=== PATIENT | female | born 1975 | race Caucasian/White ===

== ENCOUNTER → 2017-08-10 | Outpatient (CLI) | payer BC ==
--- NOTE | 2017-08-12 07:34 | MM ---
Reason for exam: screening (asymptomatic). Last mammogram was performed 1 year and 2 months ago. History: Patient is nulliparous. Family history of breast cancer in paternal aunt. Taking hormonal contraceptives for 17 years beginning at age 22. Physical Findings: A clinical breast exam by your physician is recommended on an annual basis and results should be correlated with mammographic findings. MG Screening Mammo w CAD Bilateral CC and MLO view(s) were taken. Prior study comparison: June 19, 2016, bilateral MG screening mammo w CAD. December 28, 2014, bilateral MG screening mammo w CAD. The breast tissue is heterogeneously dense. This may lower the sensitivity of mammography. No significant changes when compared with prior studies. ASSESSMENT: Negative, BI-RAD 1 RECOMMENDATION: Routine screening mammogram of both breasts in 1 year.
== END ==
LOC: RADMAMWWP 07:05
PROVIDERS: ATTEND Family Medicine
DX: Z12.31 Encounter for screening mammogram for malignant neoplasm of breast (principal)

== ENCOUNTER → 2017-11-23 | Outpatient (CLI) | payer BC | END | disposition home or self-care (01) | LOC: RADNMMAIN 09:14 | PROVIDERS: ATTEND Family Medicine | DX: Z53.9 Procedure and treatment not carried out, unspecified reason (principal) ==

== ENCOUNTER → 2017-11-23 | Outpatient (CLI) | payer BC ==
[2017-11-23 10:47] LABS: Basophils # (A) 0.1 k/uL (0-0.2); Basophils % (A) 0 %; Eosinophils % (A) 0 %; HCT 45.3 % (34.0-46.0); HGB 14.8 gm/dL (11.4-16.0); Lymphocytes # (A) 3.8 k/uL (1.0-4.8); Lymphocytes % (A) 28 %; MCH 30.6 pg (25.0-35.0); MCHC 32.6 g/dL (31.0-37.0); MCV 93.9 fL (80.0-100.0); Mean Platelet Volume 8.1; Monocytes # (A) 0.8 k/uL (0-1.0); Monocytes % (A) 6 %; Neutrophils # (A) 8.8 k/uL (1.3-7.7); Neutrophils % (A) 64 %; Platelet Count 227 k/uL (150-450); RBC 4.83 m/uL (3.80-5.40); RDW 12.4 % (11.5-15.5); WBC 13.7 k/uL (3.8-10.6)
[2017-11-23 11:12] LABS: Anion Gap 12 mmol/L; Blood Urea Nitrogen 14 mg/dL (7-17); Calcium 10.1 mg/dL (8.4-10.2); Carbon Dioxide 24 mmol/L (22-30); Chloride 103 mmol/L (98-107); Glucose 161 mg/dL (74-99); Potassium 4.8 mmol/L (3.5-5.1); Sodium 139 mmol/L (137-145)
== END | disposition home or self-care (01) ==
LOC: LABWHC1 09:43
PROVIDERS: ATTEND Nurse Practitioner
DX: I42.9 Cardiomyopathy, unspecified (principal)
CPT/HCPCS: 36415; 80048; 84443; 85025

== ENCOUNTER 2017-11-25 08:04 | Day surgery (SDC) | payer BC ==
[2017-11-24 09:03] VITALS: BMI 32.3
[~2017-11-25 08:04] MED LIST: ALPRAZolam 0.25 MG TAB PO PRN; ALPRAZolam 0.5 MG TAB PO PRN; ASPIRIN 325 MG TAB PO STA; ATORVASTATIN 80 MG TAB PO STA; NITROGLYCERIN SL TABS 0.4 MG TAB SUBLINGUAL PRN; SODIUM CHLORIDE 0.9% 1,000 ML in EMPTY BAG 1 BAG IV ONE
[2017-11-25 08:38] LABS: Glucose,Whole Blood 185 mg/dL (75-99)
[2017-11-25 08:39] VITALS: PULSE 96; RESP 20; TEMP 98.3
[2017-11-25] MEDS ORDERED: IV FLUID CONTINUATION 950 ML IV ONE (09:02)
[2017-11-25] MEDS ORDERED: fentaNYL (PF) 50 MCG/ML 2 ML AMP ONE (09:09)
[2017-11-25] MEDS ORDERED: MIDAZOLAM 2 MG/2 ML VIAL ONE (09:09)
[2017-11-25] MEDS ORDERED: MIDAZOLAM 2 MG/2 ML VIAL IV ONE (09:27)
[2017-11-25] MEDS ORDERED: LIDOCAINE 2% INJ 20 MG/ML SQ ONE (09:32)
[2017-11-25] MEDS ORDERED: IOHEXOL 350 MG/ML 125ML BOTTLE INJ ONE (09:43)
[2017-11-25] MEDS ORDERED: RX INFO: IV CONTRAST WAS GIVEN 1 EACH MISC MISCELLANE PRN (09:49)
[2017-11-25] MEDS ORDERED: SODIUM CHLORIDE 0.9% 1,000 ML IV SCH (10:00)
[2017-11-25 10:14] LABS: Glucose,Whole Blood 159 mg/dL (75-99)
--- NOTE | 2017-11-25 10:35 | CC ---
CARDIAC CATHETERIZATION REPORT INDICATION: Dilated cardiomyopathy. PROCEDURE NOTE: After obtaining informed consent, left heart catheterization and coronary angiogram were performed via the right femoral artery using standard Andrew catheters. The patient tolerated the procedure well without any obvious immediate complications. Patient received moderate conscious sedation. Total sedation time was 15 minutes. FINDINGS: 1. HEMODYNAMICS: Left ventricular end-diastolic pressure is 29 mm. There is no significant gradient across the aortic valve. 2. LEFT VENTRICULOGRAM: Left ventriculogram is not performed. 3. ANGIOGRAPHIC DATA:. Left Main Coronary Artery: Left main coronary artery is a normal-sized vessel and is free of stenosis. Divides into left anterior descending coronary artery and circumflex coronary artery. LAD and its branches, circumflex coronary artery and its branches are free of significant stenosis. Right coronary artery is a small caliber dominant vessel and is free of significant stenosis. CONCLUSIONS: 1. Normal coronary arteries. 2. Dilated cardiomyopathy. The patient had a femoral angiogram and Angio-Seal was deployed for hemostasis. PLAN: Patient will be treated with optimal medical therapy with beta blockers, MALIA inhibitors, diuretics. Reassess the LV function in [address] to [address] and if the LV dysfunction persists do a prophylactic AICD and consider referral to a tertiary care center for transplant evaluation. MMODL / IJN: [id number] /
[2017-11-25 15:55] VITALS: BP 126/75
== END 2017-11-25 15:00 | disposition home or self-care (01) ==
LOC: CATHCVL 08:04
PROVIDERS: ATTEND Internal Medicine Cardiovascular Disease
DX: I42.0 Dilated cardiomyopathy (principal); I10 Essential (primary) hypertension; Z82.49 Family history of ischemic heart disease and other diseases of the circulatory system; E11.9 Type 2 diabetes mellitus without complications; Z79.84 Long term (current) use of oral hypoglycemic drugs; E78.5 Hyperlipidemia, unspecified; Z79.3 Long term (current) use of hormonal contraceptives; Z79.899 Other long term (current) drug therapy
CPT/HCPCS: 93458; 81025; C1760; C1769 ×2; C1894; J2001; J2250; Q9967

== ENCOUNTER → 2018-04-01 | Outpatient (CLI) | payer BC ==
[2018-04-01 10:54] LABS: HGB 15.1 gm/dL (11.4-16.0); MCH 30.9 pg (25.0-35.0); MCHC 33.6 g/dL (31.0-37.0); Mean Platelet Volume 7.7; Platelet Count 186 k/uL (150-450); RBC 4.89 m/uL (3.80-5.40); RDW 13.1 % (11.5-15.5); WBC 14.4 k/uL (3.8-10.6)
[2018-04-01 11:19] LABS: Anion Gap 14 mmol/L; Blood Urea Nitrogen 13 mg/dL (7-17); Carbon Dioxide 22 mmol/L (22-30); Chloride 102 mmol/L (98-107); Potassium 4.6 mmol/L (3.5-5.1); Sodium 138 mmol/L (137-145)
== END | disposition home or self-care (01) ==
LOC: LABPAT 10:31
PROVIDERS: ATTEND Internal Medicine Cardiovascular Disease
DX: Z01.812 Encounter for preprocedural laboratory examination (principal); I25.5 Ischemic cardiomyopathy
CPT/HCPCS: 80051; 82565; 84520; 85027

== ENCOUNTER 2018-04-07 10:55 | Day surgery (SDC) | payer BC ==
[2018-03-30 09:40] VITALS: BMI 32.1
[~2018-04-07 10:55] MED LIST changes: -ALPRAZolam 0.25 MG TAB PO PRN; -ALPRAZolam 0.5 MG TAB PO PRN; -ASPIRIN 325 MG TAB PO STA; -ATORVASTATIN 80 MG TAB PO STA; -NITROGLYCERIN SL TABS 0.4 MG TAB SUBLINGUAL PRN; +ONDANSETRON 4 MG/2 ML VIAL IVP PRN; -SODIUM CHLORIDE 0.9% 1,000 ML in EMPTY BAG 1 BAG IV ONE; +ceFAZolin 1,000 MG in SODIUM CHLORIDE 0.9% IRRIGATIO 250 ML IRRIGATION ONE; +ceFAZolin IN SWFI 2 GM/20 ML SYRINGE IVP ONE; +fentaNYL (PF) 50 MCG/ML 2 ML AMP IV PRN
[2018-04-07] MEDS: SODIUM CHLORIDE 0.9% 1,000 ML IV SCH ×5 (11:30→15:29)
[2018-04-07 11:46] LABS: Glucose,Whole Blood 160 mg/dL (75-99)
[2018-04-07] MEDS ORDERED: PROPOFOL 10 MG/ML 20 ML VIAL IV ONE (12:04)
[2018-04-07] MEDS ORDERED: MIDAZOLAM 2 MG/2 ML VIAL ONE (12:04)
[2018-04-07] MEDS ORDERED: diphenhydrAMINE 50 MG/ML 1 ML VIAL ONE (12:04)
[2018-04-07] MEDS ORDERED: fentaNYL (PF) 50 MCG/ML 2 ML AMP ONE (12:04)
[2018-04-07] MEDS ORDERED: IOPAMIDOL-250 50ML BTL IV ONE (12:10)
[2018-04-07] MEDS ORDERED: LIDOCAINE 1% INJ 10MG/ML (20 ML MDV) ONE (12:22)
[2018-04-07] MEDS ORDERED: LIDOCAINE 1% INJ 10MG/ML (20 ML MDV) SQ ONE ×3 (12:29→12:44)
[2018-04-07] MEDS ORDERED: ACETAMINOPHEN TAB 325 MG TAB PO PRN (13:10)
--- NOTE | 2018-04-07 13:25 | P.PCN ---
Date of Procedure: 04/07/18 Preoperative Diagnosis: Ischemic cardiomyopathy, class 1-2 CHF. Postoperative Diagnosis: The same Procedure(s) Performed: Implantation of AICD Description of Procedure: HISTORY: This is a 42-year-old female with history of ischemic cardiac myopathy with class 1-2 congestive heart failure who was recommended to have prophylactic AICD implantation by Dr. Ward. CONSENT:I have discussed the risks, benefits and alternative therapies for the above-mentioned procedure and for both sedation/analgesia as well as necessary blood product administration, if indicated, as they pertain to this patient. The patient has indicated understanding and acceptance of the risks and procedures discussed. PROCEDURE: Patient was brought to the lab in a fasting state. Patient was prepped and draped in the usual fashion. Patient was given IV sedation with fentanyl and Versed. The skin below the left clavicle was infiltrated with lidocaine. An incision was made parallel to deltopectoral groove was deepened until the pectoral fascia was exposed. A pocket was created by blunt dissection and cautery. Axillary venography was performed to delineate the course of the axillary vein. 1 venous stick was performed into extrathoracic portion of the axillary vein and a single sheath was advanced over the guidewires and left in subclavian vein. Conscious Sedation: The sedation was administered by department of anesthesia , during entire procedure. Duration 44 minutes LEADS: VENTRICULAR: This is manufactured by [employer]. Model number is [id number] and the serial number is [id number]. THE DEVICE: This is manufactured by [employer] and model number is [id number]. THE SERIAL NUMBER [id number]. The ventricular lead is maneuvered l with help of a straight and curved stylets into the left ventricle apical region. Satisfactory position was obtained and threshold measurements were made. THRESHOLDS: VENTRICLE: The minimum patient threshold was 0.6 V at pulse width of 0.4. The impedance is a 79 ohms. R-wave: 16.8 The leads and pulse generator remained in the pocket after it was washed with antibiotics. Pocket was closed in the usual fashion. The fascia was closed with 2-0 Prolene ,the subcutaneous tissue was closed with 3-0 Prolene and the skin was closed with 4-0 Prolene. DFT TESTING: Patient was given deep anesthesia by department of anesthesia. VF was induced with T shock. 15 J shock failed to convert patient to sinus rhythm. 25 J shock did convert to sinus rhythm. Patient tolerated the procedure well. PROGRAMMING: Bradycardia therapy: MODE: VVI RATE: 40 OUTPUT: Ventricle: 3.5 V TACHYCARDIA THERAPY: VF zone is programmed to a rate of 1 88 bpm. The shocks were programmed to 356. The last 2 shocks were programmed with reversed quality. The VF zone is programmed to a rate of 167. The therapies were programmed to burst pacing followed by ramp pacing followed by cardioversion. Cardioversion is programmed to 25 J followed by 353. The monitor zone is programmed to a ventricular 450 ms FINAL IMPRESSION: #1. Axillary venography #2. Successful implantation of the single-chamber, single coil, AICD . #3. DFT testing COMPLICATIONS: None PLAN: Patient will be monitored on the telemetry unit. Prophylactic antibiotics be continued. Chest x-ray in the morning. He patient remains stable, patient will be discharged home tomorrow morning.
[2018-04-07] MEDS ORDERED: CYCLOBENZAPRINE 10 MG TAB PO PRN (14:37)
[2018-04-07] MEDS ORDERED: traMADol 50 MG TAB PO PRN (14:37)
[2018-04-07] MEDS: LACTATED RINGERS 1,000 ML IV SCH ×2 (15:28)
[2018-04-07 17:14] LABS: Glucose,Whole Blood 108 mg/dL (75-99)
[2018-04-07] MEDS: GABAPENTIN 300 MG CAP PO SCH ×2 (17:16→22:51)
[2018-04-07] MEDS: HYDROcodone/APAP 5-325MG 1 EACH TAB PO PRN ×2 (17:16→22:50)
[2018-04-07] MEDS: ceFAZolin IN SWFI 2 GM/20 ML SYRINGE IVP SCH ×2 (17:17→23:00)
[2018-04-07] MEDS: CARVEDILOL 12.5 MG TAB PO SCH (17:17)
[2018-04-07 20:37] LABS: Glucose,Whole Blood 205 mg/dL (75-99)
[2018-04-08] MEDS: SODIUM CHLORIDE 0.9% 1,000 ML IV SCH ×4 (03:11→05:55)
[2018-04-08] MEDS: HYDROcodone/APAP 5-325MG 1 EACH TAB PO PRN ×2 (03:14→07:26)
[2018-04-08] MEDS: ceFAZolin IN SWFI 2 GM/20 ML SYRINGE IVP SCH ×2 (05:03→11:21)
[2018-04-08 06:50] LABS: Glucose,Whole Blood 126 mg/dL (75-99)
--- NOTE | 2018-04-08 07:03 | XR ---
EXAMINATION TYPE: XR chest 2V DATE OF EXAM: 04/08/2018 COMPARISON: NONE HISTORY: Post pacemaker placement for arrhythmia. TECHNIQUE: Frontal and lateral views of the chest are obtained. FINDINGS: There is no focal air space opacity, pleural effusion, or pneumothorax seen. The cardiac silhouette size is within normal limits. There is single lead pacemaker/AICD terminating in right ve ntricle. The osseous structures are intact. IMPRESSION: No radiographic evidence for complication related to pacemaker/AICD placement.
[2018-04-08] MEDS: GABAPENTIN 300 MG CAP PO SCH (07:26)
[2018-04-08] MEDS: CARVEDILOL 12.5 MG TAB PO SCH (07:27)
[2018-04-08] MEDS ORDERED: DESVENLAFAXINE SUCCINATE 50 MG TAB.ER.24H PO SCH (09:00)
[2018-04-08] MEDS ORDERED: LISINOPRIL 10 MG TAB PO SCH (09:00)
[2018-04-08] MEDS ORDERED: Canagliflozin [Invokana] PO SCH (09:00)
[2018-04-08] MEDS ORDERED: JULEBER PO SCH (09:00)
[2018-04-08] MEDS ORDERED: ATORVASTATIN 20 MG TAB PO SCH (09:00)
[2018-04-08 09:06] VITALS: RESP 16
--- NOTE | 2018-04-08 09:09 | P.DS ---
Providers Date of admission: 04/07/2018 Attending physician: Nathaniel Flores Primary care physician: Wilton Richards - Discharge Diagnosis(es) (1) AICD (automatic cardioverter/defibrillator) present Current Visit: Yes Status: Acute (2) Cardiomyopathy Current Visit: Yes Status: Acute (3) Ischemic heart disease Current Visit: Yes Status: Acute (4) Chronic systolic heart failure Current Visit: Yes Status: Acute Hospital Course: This 42-year-old female with history of chronic ischemic heart disease, cardiomyopathy and congestive heart failure was referred by Dr. Ward for AICD implantation. Patient had a single-chamber single coil AICD implanted yesterday without any complications. Patient remained stable overnight. Complain some mild soreness at the site of the device. The site looks dry without any hematoma. Chest x-ray shows proper lead position. The device is going to be entirely later today. If the findings are stable, patient could be discharged home. She'll continue all home medications. She is given prophylactic Keflex 500 mg to be taken 3 times a day for 3 days. She is instructed to keep the dressing dry until seen in the office. She is also given usual instructions not to raise the arm above the shoulder level and provide any heavy lifting, pushing and pulling using left arm. She is instructed to call our office if she develops any fever, chills and was swelling or pain at the site. Follow-up in the office in one week. Plan - Discharge Summary Discharge Rx Participant: No New Discharge Prescriptions: New Cephalexin [Keflex] 500 mg PO Q8HR #10 cap No Action Desvenlafaxine [Pristiq ER] 100 mg PO DAILY Arturoeber 0.15/30mg 1 tab PO DAILY Atorvastatin [Lipitor] 20 mg PO DAILY traMADol HCl [Ultram] 50 mg PO Q6H PRN PRN Reason: Pain Gabapentin [Neurontin] 300 mg PO TID Cyclobenzaprine [Flexeril] 10 mg PO HS PRN PRN Reason: Pain Canagliflozin [Invokana] 300 mg PO DAILY Metformin 500 mg PO TID Sleeping Pill (Unknown Name) 1 tab PO HS PRN PRN Reason: Insomnia Lisinopril [Zestril] 10 mg PO DAILY Carvedilol [Coreg] 12.5 mg PO BID Discharge Medication List Atorvastatin [Lipitor] 20 mg PO DAILY 09/12/17 [History] Desvenlafaxine [Pristiq ER] 100 mg PO DAILY 09/12/17 [History] Juleber 0.15/30mg 1 tab PO DAILY 09/12/17 [History] Canagliflozin [Invokana] 300 mg PO DAILY 11/24/17 [History] Cyclobenzaprine [Flexeril] 10 mg PO HS PRN 11/24/17 [History] Gabapentin [Neurontin] 300 mg PO TID 11/24/17 [History] traMADol HCl [Ultram] 50 mg PO Q6H PRN 11/24/17 [History] Metformin 500 mg PO TID 03/30/18 [History] Sleeping Pill (Unknown Name) 1 tab PO HS PRN 03/30/18 [History] Carvedilol [Coreg] 12.5 mg PO BID 04/07/18 [History] Lisinopril [Zestril] 10 mg PO DAILY 04/07/18 [History] Cephalexin [Keflex] 500 mg PO Q8HR #10 cap 04/08/18 [Rx] Follow up Appointment(s)/Referral(s): Nathaniel Flores MD [STAFF PHYSICIAN] - 1 Week Discharge Disposition: HOME SELF-CARE
[2018-04-08] MEDS: LACTATED RINGERS 1,000 ML IV SCH ×2 (11:44)
[2018-04-08 12:27] VITALS: BP 119/73; PULSE 94; TEMP 98.1
[2018-04-08 17:47] LABS: Hemoglobin A1C 8.7 % (4.0-6.0)
== END 2018-04-08 12:42 | disposition home or self-care (01) ==
LOC: CATHEP 10:55 → 3OBS 13:15 → CATHEP 04-08 12:42
PROVIDERS: ATTEND Internal Medicine Cardiovascular Disease
DX: I25.5 Ischemic cardiomyopathy (principal); I50.22 Chronic systolic (congestive) heart failure; I11.0 Hypertensive heart disease with heart failure; Z00.6 Encounter for examination for normal comparison and control in clinical research program; G47.33 Obstructive sleep apnea (adult) (pediatric); Z72.0 Tobacco use; E11.9 Type 2 diabetes mellitus without complications; Z79.84 Long term (current) use of oral hypoglycemic drugs; M54.16 Radiculopathy, lumbar region; K58.9 Irritable bowel syndrome, unspecified; Z79.899 Other long term (current) drug therapy
CPT/HCPCS: 93641; 33249; 81025; 83036 ×2; 71046; C1769 ×2; C1892; C1895; C1722; J2250; J1200; J2001; J3010; J2704; J0690 ×2; Q9966

== ENCOUNTER → 2018-06-28 | Outpatient (CLI) | payer BC | END | disposition home or self-care (01) | LOC: RADUSWWP 13:37 | PROVIDERS: ATTEND Family Medicine | DX: I73.9 Peripheral vascular disease, unspecified (principal) | CPT/HCPCS: 93923 ==

== ENCOUNTER 2018-11-17 13:22 | Emergency (ER) | payer BC ==
[2018-11-17 13:30] VITALS: RESP 18
--- NOTE | 2018-11-17 14:21 | ED ---
Extremity Problem HPI - General Chief complaint: Extremity Problem,Nontraumatic Stated complaint: pain in both arms Time Seen by Provider: 11/17/18 14:04 Source: patient Mode of arrival: wheelchair Limitations: no limitations - History of Present Illness Initial comments: 43-year-old female with past history of [id number] diabetes, hypertension, hyperlipidemia, heart arrhythmia on pacemaker/defibrillator, peripheral neuropathy presenting to emergency department this afternoon for multiple complaints. Patient states that she has had bilateral shoulder pain that increases with range of motion since Wednesday, she states she was previously told she had rotator cuff injuries, and has suffered with chronic pain however it has been worsening for the past 4 days. Patient denies any recent shoulder injury. In addition he shouldn't states that her right foot is cool to touch and painful. She states that it feels numb. She states the pain increases with walking, and decreases when she covers at up with blankets and sits down. Patient states that this began at 4:30 this morning. She has experienced these symptoms intermittently over the past few years. Upon chart review I noticed a normal JIM completed June 2018. In addition patient states that she has had night sweats for the past or days, she did notice a tight sensation in her chest denies dyspnea or dyspnea on exertion. Patient states she presented to her primary care provider this morning where an EKG was obtained, she was to follow-up with him on Wednesday. Pt was not instructed to come to the ER, she states she presented when the pain persisted in her right foot and shoulder. Upon ROS pt states she does have back pain consistent with her usual back pain since her low back surgery 08/11/18 at [facility]. Patient denies any recent fever, cough, congestion, abdominal pain, nausea or vomiting, dysuria or hematuria, constipation or diarrhea, headaches or visual changes, or any other complaints. Upon arrival pt HR elevated, BP within normal limits she does not appear to in distress. - Related Data Home Medications Medication Instructions Recorded Confirmed Atorvastatin [Lipitor] 20 mg PO DAILY 09/12/17 11/17/18 Desvenlafaxine [Pristiq ER] 100 mg PO DAILY 09/12/17 11/17/18 Juleber 0.15/30mg 1 tab PO DAILY 09/12/17 11/17/18 Canagliflozin [Invokana] 300 mg PO DAILY 11/24/17 11/17/18 Lisinopril [Zestril] 10 mg PO DAILY 04/07/18 11/17/18 Amitriptyline HCl [Elavil] 10 mg PO HS 11/17/18 11/17/18 Carvedilol [Coreg] 25 mg PO BID 11/17/18 11/17/18 Dulaglutide [Trulicity] 1.5 mg SQ ROSS 11/17/18 11/17/18 Ibuprofen [Motrin] 800 mg PO TID PRN 11/17/18 11/17/18 Spironolactone [Aldactone] 12.5 mg PO DAILY 11/17/18 11/17/18 busPIRone HCl [Buspar] 10 mg PO BID 11/17/18 11/17/18 Allergies Allergy/AdvReac Type Severity Reaction Status Date / Time No Known Allergies Allergy Verified 11/17/18 16:08 Review of Systems ROS Statement: Those systems with pertinent positive or pertinent negative responses have been documented in the HPI. ROS Other: All systems not noted in ROS Statement are negative. Past Medical History Past Medical History: Diabetes Mellitus, Hyperlipidemia, Hypertension, Skin Disorder, Sleep Apnea/CPAP/BIPAP Additional Past Medical History / Comment(s): Gets cysts, boil left outer thigh , - resolved. Back pain-currently waiting to have back surgery - Fusion L4-L5. "Weak and enlarged heart." CPAP use, IBS, nerve pain in right leg, occasionally in left leg. History of Any Multi-Drug Resistant Organisms: None Reported Past Surgical History: AICD, Back Surgery, Heart Catheterization, Pacemaker Additional Past Surgical History / Comment(s): Tubes brandie ears, right ear surgery , removal of cyst from ovaries. Past Anesthesia/Blood Transfusion Reactions: No Reported Reaction Past Psychological History: Anxiety, Depression Smoking Status: Current every day smoker Past Alcohol Use History: Occasional Past Drug Use History: None Reported - Past Family History Mother Family Medical History: Cancer Additional Family Medical History / Comment(s): melanoma General Exam - General Exam Comments Initial Comments: General: The patient is awake and alert, in no distress, and does not appear acutely ill. Eye: Pupils are equal, round and reactive to light, extra-ocular movements are intact. No nystagmus. There is normal conjunctiva bilaterally. No signs of icterus. Ears, nose, mouth and throat: There are moist mucous membranes and no oral lesions. Neck: The neck is supple, there is no tenderness or JVD. Cardiovascular: There is a regular rate and rhythm. No murmur, rub or gallop is appreciated. Respiratory: Lungs are clear to auscultation, respirations are non-labored, breath sounds are equal. No wheezes, stridor, rales, or rhonchi. Gastrointestinal: Soft, non-distended, non-tender abdomen without masses or organomegaly noted. There is no rebound or guarding present. No CVA tenderness. Bowel sounds are unremarkable. Musculoskeletal: Normal ROM, no tenderness. Strength 5/5. Sensation intact. Radial pulses equal bilaterally 2+. Coolness to palpation of the right LE. Non palpable right DP pulse. Neurological: A&O x 3. CN II-XII intact, There are no obvious motor or sensory deficits. Coordination appears grossly intact. Speech is normal. Skin: Skin is warm and dry and no rashes or lesions are noted. Psychiatric: Cooperative, appropriate mood & affect, normal judgment. Limitations: no limitations Course Vital Signs 11/17/18 11/17/18 13:23 16:03 Temperature 97.5 F L Pulse Rate 112 H 95 Respiratory 18 18 Rate Blood Pressure 110/73 124/62 O2 Sat by Pulse 100 98 Oximetry - Reevaluation(s) Reevaluation #1: Critical plt count received by laboratory. Discussed with attending provider, Dr. Pillai. 11/17/18 Medical Decision Making - Medical Decision Making 43-year-old female presenting today for chief complaint of coolness and pain of the right foot. Patient states this began at 4:30 PM. Patient was evaluated by her primary care provider. Patient presents emergency department for persistent symptoms. Absent dorsalis pedis pulse and coolness to palpation of the right foot. CTA obtained revealing no flow distal to the ankle of the right LE. Pt plt 7, repeat 9. Pt evaluated by attending Dr. Pillai at this time we feel pt has probably occlusion of right LE peripheral artery. Vascular surgeon Dr. Martinez consulted, speaking with attending provider whom is familiar with case, recommended transfer to [facility] for further treatment evaluation. I spoke with surgeon Dr. Herrera at 17:10 who accepted admission and transfer. ER to ER category 1. No further instruction. Disc will be sent with patient as well as radiology read. Pt given morphine 6mg IVP and steroids prior to transfer. Pt is agreeable with transfer, denied questions at this time. - Lab Data Result diagrams: 11/17/18 15:20 11/17/18 14:35 Lab Results 11/17/18 11/17/18 11/17/18 Range/Units 14:35 14:35 14:35 WBC 8.6 (3.8-10.6) k/uL RBC 5.15 (3.80-5.40) m/uL Hgb 15.3 (11.4-16.0) gm/dL Hct 46.4 H (34.0-46.0) % MCV 89.9 (80.0-100.0) fL MCH 29.8 (25.0-35.0) pg MCHC 33.1 (31.0-37.0) g/dL RDW 13.9 (11.5-15.5) % Plt Count 7 L* (150-450) k/uL Neutrophils % 86 % Lymphocytes % 8 % Monocytes % 4 % Eosinophils % 1 % Basophils % 0 % Neutrophils # 7.3 (1.3-7.7) k/uL Lymphocytes # 0.6 L (1.0-4.8) k/uL Monocytes # 0.3 (0-1.0) k/uL Eosinophils # 0.0 (0-0.7) k/uL Basophils # 0.0 (0-0.2) k/uL Manual Slide Review Performed Toxic Granulation Present Toxic Vacuolation Present Large Platelets Present PT (9.0-12.0) sec INR (<1.2) APTT (22.0-30.0) sec Sodium 127 L (137-145) mmol/L Potassium 4.0 (3.5-5.1) mmol/L Chloride 97 L (98-107) mmol/L Carbon Dioxide 16 L (22-30) mmol/L Anion Gap 14 mmol/L BUN 27 H (7-17) mg/dL Creatinine 0.67 (0.52-1.04) mg/dL Est GFR (CKD-EPI)AfAm >90 (>60 ml/min/1.73 sqM) Est GFR (CKD-EPI)NonAf >90 (>60 ml/min/1.73 sqM) Glucose 382 H (74-99) mg/dL Calcium 9.0 (8.4-10.2) mg/dL Magnesium 2.2 (1.6-2.3) mg/dL Total Bilirubin 1.5 H (0.2-1.3) mg/dL AST 76 H (14-36) U/L ALT 42 (9-52) U/L Alkaline Phosphatase 156 H (38-126) U/L Total Creatine Kinase 21 L (30-135) U/L CK-MB (CK-2) <0.2 (0.0-2.4) ng/mL CK-MB (CK-2) Rel Index Troponin I <0.012 (0.000-0.034) ng/mL NT-Pro-B Natriuret Pep pg/mL Total Protein 6.1 L (6.3-8.2) g/dL Albumin 3.1 L (3.5-5.0) g/dL Acetone, Qual (Negative) 11/17/18 11/17/18 11/17/18 Range/Units 14:35 14:35 15:00 WBC (3.8-10.6) k/uL RBC (3.80-5.40) m/uL Hgb (11.4-16.0) gm/dL Hct (34.0-46.0) % MCV (80.0-100.0) fL MCH (25.0-35.0) pg MCHC (31.0-37.0) g/dL RDW (11.5-15.5) % Plt Count (150-450) k/uL Neutrophils % % Lymphocytes % % Monocytes % % Eosinophils % % Basophils % % Neutrophils # (1.3-7.7) k/uL Lymphocytes # (1.0-4.8) k/uL Monocytes # (0-1.0) k/uL Eosinophils # (0-0.7) k/uL Basophils # (0-0.2) k/uL Manual Slide Review Toxic Granulation Toxic Vacuolation Large Platelets PT 9.7 (9.0-12.0) sec INR 0.9 (<1.2) APTT 24.7 (22.0-30.0) sec Sodium (137-145) mmol/L Potassium (3.5-5.1) mmol/L Chloride (98-107) mmol/L Carbon Dioxide (22-30) mmol/L Anion Gap mmol/L BUN (7-17) mg/dL Creatinine (0.52-1.04) mg/dL Est GFR (CKD-EPI)AfAm (>60 ml/min/1.73 sqM) Est GFR (CKD-EPI)NonAf (>60 ml/min/1.73 sqM) Glucose (74-99) mg/dL Calcium (8.4-10.2) mg/dL Magnesium (1.6-2.3) mg/dL Total Bilirubin (0.2-1.3) mg/dL AST (14-36) U/L ALT (9-52) U/L Alkaline Phosphatase (38-126) U/L Total Creatine Kinase (30-135) U/L CK-MB (CK-2) (0.0-2.4) ng/mL CK-MB (CK-2) Rel Index Troponin I (0.000-0.034) ng/mL NT-Pro-B Natriuret Pep 730 pg/mL Total Protein (6.3-8.2) g/dL Albumin (3.5-5.0) g/dL Acetone, Qual Negative (Negative) 11/17/18 Range/Units 15:20 WBC (3.8-10.6) k/uL RBC (3.80-5.40) m/uL Hgb (11.4-16.0) gm/dL Hct (34.0-46.0) % MCV (80.0-100.0) fL MCH (25.0-35.0) pg MCHC (31.0-37.0) g/dL RDW (11.5-15.5) % Plt Count 9 L* (150-450) k/uL Neutrophils % % Lymphocytes % % Monocytes % % Eosinophils % % Basophils % % Neutrophils # (1.3-7.7) k/uL Lymphocytes # (1.0-4.8) k/uL Monocytes # (0-1.0) k/uL Eosinophils # (0-0.7) k/uL Basophils # (0-0.2) k/uL Manual Slide Review Toxic Granulation Toxic Vacuolation Large Platelets PT (9.0-12.0) sec INR (<1.2) APTT (22.0-30.0) sec Sodium (137-145) mmol/L Potassium (3.5-5.1) mmol/L Chloride (98-107) mmol/L Carbon Dioxide (22-30) mmol/L Anion Gap mmol/L BUN (7-17) mg/dL Creatinine (0.52-1.04) mg/dL Est GFR (CKD-EPI)AfAm (>60 ml/min/1.73 sqM) Est GFR (CKD-EPI)NonAf (>60 ml/min/1.73 sqM) Glucose (74-99) mg/dL Calcium (8.4-10.2) mg/dL Magnesium (1.6-2.3) mg/dL Total Bilirubin (0.2-1.3) mg/dL AST (14-36) U/L ALT (9-52) U/L Alkaline Phosphatase (38-126) U/L Total Creatine Kinase (30-135) U/L CK-MB (CK-2) (0.0-2.4) ng/mL CK-MB (CK-2) Rel Index Troponin I (0.000-0.034) ng/mL NT-Pro-B Natriuret Pep pg/mL Total Protein (6.3-8.2) g/dL Albumin (3.5-5.0) g/dL Acetone, Qual (Negative) - EKG Data EKG Comments: Ventricular rate 105 bpm, UT interval 156 ms, QRS duration 90 ms, QT/QTC 352/ 465 ms. This is sinus tachycardia with occasional premature ventricular complexes. No evidence of ST elevation or depression concerning for acute coronary syndrome at this time. Disposition Clinical Impression: Peripheral artery occlusion, Cold right foot, Thrombocytopenia, Hyponatremia, Hypochloremia Disposition: OTHER INSTITUTION NOT DEFINED Condition: Stable Instructions: Peripheral Artery Disease (ED) Is patient prescribed a controlled substance at d/c from ED?: No Referrals: Wilton Richards MD [Primary Care Provider] - 1-2 days Time of Disposition: 16:58 - Out of Hospital Transfer - Req. Specs Out of Hospital Transfer - Requested Specifics: Other Emergency Center ([facility])
[2018-11-17] MEDS ORDERED: RX INFO: IV CONTRAST WAS GIVEN 1 EACH MISC MISCELLANE PRN (14:23)
[2018-11-17] MEDS ORDERED: ASPIRIN 81 MG PO STA (14:28)
[2018-11-17] MEDS ORDERED: SODIUM CHLORIDE 0.9% 500 ML 500 ML IV ONE ×2 (14:28→15:13)
--- NOTE | 2018-11-17 14:52 | XR ---
EXAMINATION TYPE: XR chest 2V DATE OF EXAM: 11/17/2018 COMPARISON: Chest x-ray April 08, 2018. HISTORY: Chest pain. TECHNIQUE: Frontal and lateral views of the chest are obtained. FINDINGS: There is no focal air space opacity, pleural effusion, or pneumothorax seen. The cardiac silhouette size is within normal limits. There is single lead pacemaker/AICD redemonstrated. The osse ous structures are intact. IMPRESSION: No acute cardiopulmonary process. No significant change from prior.
[2018-11-17 14:56] LABS: Basophils % (A) 0 %; Eosinophils % (A) 1 %; HCT 46.4 % (34.0-46.0); HGB 15.3 gm/dL (11.4-16.0); Lymphocytes # (A) 0.6 k/uL (1.0-4.8); Lymphocytes % (A) 8 %; MCH 29.8 pg (25.0-35.0); MCHC 33.1 g/dL (31.0-37.0); MCV 89.9 fL (80.0-100.0); Mean Platelet Volume 11.1; Monocytes # (A) 0.3 k/uL (0-1.0); Monocytes % (A) 4 %; Neutrophils # (A) 7.3 k/uL (1.3-7.7); Neutrophils % (A) 86 %; RBC 5.15 m/uL (3.80-5.40); RDW 13.9 % (11.5-15.5); WBC 8.6 k/uL (3.8-10.6)
[2018-11-17 15:02] LABS: ALT 42 U/L (9-52); AST 76 U/L (14-36); Albumin 3.1 g/dL (3.5-5.0); Alkaline Phosphatase 156 U/L (38-126); Anion Gap 14 mmol/L; Blood Urea Nitrogen 27 mg/dL (7-17); Carbon Dioxide 16 mmol/L (22-30); Chloride 97 mmol/L (98-107); Glucose 382 mg/dL (74-99); INR 0.9 (<1.2); Magnesium 2.2 mg/dL (1.6-2.3); Partial Thromboplastin Time 24.7 sec (22.0-30.0); Prothrombin Time 9.7 sec (9.0-12.0); Sodium 127 mmol/L (137-145); Total Bilirubin 1.5 mg/dL (0.2-1.3); Total Protein 6.1 g/dL (6.3-8.2)
[2018-11-17 15:04] LABS: Creatine Kinase 21 U/L (30-135)
[2018-11-17 15:17] LABS: Creatine Kinase MB <0.2 ng/mL (0.0-2.4); Troponin I <0.012 ng/mL (0.000-0.034)
[2018-11-17 15:35] LABS: Mean Platelet Volume 13.4
[2018-11-17 15:36] LABS: Platelet Count 7 k/uL (150-450)
[2018-11-17 15:37] LABS: Platelet Count 9 k/uL (150-450)
[2018-11-17 15:38] LABS: Toxic Granulation Present; Toxic Vacuolation Present
[2018-11-17 15:39] LABS: Large Platelets Present
--- NOTE | 2018-11-17 16:15 | CT ---
EXAMINATION TYPE: CT angio lower extremity RT DATE OF EXAM: 11/17/2018 COMPARISON: None HISTORY: 43-year-old female right foot numbness, Left lower quadrant pain. TECHNIQUE: Contiguous axial scanning of the lower abdomen, pelvis, with bilateral lower extremity run off performed with IV Contrast, patient injected with 125 mL of Isovue 370. Coronal/sagittal MIP emilie nstructions performed. 3-D reconstructions generated on a dedicated independent workstation. CT DLP: 1331 mGycm Automated exposure control for dose reduction was used. FINDINGS: Focal vascular blush within the right hepatic lobe likely vascular shunting. No biliary ductal dilata tion. Gallbladder, visualized portions of the kidneys and pancreas show no gross anomaly. No dilated small bowel, free fluid, or free air identified. Scattered mild stool burden. No pericolonic inflamma tory change. Bladder urine distended. Uterus and both ovaries are visualized. SMA and bilateral hawkins renal arteries are patent. Mild atelectatic calcifications within the inf rarenal abdominal aorta and within the right common iliac artery. Right: Patent right iliac arteries. Common and superficial femoral arteries as well as the popliteal artery are patent. The trifurcation vessels are patent. The trifurcation vessels become very diminutive at the mid leg l evel and are not seen into the foot. Rescan through the legs shows improved opacification of these trifurcation vessels. The peroneal da ry is seen to the distal third leg level. The anterior and posterior tibial arteries are seen to the level of the ankle. Left: 7 minimal eccentric atherosclerotic plaque in the left common iliac artery. Left common and superficial femoral arteries are patent. Left popliteal artery and trifurcation are patent. The trifurcation vessels are patent. Peroneal da ry is seen to the distal lead level. There is two-vessel runoff via the posterior and anterior tibial arteries. Bones: L4-L5 posterior fusion with fixed grade 1 anterolisthesis here. IMPRESSION: ASYMMETRIC RUNOFF WITH THE RIGHT-SIDED TRIFURCATION VESSELS BECOMING DIMINUTIVE AT THE MID LEG LEVEL. RESCAN THROUGH THE LEGS IN CASE THE SCAN OUT RAN THE CONTRAST BOLUS SHOWS IMPROVED OPACIFICATION. T HE RIGHT PERONEAL ARTERY IS NOW SEEN DOWN TO THE DISTAL THIRD LEG. THE RIGHT ANTERIOR AND POSTERIOR T IBIAL ARTERIES ARE SEEN TO THE ANKLE LEVEL. THE REASON FOR VISUALIZING THE VESSELS ONLY TO THE LEVEL OF THE ANKLE IS UNCLEAR NO FOCAL STENOTIC LESION OR SIGNIFICANT ATHEROSCLEROTIC CHANGE IS IDENTIFI ED. FURTHER CLINICAL CORRELATION RECOMMENDED.
[2018-11-17] MEDS ORDERED: DEXAMETHASONE SOD PHOSPHATE 10 MG/ML 1 ML VIAL IV STA (16:45)
[2018-11-17] MEDS ORDERED: MORPHINE SULFATE 4 MG/ML SYRINGE IVP STA (16:45)
[2018-11-17 17:11] VITALS: BP 130/70; PULSE 99; TEMP 96.7
== END 2018-11-17 18:15 | disposition short-term general hospital (02) ==
LOC: EC 13:22
DX: E87.8 Other disorders of electrolyte and fluid balance, not elsewhere classified (principal); E87.1 Hypo-osmolality and hyponatremia; D69.6 Thrombocytopenia, unspecified; E11.51 Type 2 diabetes mellitus with diabetic peripheral angiopathy without gangrene; I49.3 Ventricular premature depolarization; R00.0 Tachycardia, unspecified; G89.29 Other chronic pain; M54.9 Dorsalgia, unspecified; E78.5 Hyperlipidemia, unspecified; I11.9 Hypertensive heart disease without heart failure; E11.42 Type 2 diabetes mellitus with diabetic polyneuropathy; G47.30 Sleep apnea, unspecified; F32.9 Major depressive disorder, single episode, unspecified; F41.9 Anxiety disorder, unspecified; F17.200 Nicotine dependence, unspecified, uncomplicated; Z79.84 Long term (current) use of oral hypoglycemic drugs; Z79.899 Other long term (current) drug therapy; Z99.89 Dependence on other enabling machines and devices; Z79.3 Long term (current) use of hormonal contraceptives; Z95.0 Presence of cardiac pacemaker
CPT/HCPCS: 36415; 93005; 83880; 80053; 82550; 82553; 82009; 83735; 84484; 85025; 85049; 85610; 85730; 71046; 73706; 99285; 96374; 96375; 96361 ×3; J2270; J1100; Q9967

== ENCOUNTER 2019-01-13 18:28 | Inpatient (IN) | payer BC ==
--- NOTE | 2019-01-13 18:53 | ED ---
General Adult HPI - General Chief complaint: Arrhythmia/Palpitations Stated complaint: High Heart Rate Time Seen by Provider: 01/13/19 18:43 Source: patient, RN notes reviewed, old records reviewed Mode of arrival: ambulatory Limitations: no limitations - History of Present Illness Initial comments: 43-year-old female presenting with palpitations and elevated heart rate. Patient has history of cardiomyopathy status post pacemaker defibrillator. She states her heart rate has been elevated greater than 110 for the past one month. She did attempt to undergo physical therapy today but they would not initiate physical therapy for chronic back pain secondary to elevated heart rate. Her ms access database developer was contacted and the patient reports that she was instructed to present to the emergency department for evaluation. Patient denies any new or worsening pain complaints. No chest pain or dyspnea. She has been compliant with her medications which include anticoagulation and 25 mg Coreg. - Related Data Home Medications Medication Instructions Recorded Confirmed Desvenlafaxine [Pristiq ER] 100 mg PO DAILY 09/12/17 01/13/19 Lisinopril [Zestril] 10 mg PO DAILY 04/07/18 01/13/19 Carvedilol [Coreg] 25 mg PO BID 11/17/18 01/13/19 Spironolactone [Aldactone] 25 mg PO DAILY 11/17/18 01/13/19 busPIRone HCl [Buspar] 10 mg PO BID 11/17/18 01/13/19 Apixaban [Eliquis] 5 mg PO BID 01/13/19 01/13/19 Buprenorphine HCl [Belbuca] 150 mcg BUCCAL Q12H 01/13/19 01/13/19 Cholecalciferol [Vitamin D3] 400 unit PO DAILY 01/13/19 01/13/19 INSULIN LISPRO (HumaLOG) [HumaLOG] 10 unit SQ TID 01/13/19 01/13/19 Insulin Glargine [Lantus] 40 unit SQ DAILY 01/13/19 01/13/19 Semaglutide [Ozempic] 0.5 mg SQ MO 01/13/19 01/13/19 traMADol HCL [Ultram] 50 mg PO BID PRN 01/13/19 01/13/19 Allergies Allergy/AdvReac Type Severity Reaction Status Date / Time No Known Allergies Allergy Verified 01/13/19 19:27 Review of Systems ROS Statement: Those systems with pertinent positive or pertinent negative responses have been documented in the HPI. ROS Other: All systems not noted in ROS Statement are negative. Past Medical History Past Medical History: Diabetes Mellitus, Hyperlipidemia, Hypertension, Skin Disorder, Sleep Apnea/CPAP/BIPAP Additional Past Medical History / Comment(s): Gets cysts, boil left outer thigh, - resolved. Back pain-currently waiting to have back surgery - Fusion L4-L5. "Weak and enlarged heart." CPAP use, IBS, nerve pain in right leg, occasionally in left leg. History of Any Multi-Drug Resistant Organisms: None Reported Past Surgical History: AICD, Back Surgery, Heart Catheterization, Pacemaker Additional Past Surgical History / Comment(s): Tubes brandie ears, right ear surgery, removal of cyst from ovaries. Past Anesthesia/Blood Transfusion Reactions: No Reported Reaction Past Psychological History: Anxiety, Depression Smoking Status: Current every day smoker Past Alcohol Use History: Occasional Past Drug Use History: None Reported - Past Family History Mother Family Medical History: Cancer Additional Family Medical History / Comment(s): melanoma General Exam Limitations: no limitations General appearance: alert, in no apparent distress Head exam: Present: atraumatic, normocephalic Eye exam: Present: normal appearance, PERRL, EOMI ENT exam: Present: normal exam Neck exam: Present: normal inspection. Absent: tenderness, meningismus Respiratory exam: Present: normal lung sounds bilaterally. Absent: respiratory distress, wheezes Cardiovascular Exam: Present: normal rhythm, tachycardia GI/Abdominal exam: Present: soft. Absent: distended, tenderness, guarding Extremities exam: Present: normal inspection, normal capillary refill. Absent: calf tenderness Neurological exam: Present: alert, oriented X3, CN II-XII intact. Absent: motor sensory deficit Psychiatric exam: Present: normal affect, normal mood. Absent: anxious, flat affect Course Vital Signs 01/13/19 01/13/19 18:38 20:01 Temperature 98.6 F Pulse Rate 109 H 111 H Respiratory 18 16 Rate Blood Pressure 104/63 116/68 O2 Sat by Pulse 100 100 Oximetry EKG Findings - EKG Comments: EKG Findings:: EKG, sinus tachycardia, ventricular rate of 105, AL interval 182, QRS duration 96, QTC 496, no ST segment elevation. Medical Decision Making - Medical Decision Making 43-year-old female presents Dictated past medical history presenting with palpitations. Patient was instructed to present to the emergency department. She has history of cardiomyopathy status post pacemaker defibrillator. Heart rate has been elevated for the past one month. She also has recent diagnosis of pulmonary embolism, pneumonia, ITP, TTP, DIC. She was admitted at [facility] for approximately 20 days, November 17 through the end of November. I did submit for records, these are unavailable at the time of this dictation. Workup in the emergency department reveals EKG which is sinus tach no ST segment elevation, chest x-ray shows concern for cavitary right lower lung pneumonia. Patient does report a history of pneumonia, she does endorse mild dyspnea and given the leukocytosis 12.1, she was initiated on antibiotics although I suspect this is chronic and awaiting previous workup at [facility]. Hemoglobin 10.2, platelets have returned to normal at 285. Magnesium 1.6 which is replaced. Troponin negative. Patient will be admitted with cardiology on consult. Repeat laboratory studies will be obtained in the morning to ensure stability. Given 1 dose of antibiotics for suspected healthcare associated pneumonia. Case discussed with Dr. Meza will admit. - Lab Data Result diagrams: 01/13/19 19:24 01/13/19 19:24 Lab Results 01/13/19 01/13/19 01/13/19 Range/Units 19:24 19:24 19:24 WBC 12.1 H (3.8-10.6) k/uL RBC 3.79 L (3.80-5.40) m/uL Hgb 10.2 L D (11.4-16.0) gm/dL Hct 32.1 L (34.0-46.0) % MCV 84.6 D (80.0-100.0) fL MCH 27.0 (25.0-35.0) pg MCHC 31.9 (31.0-37.0) g/dL RDW 16.1 H (11.5-15.5) % Plt Count 285 D (150-450) k/uL Neutrophils % 58 % Lymphocytes % 31 % Monocytes % 8 % Eosinophils % 0 % Basophils % 1 % Neutrophils # 7.0 (1.3-7.7) k/uL Lymphocytes # 3.7 (1.0-4.8) k/uL Monocytes # 1.0 (0-1.0) k/uL Eosinophils # 0.0 (0-0.7) k/uL Basophils # 0.1 (0-0.2) k/uL Hypochromasia Moderate Poikilocytosis Slight Anisocytosis Slight PT (9.0-12.0) sec INR (<1.2) APTT (22.0-30.0) sec Sodium 135 L (137-145) mmol/L Potassium 4.3 (3.5-5.1) mmol/L Chloride 96 L (98-107) mmol/L Carbon Dioxide 31 H (22-30) mmol/L Anion Gap 8 mmol/L BUN 8 (7-17) mg/dL Creatinine 0.57 (0.52-1.04) mg/dL Est GFR (CKD-EPI)AfAm >90 (>60 ml/min/1.73 sqM) Est GFR (CKD-EPI)NonAf >90 (>60 ml/min/1.73 sqM) Glucose 207 H (74-99) mg/dL Calcium 9.4 (8.4-10.2) mg/dL Magnesium 1.6 (1.6-2.3) mg/dL Total Bilirubin 0.4 (0.2-1.3) mg/dL AST 15 (14-36) U/L ALT 27 (9-52) U/L Alkaline Phosphatase 102 (38-126) U/L Troponin I (0.000-0.034) ng/mL NT-Pro-B Natriuret Pep 76 pg/mL Total Protein 7.0 (6.3-8.2) g/dL Albumin 3.4 L (3.5-5.0) g/dL Urine Color Urine Appearance (Clear) Urine pH (5.0-8.0) Ur Specific [place] (1.001-1.035) Urine Protein (Negative) Urine Glucose (UA) (Negative) Urine Ketones (Negative) Urine Blood (Negative) Urine Nitrite (Negative) Urine Bilirubin (Negative) Urine Urobilinogen (<2.0) mg/dL Ur Leukocyte Esterase (Negative) Urine RBC (0-5) /hpf Urine WBC (0-5) /hpf Ur Squamous Epith Cells (0-4) /hpf Urine Bacteria (None) /hpf Urine Mucus (None) /hpf 01/13/19 01/13/19 01/13/19 Range/Units 19:24 19:24 19:50 WBC (3.8-10.6) k/uL RBC (3.80-5.40) m/uL Hgb (11.4-16.0) gm/dL Hct (34.0-46.0) % MCV (80.0-100.0) fL MCH (25.0-35.0) pg MCHC (31.0-37.0) g/dL RDW (11.5-15.5) % Plt Count (150-450) k/uL Neutrophils % % Lymphocytes % % Monocytes % % Eosinophils % % Basophils % % Neutrophils # (1.3-7.7) k/uL Lymphocytes # (1.0-4.8) k/uL Monocytes # (0-1.0) k/uL Eosinophils # (0-0.7) k/uL Basophils # (0-0.2) k/uL Hypochromasia Poikilocytosis Anisocytosis PT 10.5 (9.0-12.0) sec INR 1.0 (<1.2) APTT 26.7 (22.0-30.0) sec Sodium (137-145) mmol/L Potassium (3.5-5.1) mmol/L Chloride (98-107) mmol/L Carbon Dioxide (22-30) mmol/L Anion Gap mmol/L BUN (7-17) mg/dL Creatinine (0.52-1.04) mg/dL Est GFR (CKD-EPI)AfAm (>60 ml/min/1.73 sqM) Est GFR (CKD-EPI)NonAf (>60 ml/min/1.73 sqM) Glucose (74-99) mg/dL Calcium (8.4-10.2) mg/dL Magnesium (1.6-2.3) mg/dL Total Bilirubin (0.2-1.3) mg/dL AST (14-36) U/L ALT (9-52) U/L Alkaline Phosphatase (38-126) U/L Troponin I <0.012 (0.000-0.034) ng/mL NT-Pro-B Natriuret Pep pg/mL Total Protein (6.3-8.2) g/dL Albumin (3.5-5.0) g/dL Urine Color Light Yellow Urine Appearance Clear (Clear) Urine pH 6.0 (5.0-8.0) Ur Specific [place] 1.007 (1.001-1.035) Urine Protein Negative (Negative) Urine Glucose (UA) Trace H (Negative) Urine Ketones Negative (Negative) Urine Blood Moderate H (Negative) Urine Nitrite Negative (Negative) Urine Bilirubin Negative (Negative) Urine Urobilinogen <2.0 (<2.0) mg/dL Ur Leukocyte Esterase Negative (Negative) Urine RBC 1 (0-5) /hpf Urine WBC 1 (0-5) /hpf Ur Squamous Epith Cells 2 (0-4) /hpf Urine Bacteria Rare H (None) /hpf Urine Mucus Rare H (None) /hpf Disposition Clinical Impression: AICD (automatic cardioverter/defibrillator) present, Cardiomyopathy, Pneumonia, Pulmonary embolism Disposition: ADMITTED IP TO THIS [facility] Condition: Stable Is patient prescribed a controlled substance at d/c from ED?: No Referrals: Wilton Richards MD [Primary Care Provider] - 1-2 days Decision to Admit Reason: Admit from EC Decision Date: 01/13/19 Decision Time: 21:32
[2019-01-13 19:44] LABS: Anisocytosis Slight; Basophils # (A) 0.1 k/uL (0-0.2); Basophils % (A) 1 %; Eosinophils % (A) 0 %; HCT 32.1 % (34.0-46.0); Hypochromasia Moderate; Lymphocytes # (A) 3.7 k/uL (1.0-4.8); Lymphocytes % (A) 31 %; MCHC 31.9 g/dL (31.0-37.0); Mean Platelet Volume 6.8; Monocytes % (A) 8 %; Neutrophils % (A) 58 %; Poikilocytosis Slight; RBC 3.79 m/uL (3.80-5.40); RDW 16.1 % (11.5-15.5); WBC 12.1 k/uL (3.8-10.6)
[2019-01-13 19:48] LABS: Partial Thromboplastin Time 26.7 sec (22.0-30.0); Prothrombin Time 10.5 sec (9.0-12.0)
[2019-01-13 19:49] LABS: ALT 27 U/L (9-52); AST 15 U/L (14-36); Albumin 3.4 g/dL (3.5-5.0); Alkaline Phosphatase 102 U/L (38-126); Anion Gap 8 mmol/L; Blood Urea Nitrogen 8 mg/dL (7-17); Calcium 9.4 mg/dL (8.4-10.2); Carbon Dioxide 31 mmol/L (22-30); Chloride 96 mmol/L (98-107); Glucose 207 mg/dL (74-99); Magnesium 1.6 mg/dL (1.6-2.3); Potassium 4.3 mmol/L (3.5-5.1); Sodium 135 mmol/L (137-145); Total Bilirubin 0.4 mg/dL (0.2-1.3)
[2019-01-13 20:00] LABS: HGB 10.2 gm/dL (11.4-16.0); MCV 84.6 fL (80.0-100.0); Platelet Count 285 k/uL (150-450)
--- NOTE | 2019-01-13 20:06 | XR ---
EXAMINATION: XR chest 2V DATE AND TIME: 01/13/2019 7:49 PM CLINICAL INDICATION: dysrhythmia TECHNIQUE: Departmental protocol COMPARISON: 11/17/2018 FINDINGS: Cardiac pacemaker redemonstrated. EKG leads. There is a 6 cm diameter rounded opacity over the right lower lung zone, with a centrally placed 1.5 cm diameter central lucency. This has the appearance of cavitating lung lesion. The vast bulk of the lung parenchyma is clear and well expanded bilaterally. There is no pulmonary ed lovely. The pleural spaces are negative. The cardiac silhouette is borderline enlarged. The remainder of the mediastinal silhouette is unremar kable. The skeletal structures and soft tissues are negative for acute findings. IMPRESSION: RADIOGRAPHIC FINDINGS SUGGEST CAVITATING RIGHT LOWER LUNG ZONE PNEUMONIA.
[2019-01-13 20:14] LABS: Appearance,Urine Clear (Clear); Bacteria,Urine Rare /hpf; Bilirubin,Urine Negative (Negative); Blood,Urine Moderate (Negative); Color,Urine Light Yellow; Glucose,Urine (UA) Trace (Negative); Ketones,Urine Negative (Negative); Leukocyte Esterase,Urine Negative (Negative); Mucus,Urine Rare /hpf; Nitrite,Urine Negative (Negative); Protein,Urine Negative (Negative); RBC,Urine 1 /hpf (0-5); Specific Gravity,Urine 1.007 (1.001-1.035); Squamous Epithelial Cell,Urine 2 /hpf (0-4); Urobilinogen,Urine <2.0 mg/dL (<2.0); WBC,Urine 1 /hpf (0-5)
[2019-01-13] MEDS ORDERED: MAGNESIUM SULFATE-D5W PMX 1 GM in DEXTROSE/WATER 1 100ML.BAG IVPB ONE (20:18)
[2019-01-13] MEDS ORDERED: VANCOMYCIN 1,750 MG in SODIUM CHLORIDE 0.9% 500 ML 500 ML IVPB ONE (20:33)
[2019-01-13] MEDS ORDERED: CEFEPIME 2 GM in SODIUM CHLORIDE 0.9% 100 ML IVPB STA (20:33)
[2019-01-13] MEDS ORDERED: ACETAMINOPHEN TAB 325 MG TAB PO PRN (21:24)
[2019-01-13] MEDS ORDERED: NALOXONE 0.4 MG/ML 1 ML VIAL IV PRN (21:24)
[2019-01-13] MEDS ORDERED: SODIUM CHLORIDE 0.9% 500 ML 500 ML IV ONE (21:26)
[2019-01-13 22:30] LABS: Glucose,Whole Blood 197 mg/dL (75-99)
[2019-01-13] MEDS: traMADol 50 MG TAB PO PRN (22:52)
[2019-01-13] MEDS: INSULIN ASPART (NovoLOG) 100 UNIT/ML VIAL SQ SCH (22:53)
[2019-01-14 06:09] LABS: Glucose,Whole Blood 174 mg/dL (75-99)
[2019-01-14] MEDS: CARVEDILOL 12.5 MG TAB PO SCH ×2 (06:32→17:57)
[2019-01-14 08:15] LABS: Basophils % (A) 0 %; Eosinophils % (A) 0 %; HCT 32.7 % (34.0-46.0); HGB 10.1 gm/dL (11.4-16.0); Hypochromasia Marked; Lymphocytes # (A) 2.4 k/uL (1.0-4.8); Lymphocytes % (A) 30 %; MCH 26.5 pg (25.0-35.0); MCHC 30.9 g/dL (31.0-37.0); MCV 85.8 fL (80.0-100.0); Mean Platelet Volume 6.8; Monocytes # (A) 0.8 k/uL (0-1.0); Monocytes % (A) 10 %; Neutrophils # (A) 4.6 k/uL (1.3-7.7); Neutrophils % (A) 58 %; Platelet Count 259 k/uL (150-450); Poikilocytosis Slight; RBC 3.81 m/uL (3.80-5.40); WBC 7.9 k/uL (3.8-10.6)
[2019-01-14 08:32] LABS: ALT 25 U/L (9-52); AST 15 U/L (14-36); Albumin 3.1 g/dL (3.5-5.0); Alkaline Phosphatase 97 U/L (38-126); Anion Gap 6 mmol/L; Blood Urea Nitrogen 8 mg/dL (7-17); Carbon Dioxide 27 mmol/L (22-30); Chloride 104 mmol/L (98-107); Glucose 170 mg/dL (74-99); Magnesium 1.8 mg/dL (1.6-2.3); Potassium 4.1 mmol/L (3.5-5.1); Sodium 137 mmol/L (137-145); Total Bilirubin 0.4 mg/dL (0.2-1.3); Total Protein 6.5 g/dL (6.3-8.2)
[2019-01-14] MEDS: INSULIN DETEMIR (LEVEMIR) 100 UNIT/ML SYR SQ SCH (09:27)
[2019-01-14] MEDS: traMADol 50 MG TAB PO PRN ×2 (09:27→20:40)
[2019-01-14] MEDS: SPIRONOLACTONE 25 MG TAB PO SCH (09:28)
[2019-01-14] MEDS: APIXABAN 5 MG TAB PO SCH ×2 (09:28→20:41)
[2019-01-14] MEDS: LISINOPRIL 10 MG TAB PO SCH (09:28)
[2019-01-14] MEDS: INSULIN ASPART (NovoLOG) 100 UNIT/ML VIAL SQ SCH ×3 (09:37→22:54)
[2019-01-14 12:29] LABS: Glucose,Whole Blood 219 mg/dL (75-99)
--- NOTE | 2019-01-14 14:20 | P.CRDCN ---
History of Present Illness History of present illness: This is a pleasant 43-year-old female past medical history significant for non-ischemic dilated cardiomyopathy s/p AICD placement, DIC, PE, DVT, hypertension, dyslipidemia and chronic nicotine dependence. She follows in the office with Dr. Ward. We have been asked to see her in consultation for tachycardia that has been ongoing since November. She saw Dr. Ward in the office 01/05/2019 and he placed her on a 24-hr holter monitor that revealed sinus mechanism with some episodes of sinus tachycardia. She presented to the ER with symptoms of increased fatigue, shortness of breath and ongoing tachycardia. Heart rates have been running from the mid 90's to 110 at times. Chest xray on admission reveals a cavitating pneumonia in the right mid-lung. She has been started on antibiotics. She is seen and examined laying flat in bed in no acute distress. She denies chest pain, shortness of breath or dizziness. She continues to feel her heart racing. Currently maintained on carvedilol 25 mg twice a day, lisinopril 10 mg daily, Aldactone 25 mg daily, Eliquis 5 mg twice a day. EKG reveals sinus tachycardia heart rate of 105 with non-specific ST abnormalities. Laboratory data reviewed, WBC on admission 12.1 repeat today 7.9, hemoglobin 10.1, platelets 259, sodium 137, potassium 4.1, creatinine 0.47,cardiac enzymes negative 1, and T proBNP 76. She underwent cardiac catheterization November 2017 revealing normal coronary arteries. Most recent echocardiogramobtained in the o ice February 2018 reveals normal LV size with severely decreased function, ejection fraction 25%, abnormal trileaflet aortic valve, mild mitral regurgitation, mild tricuspid regurgitation and myxomatous mitral valve. At the time of my exam: CONSTITUTIONAL: Denies fever. Denies chills. EYES: Denies blurred vision. Denies vision changes. Denies eye pain. EARS, NOSE, MOUTH & THROAT: Denies headache. Denies sore throat. Denies ear pain. CARDIOVASCULAR: Denies chest pain. Denies shortness of breath. Denies orthopnea. Denies PND. Complains of palpitations. RESPIRATORY: Denies cough. GASTROINTESTINAL: Denies abdominal pain. Denies diarrhea. Denies constipation. Denies nausea. Denies vomiting. MUSCULOSKELETAL: Denies myalgias. INTEGUMENTARY: Denies pruitis. Denies rash. NEUROLOGIC: Denies numbness. Denies tingling. Denies weakness. PSYCHIATRIC: Denies anxiety. Denies depression. ENDOCRINE: Denies fatigue. Denies weight change. Denies polydipsia. Denies polyurina. GENITOURINARY: Denies burning, hematuria or urgency with micturation. HEMATOLOGIC: Denies history of anemia. Denies bleeding. Blood pressure 95/61 heart rate 101 afebrile maintaining oxygen saturation on room air GENERAL: This is a 43-year-old female in no apparent distress at the time of my examination. HEENT: Head is atraumatic, normocephalic. Pupils are equal, round. Sclerae anicteric. Conjunctivae are clear. Mucous membranes of the mouth are moist. Neck is supple. There is no jugular venous distention. No carotid bruit is heard. LUNGS: Faint rhonchi noted to the right mid-lobe, clear on the left. No wheezes or rales throughout. No chest wall tenderness is noted on palpation or with deep breathing. HEART: Regular rate and rhythm without murmurs, rubs or gallops. S1 and S2 heard. ABDOMEN: Soft, nontender. Bowel sounds are heard. No organomegaly noted. EXTREMITIES: No evidence of peripheral edema and no calf tenderness noted. VASCULAR: Radial and dorsalis pedis pulses palpated. NEUROLOGIC: Patient is awake, alert and oriented x3. ASSESSMENT Sinus tachycardia Dilated cardiomyopathy s/p AICD placement Hypertension Dyslipidemia History of DIC recently treated at [facility] Recent history of DVT and PE 11/2018 maintained on assisted anticoagulation Chronic nicotine dependence. PLAN Obtain CT of the chest to further assess the possibility of cavitating pneumonia as well as recent history of PE. Tachycardia is sinus and therefore the underlying cause must be determined. Possibly related to underlying infectious process given the leukocytosis and chest xray. Continue current cardiac medications as previously ordered. Smoking cessation recommended. Thank you kindly for this consultation. Nurse Practitioner note has been reviewed, I agree with a documented findings and plan of care. Patient was seen and examined. Past Medical History Past Medical History: Diabetes Mellitus, Hyperlipidemia, Hypertension, Skin Disorder, Sleep Apnea/CPAP/BIPAP Additional Past Medical History / Comment(s): Gets cysts, boil left outer thigh, - resolved. Back pain-currently waiting to have back surgery - Fusion L4-L5. "Weak and enlarged heart." CPAP use, IBS, nerve pain in right leg, occasionally in left leg. History of Any Multi-Drug Resistant Organisms: None Reported Past Surgical History: AICD, Back Surgery, Heart Catheterization, Pacemaker Additional Past Surgical History / Comment(s): Tubes brandie ears, right ear surgery, removal of cyst from ovaries. Past Anesthesia/Blood Transfusion Reactions: No Reported Reaction Type of Cardiac Device: AICD Device Placement Date:: 2017 Past Psychological History: Anxiety, Depression Smoking Status: Former smoker Past Alcohol Use History: Occasional Additional Past Alcohol Use History / Comment(s): Started smoking at age 22, 1PPD. Past Drug Use History: None Reported - Past Family History Mother Family Medical History: Cancer Additional Family Medical History / Comment(s): melanoma Medications and Allergies Home Medications Medication Instructions Recorded Confirmed Type Desvenlafaxine [Pristiq ER] 100 mg PO DAILY 09/12/17 01/13/19 History Lisinopril [Zestril] 10 mg PO DAILY 04/07/18 01/13/19 History Carvedilol [Coreg] 25 mg PO BID 11/17/18 01/13/19 History Spironolactone [Aldactone] 25 mg PO DAILY 11/17/18 01/13/19 History busPIRone HCl [Buspar] 10 mg PO BID 11/17/18 01/13/19 History Apixaban [Eliquis] 5 mg PO BID 01/13/19 01/13/19 History Buprenorphine HCl [Belbuca] 150 mcg BUCCAL Q12H 01/13/19 01/13/19 History Cholecalciferol [Vitamin D3] 400 unit PO DAILY 01/13/19 01/13/19 History INSULIN LISPRO (HumaLOG) [HumaLOG] 10 unit SQ TID 01/13/19 01/13/19 History Insulin Glargine [Lantus] 40 unit SQ DAILY 01/13/19 01/13/19 History Semaglutide [Ozempic] 0.5 mg SQ MO 01/13/19 01/13/19 History traMADol HCL [Ultram] 50 mg PO BID PRN 01/13/19 01/13/19 History Allergies Allergy/AdvReac Type Severity Reaction Status Date / Time No Known Allergies Allergy Verified 01/13/19 19:27 Physical Exam Vitals: Vital Signs Temp Pulse Pulse Resp BP BP Pulse Ox 01/14/19 08:00 98 18 95/54 97 01/14/19 03:07 97.6 F 109 H 18 105/57 93 L 01/14/19 00:00 97.0 F L 108 H 17 106/58 97 01/13/19 21:59 97.4 F L 109 H 18 120/58 96 01/13/19 21:53 111 H 16 98/52 100 01/13/19 20:01 111 H 16 116/68 100 01/13/19 18:38 98.6 F 109 H 18 104/63 100 Intake and Output 01/13/19 01/14/19 01/14/19 22:59 06:59 14:59 Intake Total 600 280 Balance 600 280 Intake: Intake, IV Titration 600 Amount Cefepime 2 gm In Sodium 100 Chloride 0.9% 100 ml @ 200 mls/hr IVPB ONCE STA Rx#:[id number] Vancomycin 1,750 mg In 500 Sodium Chloride 0.9% 500 ml 500 ml @ 166.667 mls/ hr IVPB ONCE ONE Rx#: [id number] Oral 280 Other: Voiding Method Toilet # Voids 1 1 Weight 86.183 kg 86.3 kg Results 01/14/19 07:56 01/14/19 07:56 Cardiac Enzymes 01/13/19 01/13/19 01/14/19 Range/Units 19:24 19:24 07:56 AST 15 15 (14-36) U/L Troponin I <0.012 (0.000-0.034) ng/mL Coagulation 01/13/19 Range/Units 19:24 PT 10.5 (9.0-12.0) sec APTT 26.7 (22.0-30.0) sec CBC 01/13/19 01/14/19 Range/Units 19:24 07:56 WBC 12.1 H 7.9 (3.8-10.6) k/uL RBC 3.79 L 3.81 (3.80-5.40) m/uL Hgb 10.2 L D 10.1 L (11.4-16.0) gm/dL Hct 32.1 L 32.7 L (34.0-46.0) % Plt Count 285 D 259 (150-450) k/uL Comprehensive Metabolic Panel 01/13/19 01/14/19 Range/Units 19:24 07:56 Sodium 135 L 137 (137-145) mmol/L Potassium 4.3 4.1 (3.5-5.1) mmol/L Chloride 96 L 104 (98-107) mmol/L Carbon Dioxide 31 H 27 (22-30) mmol/L BUN 8 8 (7-17) mg/dL Creatinine 0.57 0.47 L (0.52-1.04) mg/dL Glucose 207 H 170 H (74-99) mg/dL Calcium 9.4 9.0 (8.4-10.2) mg/dL AST 15 15 (14-36) U/L ALT 27 25 (9-52) U/L Alkaline Phosphatase 102 97 (38-126) U/L Total Protein 7.0 6.5 (6.3-8.2) g/dL Albumin 3.4 L 3.1 L (3.5-5.0) g/dL Current Medications Generic Name Dose Route Start Last Admin Trade Name Freq PRN Reason Stop Dose Admin Acetaminophen 650 mg 01/13/19 21:24 Tylenol Tab PO Q6HR PRN Mild Pain or Fever > 100.5 Apixaban 5 mg 01/14/19 09:00 01/14/19 09:28 Eliquis PO 5 mg BID [facility] Administration Carvedilol 25 mg 01/14/19 07:30 01/14/19 06:32 Coreg PO 25 mg BID-W/MEALS AURELIA Administration Insulin Aspart 10 unit 01/13/19 22:00 01/14/19 09:37 Novolog SQ Not Given TID [facility] Insulin Detemir 40 unit 01/14/19 09:00 01/14/19 09:27 Levemir SQ 40 unit DAILY AURELIA Administration Lisinopril 10 mg 01/14/19 09:00 01/14/19 09:28 Zestril PO 10 mg DAILY AURELIA Administration Naloxone HCl 0.2 mg 01/13/19 21:24 Narcan IV Q2M PRN Opioid Reversal Spironolactone 25 mg 01/14/19 09:00 01/14/19 09:28 Aldactone PO 25 mg DAILY AURELIA Administration Tramadol HCl 50 mg 01/13/19 21:25 01/14/19 09:27 Ultram PO 50 mg BID PRN Administration Pain Intake and Output 01/13/19 01/14/19 01/14/19 22:59 06:59 14:59 Intake Total 600 280 Balance 600 280 Intake: Intake, IV Titration 600 Amount Cefepime 2 gm In Sodium 100 Chloride 0.9% 100 ml @ 200 mls/hr IVPB ONCE STA Rx#:[id number] Vancomycin 1,750 mg In 500 Sodium Chloride 0.9% 500 ml 500 ml @ 166.667 mls/ hr IVPB ONCE ONE Rx#: [id number] Oral 280 Other: Voiding Method Toilet # Voids 1 1 Weight 86.183 kg 86.3 kg 01/14/19 07:56 01/14/19 07:56
--- NOTE | 2019-01-14 15:16 | CT ---
EXAMINATION TYPE: CT chest wo con DATE OF EXAM: 01/14/2019 COMPARISON: NONE HISTORY: Recent PE. Cavitating pneumonia rt lobe. Order was clarified by RN w/ordering physician for a w/out study CT DLP: 365.1 mGycm. Automated Exposure Control for Dose Reduction was Utilized. TECHNIQUE: CT scan of the thorax is performed without IV contrast. FINDINGS: LUNGS: There are multiple cavitary lesions within the right lung. Groundglass opacities are seen at t he right lung apices and dependent atelectasis is seen at the lung bases. In the right upper lobe the re is a solid opacity measuring 1.9 x 2.5 cm on image 32. In the right lower lobe there are 3 cavitat ing nodules measuring 2.0 cm, 1.6 cm in 2.0 cm in longest dimension from lateral to medial. These are marked on image 38. These elongates into a right basilar consolidation inferiorly. No cavitating lef t masses are seen. MEDIASTINUM: Lack of IV contrast is noted to limit evaluation for mediastinal and especially hilar ad enopathy. Cardiac device is seen within the left anterior chest wall subcutaneous tissues. Azygoesoph ageal recess adenopathy measures up to 1.2 cm. Subcarinal adenopathy measures up to 1.3 cm. Right par atracheal adenopathy measures up to 1.0 cm. No cardiomegaly or pericardial effusion is seen. OTHER: Splenule is noted adjacent to the tribe spleen. Right sided hydronephrosis is partially visua lized. IMPRESSION: 1. Multiple cavitary right pulmonary nodules in the upper lobe and lower lobe could be sequela of cav itary pneumonia although septic emboli should also be considered. Adjacent right basilar airspace dis ease may represent atelectasis and/or pneumonia, suboptimally evaluated without contrast. 2. Mild mediastinal adenopathy is likely reactive.
[2019-01-14 17:26] LABS: Glucose,Whole Blood 133 mg/dL (75-99)
--- NOTE | 2019-01-14 19:58 | HP ---
HISTORY AND PHYSICAL DATE OF ADMISSION: January 13, 2019. DATE OF SERVICE: January 14, 2019. PRESENTING COMPLAINT: Heart racing. HISTORY OF PRESENTING COMPLAINT: This is a 43-year-old patient of Dr. Richards whose chronic stable medical conditions include diabetes, hypertension, hyperlipidemia, obstructive sleep apnea, irritable bowel syndrome, anxiety, depression. The patient recently underwent lower back surgery at [facility], starting to get physical therapy but the heart rate went up. He could not get the therapy. The patient does follow with Dr. Silvestre Ward, mathematical sciences professor in [facility]. Recently had a 24 hour monitor. Do not know the results, but she was told to come in. With increased heart rate, she gets dizzy. The patient does have an AICD that was placed by Dr. Flores. The last time it was checked was in October. Otherwise, patient's appetite is fair. No fever. No chills. REVIEW OF SYSTEMS: CONSTITUTIONAL: A bit tired. HEENT none. RESPIRATORY: Minimal cough. CARDIOVASCULAR: As above. : GASTROINTESTINAL: None. GENITOURINARY none MUSCULOSKELETAL: Some back pain. DERMATOLOGICAL: None. HEMATOLOGICAL: None. LYMPHATICS: None. PSYCHIATRY: Anxiety, depression, controlled. NEUROLOGICAL: None. PAST MEDICAL HISTORY: Diabetes mellitus type 2, hypertension, hyperlipidemia, obstructive sleep apnea, back pain with surgery, irritable bowel syndrome, anxiety, depression. PAST SURGICAL HISTORY: AICD, back surgery, tubes bilateral, right ear surgery, AICD in 2018. PSYCH HISTORY: Anxiety and depression. SOCIAL HISTORY: Smoked a pack a day for 21 years. Stopped in November of this year. Alcohol occasionally. . FAMILY HISTORY: Of cancer. HOME MEDICATIONS: 1. Ultram 50 mg p.o. b.i.d. p.r.n. 2. 0.5 subcu on Wednesday. 3. Humalog 10 units subcu t.i.d. 4. 150 mcg q.12h. 5. Insulin Lantus 40 units subcu daily. 6. Eliquis 5 mg p.o. b.i.d. 7. Buspar 10 mg p.o. b.i.d. 8. Aldactone 25 mg p.o. daily. 9. Zestril 10 mg p.o. daily. 10.Pristiq ER 100 mg p.o. daily. 11.Coreg 25 mg p.o. b.i.d. 12.Vitamin D3 400 units p.o. daily. ALLERGIES: None. PHYSICAL EXAMINATION: VITAL SIGNS: Vital signs on presentation: Temperature 98.6, pulse 109, respiratory 18, blood pressure 104/63, pulse ox 100 percent on room air. GENERAL APPEARANCE: Average built, sitting up, awake. EYES: Pupils equal. Conjunctivae normal. HEENT: External appearance of nose and ears normal. Oral cavity normal. NECK: JVD not raised. Mass not palpable. RESPIRATORY: Effort normal. LUNGS: Fair air entry. CARDIOVASCULAR: 1st and 2nd sounds normal. No edema. ABDOMEN: Soft, nontender. Liver and spleen not palpable. LYMPHATICS: No lymph nodes palpable in the neck and axilla. PSYCHIATRY: Alert and oriented x3. Mood and affect normal. NEUROLOGICAL: Pupils equal. Cranial nerves grossly intact. Power and sensation grossly intact. INVESTIGATIONS: White count 7.9, hemoglobin 10.1. Potassium 4.1. BUN 8, creatinine 0.47. Accu-Cheks 170, 219. White count on presentation was 12.1. Studies in the context of the clinical course. EKG tracing personally reviewed by me shows sinus tachycardia, some nonspecific changes in the inferior leads, including some ST-segment depression. Chest x-ray film personally reviewed by me shows questionable borderline cardiomegaly, some shadowing on the right base. CT scan of the chest multiple cavitary lesion in the right lung. Multiple other findings. ASSESSMENT: 1. Sinus tachycardia, symptomatic. Patient becoming dizzy, recently had a [address] Silvestre Ward. Has an AICD in place that was checked in October. Admitted for the same. 2. Multiple cavitary cavity on the chest. The patient is really asymptomatic whenever Pulmonary reviews the case and also get an ID opinion. 3. Diabetes mellitus type 2, chronically on insulin. 4. Hyperlipidemia. 5. Essential hypertension. 6. Obstructive sleep apnea uses CPAP. 7. Anxiety and depression, not otherwise specified. 8. Irritable bowel syndrome. 9. Recent lumbar surgery done at [place]. PLAN: Home medications will be continued. Consultation made to Cardiology, ID and pulmonary. Care was discussed with the patient and family. Follow from there. MMODL / IJN: [id number] /
[2019-01-14] MEDS: busPIRone HCl 10 MG TAB PO SCH (20:40)
[2019-01-14] MEDS: DESVENLAFAXINE SUCCINATE 50 MG TAB.ER.24H PO SCH (20:41)
[2019-01-14 22:54] LABS: Glucose,Whole Blood 217 mg/dL (75-99)
[2019-01-15] MEDS: BUPRENORPHINE HCL 150 MCG BUCCAL SCH ×3 (01:42→22:49)
[2019-01-15 06:15] LABS: Glucose,Whole Blood 184 mg/dL (75-99)
[2019-01-15] MEDS: CARVEDILOL 12.5 MG TAB PO SCH ×2 (06:52→18:00)
[2019-01-15] MEDS: busPIRone HCl 10 MG TAB PO SCH ×2 (08:46→22:47)
[2019-01-15] MEDS: INSULIN ASPART (NovoLOG) 100 UNIT/ML VIAL SQ SCH ×3 (08:46→22:49)
[2019-01-15] MEDS: SPIRONOLACTONE 25 MG TAB PO SCH (08:46)
[2019-01-15] MEDS: DESVENLAFAXINE SUCCINATE 50 MG TAB.ER.24H PO SCH (08:46)
[2019-01-15] MEDS: LISINOPRIL 10 MG TAB PO SCH (08:46)
[2019-01-15] MEDS: APIXABAN 5 MG TAB PO SCH ×2 (08:46→22:47)
[2019-01-15] MEDS: INSULIN DETEMIR (LEVEMIR) 100 UNIT/ML SYR SQ SCH (10:22)
[2019-01-15 11:21] LABS: Glucose,Whole Blood 185 mg/dL (75-99)
[2019-01-15 16:26] LABS: Glucose,Whole Blood 148 mg/dL (75-99)
--- NOTE | 2019-01-15 17:53 | PN ---
PROGRESS NOTE DATE OF SERVICE: January 1511 16. PRESENTING COMPLAINT: Tired. INTERVAL HISTORY: This is a patient presented with dizziness, tachycardia, felt to be sinus tachycardia. The patient has dilated cardiomyopathy with AICD. Had a recent lumbar surgery done at [facility], also on anticoagulation for DVT and PE. We will be awaiting further input from Infectious Disease and Pulmonary. Otherwise, patient is lying in bed, a bit tired. No fever. No chills. REVIEW OF SYSTEMS: Done for constitutional, cardiovascular, GI, pulmonary; relevant findings as above. CURRENT MEDICATIONS: Reviewed and include Eliquis. PHYSICAL EXAMINATION: VITAL SIGNS: Temperature 99, pulse 95, respiratory 18, blood pressure 97/59, pulse 91 percent on room. GENERAL APPEARANCE: Lying in bed a bit tired-appearing. EYES: Pupils are equal. Conjunctivae normal. NECK: JVD not raised. Mass not palpable. Respiratory effort normal. LUNGS: Diminished breath sounds. CARDIOVASCULAR: 1st and 2nd heart sounds normal. No edema. ABDOMEN: Soft, nontender. Liver and spleen not palpable. PSYCHIATRY: Alert and oriented x3. Mood and affect normal. INVESTIGATIONS: White count 7.9, hemoglobin 10.1, potassium 4.1, BUN 8, creatinine 0.47. ASSESSMENTS: 1. Sinus tachycardia underlying cause currently unknown. 2. Dilated cardiomyopathy with AICD in place. 3. Multiple cavities on the chest. Awaiting input from ID and Pulmonary. 4. Diabetes mellitus type 2, chronically on insulin. 5. Hyperlipidemia. 6. Essential hypertension. 7. Obstructive sleep apnea uses CPAP. 8. Anxiety and depression, not otherwise specified. 9. Irritable bowel syndrome. 10.Recent lumbar surgery done at [facility]. 11.Possibly deep vein thrombosis and pulmonary embolism for which patient is on Eliquis. PLAN: Continue medication and treatment plan. Await input from Pulmonary and ID. Care was discussed with the patient. Follow from there. MMODL / IJN: [id number] /
[2019-01-15 20:33] LABS: Glucose,Whole Blood 162 mg/dL (75-99)
[2019-01-15] MEDS: traMADol 50 MG TAB PO PRN (22:46)
[2019-01-15] MEDS ORDERED: VANCOMYCIN IV PER PHARMACY 1 EACH MISC MISCELLANE PRN (23:32)
[2019-01-16 03:31] VITALS: RESP 18
[2019-01-16] MEDS: VANCOMYCIN 1,500 MG in SODIUM CHLORIDE 0.9% 250 ML IVPB SCH ×3 (04:05→18:06)
[2019-01-16] MEDS: CEFEPIME 2 GM in SODIUM CHLORIDE 0.9% 100 ML IVPB SCH ×3 (05:41→23:47)
[2019-01-16 06:02] LABS: Glucose,Whole Blood 135 mg/dL (75-99)
--- NOTE | 2019-01-16 06:18 | CONS ---
CONSULTATION DATE OF SERVICE: 01/15/2019 REASON FOR CONSULTATION: Cavitary pneumonia. HISTORY OF PRESENT ILLNESS: The patient is a 43-year-old female presenting to the ER at [facility] with chief complaints of palpitation. The patient's symptoms has been going on for a few days to a week. The patient denies significant chest pain. She has some shortness of breath, but no cough. No nausea, no vomiting. No URI symptoms. No abdominal pain. No diarrhea. Denies any high-grade fever or rigors or chills. The patient did have history of underlying cardiomyopathy with AICD placement. With these symptoms, the patient has been evaluated by the ER physician. On arrival to the ER, the patient did have a heart rate of 109 to 111. However, no fever was not recorded. Patient did have mildly elevated white count 12.1, repeat is 7.9 today. Patient UA was negative. The patient did have a chest x-ray completed which shows cavitating right lower lobe pneumonia. A CT of the chest was completed, which shows multiple cavitary right pulmonary nodules in the upper and lower lobes sequela to cavitary pneumonia or septic emboli. Infectious Disease was consulted for further recommendation regarding antibiotic therapy. The patient currently denies any abdominal pain. No nausea, no vomiting. No and no diarrhea. REVIEW OF SYSTEMS: Positive points have been mentioned in HPI. Rest of of the 14 systems has been negative. PAST MEDICAL HISTORY: Hypertension, hyperlipidemia, diabetes mellitus, sleep apnea, cardiomyopathy. PAST SURGICAL HISTORY: Boil left thigh, fusion L4-L5, AICD placement, heart catheterization. SOCIAL HISTORY: smoker. Occasional drinks. No drug use. FAMILY HISTORY: Mother with history of melanoma 1. ALLERGIES: No known drug allergies. MEDICATIONS: Medications include the patient is currently on Tylenol, Eliquis, BuSpar, Coreg, NovoLog, Levemir, Zestril, Narcan, Aldactone, Ultram. PHYSICAL EXAMINATION: On examination, her blood pressure is 103/63 with a pulse of 98, temperature 98.6. She is 95% on room air. General description is a middle aged female lying in bed in no distress. No tachypnea or accessory muscle of respiration use. HEENT examination shows slight pallor, no scleral icterus. Oral mucous membrane is dry. No pharyngeal erythema or thrush. NECK: Trachea central. No thyromegaly. LUNGS: Unlabored breathing, clear to auscultation. No wheeze or crackle. HEART: S1, S2. Regular rate and rhythm. ABDOMEN: Soft, no tenderness. No guarding or rigidity. EXTREMITIES: No edema of feet. SKIN EXAMINATION: No rashes or mass palpable. NEUROLOGICAL: Patient is awake, alert, oriented x3. Mood and affect normal. LABS: Hemoglobin is stable. White count 7.9 on admission was 12.1. BUN of 8, creatinine 0.47. Liver enzymes are normal. Chest x-ray and CT of chest as mentioned above. DIAGNOSTIC IMPRESSION AND PLAN: Patient presented to hospital predominantly with palpitation in this patient who had some shortness of breath, but no significant chest pain or cough in this patient who did have significant abnormality seen on the chest x-ray as well as CT with question of possible primary pneumonia versus septic emboli. However, the patient clinically not behaving as septic emboli with no fever or significantly elevated white count and does not look toxic. PLAN: 1. Blood cultures x2 stat. 2. Will try to obtain sputum for Gram stain and culture. 3. Will obtain echocardiogram to make sure no evidence of any vegetation. 4. Will start the patient empirically on vancomycin pharmacy to dose and cefepime 2 grams q.12 hours. 5. We will follow up on clinical condition as well to further adjust medication if needed. Thank you for this consultation. Will follow this patient along with you. MMKVNGL / IJN: [id number] /
[2019-01-16] MEDS: CARVEDILOL 12.5 MG TAB PO SCH ×2 (06:40→18:06)
[2019-01-16] MEDS: BUPRENORPHINE HCL 150 MCG BUCCAL SCH ×2 (08:59→20:36)
[2019-01-16] MEDS: busPIRone HCl 10 MG TAB PO SCH ×2 (09:11→20:41)
[2019-01-16] MEDS: DESVENLAFAXINE SUCCINATE 50 MG TAB.ER.24H PO SCH (09:11)
[2019-01-16] MEDS: APIXABAN 5 MG TAB PO SCH (09:11)
[2019-01-16] MEDS: LISINOPRIL 10 MG TAB PO SCH (09:12)
[2019-01-16] MEDS: SPIRONOLACTONE 25 MG TAB PO SCH (09:12)
[2019-01-16] MEDS: INSULIN DETEMIR (LEVEMIR) 100 UNIT/ML SYR SQ SCH (09:13)
[2019-01-16] MEDS: INSULIN ASPART (NovoLOG) 100 UNIT/ML VIAL SQ SCH ×3 (09:23→20:41)
[2019-01-16 10:20] LABS: Anion Gap 10 mmol/L; Blood Urea Nitrogen 10 mg/dL (7-17); Calcium 9.5 mg/dL (8.4-10.2); Carbon Dioxide 26 mmol/L (22-30); Chloride 101 mmol/L (98-107); Glucose 145 mg/dL (74-99); Potassium 4.2 mmol/L (3.5-5.1); Sodium 137 mmol/L (137-145)
--- NOTE | 2019-01-16 10:47 | P.CNPUL ---
History of Present Illness Consult date: 01/15/19 Reason for consult: dyspnea, pneumonia Chief complaint: Palpitation and shortness of breath History of present illness: 43-year-old female with a history of non-ischemic cardiomyopathy status post AICD performed a year ago, patient has not been sick for almost a month to month and a half with intermittent palpitation and tachycardia she follows Dr. siu for primary care activity also follows Dr. 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 and was treated with IgG infusion and plasmapheresis the hospital course was complicated with thrombosis as well as pulmonary embolism has been on long-term anticoagulation with oral anticoagulants, patient has been admitted to hospital with ongoing palpitation and feeling of heart beat a computed tomography scan of the chest performed revealed dense rounded scattered infiltrate in the basal one appeared to have some development of necrosis and cavitation I was asked to evaluate this patient further, patient denies any hemoptysis does have night sweats but denies any chills or fever denies any significant weight loss in the last several months, patient is a smoker and has been smoking over a pack a day quit several months ago, currently her labs are fairly unremarkable except for borderline hyperglycemia elevated sed rate and C-reactive protein, urinalysis has not been performed with the renal functions are normal Review of Systems All systems: negative Past Medical History Past Medical History: Diabetes Mellitus, Hyperlipidemia, Hypertension, Skin Disorder, Sleep Apnea/CPAP/BIPAP Additional Past Medical History / Comment(s): Gets cysts, boil left outer thigh, - resolved. Back pain-currently waiting to have back surgery - Fusion L4-L5. "Weak and enlarged heart." CPAP use, IBS, nerve pain in right leg, occasionally in left leg. History of Any Multi-Drug Resistant Organisms: None Reported Past Surgical History: AICD, Back Surgery, Heart Catheterization, Pacemaker Additional Past Surgical History / Comment(s): Tubes brandie ears, right ear surgery, removal of cyst from ovaries. Past Anesthesia/Blood Transfusion Reactions: No Reported Reaction Type of Cardiac Device: AICD Device Placement Date:: 2017 Past Psychological History: Anxiety, Depression Smoking Status: Former smoker Past Alcohol Use History: Occasional Additional Past Alcohol Use History / Comment(s): Started smoking at age 22, 1PPD. Past Drug Use History: None Reported - Past Family History Mother Family Medical History: Cancer Additional Family Medical History / Comment(s): melanoma Medications and Allergies Home Medications Medication Instructions Recorded Confirmed Type Desvenlafaxine [Pristiq ER] 100 mg PO DAILY 09/12/17 01/13/19 History Lisinopril [Zestril] 10 mg PO DAILY 04/07/18 01/13/19 History Carvedilol [Coreg] 25 mg PO BID 11/17/18 01/13/19 History Spironolactone [Aldactone] 25 mg PO DAILY 11/17/18 01/13/19 History busPIRone HCl [Buspar] 10 mg PO BID 11/17/18 01/13/19 History Apixaban [Eliquis] 5 mg PO BID 01/13/19 01/13/19 History Buprenorphine HCl [Belbuca] 150 mcg BUCCAL Q12H 01/13/19 01/13/19 History Cholecalciferol [Vitamin D3] 400 unit PO DAILY 01/13/19 01/13/19 History INSULIN LISPRO (HumaLOG) [HumaLOG] 10 unit SQ TID 01/13/19 01/13/19 History Insulin Glargine [Lantus] 40 unit SQ DAILY 01/13/19 01/13/19 History Semaglutide [Ozempic] 0.5 mg SQ MO 01/13/19 01/13/19 History traMADol HCL [Ultram] 50 mg PO BID PRN 01/13/19 01/13/19 History Allergies Allergy/AdvReac Type Severity Reaction Status Date / Time No Known Allergies Allergy Verified 01/13/19 19:27 Physical Exam Vitals: Vital Signs Temp Pulse Resp BP Pulse Ox 01/16/19 04:00 98.2 F 92 18 90/48 94 L 01/16/19 00:00 98.7 F 100 18 90/51 95 01/15/19 20:00 98.6 F 95 16 89/47 96 01/15/19 16:00 98.6 F 98 16 103/63 95 01/15/19 12:00 90 12 95/52 93 L Intake and Output 01/15/19 01/16/19 01/16/19 22:59 06:59 14:59 Intake Total 240 240 Balance 240 240 Intake: Oral 240 240 Other: Voiding Method Toilet Toilet # Voids 1 1 Weight 84.6 kg - Constitutional General appearance: average body habitus, cooperative, disheveled, mild distress, obese - EENT Eyes: anicteric sclerae, EOMI, PERRLA, poor dentition, normal appearance Ears: bilateral: normal - Neck Neck: normal ROM Carotids: bilateral: upstroke normal - Respiratory Respiratory: bilateral: CTA - Cardiovascular Rhythm: regular Heart sounds: normal: S1, S2 - Gastrointestinal General gastrointestinal: normal bowel sounds - Integumentary Integumentary: decreased turgor, normal - Neurologic Neurologic: CNII-XII intact - Musculoskeletal Musculoskeletal: gait normal, generalized weakness, strength equal bilaterally - Psychiatric Psychiatric: A&O x's 3, appropriate affect, intact judgment & insight Results - Laboratory Findings CBC and BMP: 01/14/19 07:56 01/16/19 09:43 PT/INR, D-dimer PT 10.5 sec (9.0-12.0) 01/13/19 19:24 INR 1.0 (<1.2) 01/13/19 19:24 Abnormal lab findings: Abnormal Labs 01/13/19 01/13/19 01/13/19 19:24 19:24 19:50 WBC 12.1 H RBC 3.79 L Hgb 10.2 L D Hct 32.1 L MCHC RDW 16.1 H ESR Sodium 135 L Chloride 96 L Carbon Dioxide 31 H Creatinine Glucose 207 H POC Glucose (mg/dL) C-Reactive Protein Albumin 3.4 L Urine Glucose (UA) Trace H Urine Blood Moderate H Urine Bacteria Rare H Urine Mucus Rare H 01/13/19 01/14/19 01/14/19 22:29 06:08 07:56 WBC RBC Hgb 10.1 L Hct 32.7 L MCHC 30.9 L RDW 16.0 H ESR Sodium Chloride Carbon Dioxide Creatinine Glucose POC Glucose (mg/dL) 197 H 174 H C-Reactive Protein Albumin Urine Glucose (UA) Urine Blood Urine Bacteria Urine Mucus 01/14/19 01/14/19 01/14/19 07:56 11:46 17:22 WBC RBC Hgb Hct MCHC RDW ESR Sodium Chloride Carbon Dioxide Creatinine 0.47 L Glucose 170 H POC Glucose (mg/dL) 219 H 133 H C-Reactive Protein Albumin 3.1 L Urine Glucose (UA) Urine Blood Urine Bacteria Urine Mucus 01/14/19 01/15/1919 22:52 00:00 00:00 WBC RBC Hgb Hct MCHC RDW ESR 83 H Sodium Chloride Carbon Dioxide Creatinine Glucose POC Glucose (mg/dL) 217 H C-Reactive Protein 52.2 H Albumin Urine Glucose (UA) Urine Blood Urine Bacteria Urine Mucus 01/15/19 01/15/19 01/15/19 06:10 11:18 16:20 WBC RBC Hgb Hct MCHC RDW ESR Sodium Chloride Carbon Dioxide Creatinine Glucose POC Glucose (mg/dL) 184 H 185 H 148 H C-Reactive Protein Albumin Urine Glucose (UA) Urine Blood Urine Bacteria Urine Mucus 01/15/19 01/16/19 01/16/19 20:31 06:01 09:43 WBC RBC Hgb Hct MCHC RDW ESR Sodium Chloride Carbon Dioxide Creatinine 0.47 L Glucose 145 H POC Glucose (mg/dL) 162 H 135 H C-Reactive Protein Albumin Urine Glucose (UA) Urine Blood Urine Bacteria Urine Mucus - Diagnostic Findings Chest x-ray: report reviewed, image reviewed CT scan - chest: report reviewed, image reviewed (Finding as noted above) Assessment and Plan Assessment: Dense alveolar infiltrate rounded nodular appearance likely pneumonia infectious versus noninfectious versus neoplastic Palpitation and tachycardia Nonischemic cardiomyopathy status post AICD History of recent DVT PE/DIC TTP requiring plasmapheresis and immunoglobulin infusion with normalization of renal functions as well as Plan: Continue broad-spectrum antibiotics will review the computed tomography scan We'll review the old record records Patient will need a bronchoscopy with BAL as initial step given that patient is on anticoagulation not a candidate for biopsy Time with Patient: Greater than 30
--- NOTE | 2019-01-16 10:52 | P.PN ---
Subjective Progress Note Date: 01/16/19 Principal diagnosis: Bilateral pneumonia necrotizing, non-infectious pneumonia, palpitation, nonischemic cardiomyopathy, history of recent DVT PE TTP status post plasmapheresis and immunoglobulin infusion 01/16/2019, patient seen and evaluated examined during the rounds overall no significant change compared to yesterday is still of ongoing cough denies any sputum production does get some shortness of breath on activity and exertion, patient has been evaluated by cardiovascular services, continue to be tachycardic labs reviewed medications reviewed radiographic studies reviewed as well procedure bronchoscopy has been reviewed with the patient will reschedule patient for bronchoscopy tomorrow will hold Nathan 43-year-old female with a history of non-ischemic cardiomyopathy status post AICD performed a year ago, patient has not been sick for almost a month to month and a half with intermittent palpitation and tachycardia she follows Dr. siu for primary care activity also follows Dr. Richards for primary care activity, patient has been recently hospitalized a month ago at [facility] was found to have the TTP and was treated with IgG infusion and kal smapheresis the hospital course was complicated with thrombosis as well as pulmonary embolism has been on long-term anticoagulation with oral anticoagulants, patient has been admitted to hospital with ongoing palpitation and feeling of heart beat a computed tomography scan of the chest performed rev ealed dense rounded scattered infiltrate in the basal one appeared to have some development of necrosis and cavitation I was asked to evaluate this patient further, patient denies any hemoptysis does have night sweats but denies any chills or fever denies any significant weight loss in the last several months, patient is a smoker and has been smoking over a pack a day quit several months ago, currently her labs are fairly unremarkable except for borderline hyperglycemia elevated sed rate and C-reactive protein, urinalysis has not been performed with the renal functions are normal Objective - Vital Signs Vital signs: Vital Signs Temp 98.2 F 01/16/19 04:00 Pulse 92 01/16/19 04:00 Resp 18 01/16/19 04:00 BP 90/48 01/16/19 04:00 Pulse Ox 94 L 01/16/19 04:00 Intake & Output 01/15/19 01/16/19 01/16/19 18:59 06:59 18:59 Intake Total 240 240 Balance 240 240 Weight 84.6 kg Intake: Oral 240 240 Other: Voiding Method Toilet # Voids 1 - Exam - Constitutional General appearance: average body habitus, cooperative, disheveled, mild distress, obese - EENT Eyes: anicteric sclerae, EOMI, PERRLA, poor dentition, normal appearance Ears: bilateral: normal - Neck Neck: normal ROM Carotids: bilateral: upstroke normal - Respiratory Respiratory: bilateral: CTA - Cardiovascular Rhythm: regular Heart sounds: normal: S1, S2 - Gastrointestinal General gastrointestinal: normal bowel sounds - Integumentary Integumentary: decreased turgor, normal - Neurologic Neurologic: CNII-XII intact - Musculoskeletal Musculoskeletal: gait normal, generalized weakness, strength equal bilaterally - Psychiatric Psychiatric: A&O x's 3, appropriate affect, intact judgment & insight - Labs CBC & Chem 7: 01/14/19 07:56 01/16/19 09:43 Labs: Abnormal Lab Results - Last 24 Hours (Table) 01/15/19 01/15/19 01/15/19 Range/Units 00:00 00:00 11:18 ESR 83 H (0-20) mm/hr Creatinine (0.52-1.04) mg/dL Glucose (74-99) mg/dL POC Glucose (mg/dL) 185 H (75-99) mg/dL C-Reactive Protein 52.2 H (<10.0) mg/L 01/15/19 01/15/19 01/16/19 Range/Units 16:20 20:31 06:01 ESR (0-20) mm/hr Creatinine (0.52-1.04) mg/dL Glucose (74-99) mg/dL POC Glucose (mg/dL) 148 H 162 H 135 H (75-99) mg/dL C-Reactive Protein (<10.0) mg/L 01/16/19 Range/Units 09:43 ESR (0-20) mm/hr Creatinine 0.47 L (0.52-1.04) mg/dL Glucose 145 H (74-99) mg/dL POC Glucose (mg/dL) (75-99) mg/dL C-Reactive Protein (<10.0) mg/L Assessment and Plan Assessment: Dense alveolar infiltrate rounded nodular appearance likely pneumonia infectious versus noninfectious versus neoplastic Palpitation and tachycardia Nonischemic cardiomyopathy status post AICD History of recent DVT PE/DIC TTP requiring plasmapheresis and immunoglobulin infusion with normalization of renal functions as well as Elevated sed rate as well as C-reactive protein Plan: Continue broad-spectrum antibiotics reviewed the computed tomography scan We'll review the old record records Bronchoscopy with BAL being arranged, procedure explained to the patient at length Time with Patient: Greater than 30
[2019-01-16 11:37] LABS: Glucose,Whole Blood 138 mg/dL (75-99)
--- NOTE | 2019-01-16 11:54 | ECHOF ---
Referral Reason:vegetations MEASUREMENTS -------- HEIGHT: 170.2 cm WEIGHT: 85.3 kg BP: 90/48 RVIDd: 2.6 cm (< 3.3) IVSd: 0.9 cm (0.6 - 1.1) LVIDd: 5.5 cm (3.9 - 5.3) LVPWd: 1.2 cm (0.6 - 1.1) IVSs: 1.1 cm LVIDs: 4.3 cm LVPWs: 1.5 cm LA Diam: 3.5 cm (2.7 - 3.8) LAESV Index (A-L): 23.97 ml/m Ao Diam: 3.2 cm (2.0 - 3.7) AV Cusp: 2.2 cm (1.5 - 2.6) MV EXCURSION: 11.063 mm (> 18.000) MV EF SLOPE: 66 mm/s (70 - 150) EPSS: 1.6 cm MV E Abilio: 0.80 m/s MV DecT: 190 ms MV A Abilio: 0.35 m/s MV E/A Ratio: 2.26 RAP: 5.00 mmHg RVSP: 27.98 mmHg FINDINGS -------- Sinus rhythm. Pacerwire seen in RV and RA. This was a technically good study. The left ventricle is mildly dilated. There is borderline concentric left ventricular hypertrophy. There is severe global hypokinesis of LV . Overall left ventricular systolic function is moderate -severely impaired with, an EF between 30 - 35 %. The right ventricle is normal in size. Normal LA size by volume 22+/-6 ml/m2. The right atrium is normal in size. The aortic valve is trileaflet, and appears structurally normal. No aortic stenosis or regurgitation. The mitral valve is normal. Mild mitral regurgitation is present. Mild tricuspid regurgitation present. Right ventricular systolic pressure is normal at < 35 mmHg. Trace/mild (physiologic) pulmonic regurgitation. The aortic root size is normal. Normal inferior vena cava with normal inspiratory collapse consistent with estimated right atrial pre ssure of 5 mmHg. There is no pericardial effusion. CONCLUSIONS -------- 1. Sinus rhythm. 2. Pacerwire seen in RV and RA. 3. This was a technically good study. 4. The left ventricle is mildly dilated. 5. There is borderline concentric left ventricular hypertrophy. 6. There is severe global hypokinesis of LV . 7. Overall left ventricular systolic function is moderate-severely impaired with, an EF between 30 - 35 %. 8. Normal LA size by volume 22+/-6 ml/m2. 9. The aortic valve is trileaflet, and appears structurally normal. No aortic stenosis or regurgitati on. 10. Mild mitral regurgitation is present. 11. Mild tricuspid regurgitation present. 12. Right ventricular systolic pressure is normal at < 35 mmHg. 13. Trace/mild (physiologic) pulmonic regurgitation. 14. The aortic root size is normal. 15. Normal inferior vena cava with normal inspiratory collapse consistent with estimated right atrial pressure of 5 mmHg. 16. There is no pericardial effusion. PRODUCTION BORING MACHINE OPERATOR: Lesly Quezada RDCS
[2019-01-16 12:30] LABS: Appearance,Urine Cloudy (Clear); Bacteria,Urine Many /hpf; Bilirubin,Urine Negative (Negative); Blood,Urine Large (Negative); Color,Urine Light Red; Glucose,Urine (UA) Negative (Negative); Ketones,Urine Negative (Negative); Leukocyte Esterase,Urine Negative (Negative); Mucus,Urine Occasional /hpf; Nitrite,Urine Negative (Negative); PH, Urine 5.5 (5.0-8.0); Protein,Urine Trace (Negative); RBC,Urine >182 /hpf (0-5); Specific Gravity,Urine 1.013 (1.001-1.035); Squamous Epithelial Cell,Urine 5 /hpf (0-4); Urobilinogen,Urine <2.0 mg/dL (<2.0); WBC,Urine 23 /hpf (0-5)
[2019-01-16 17:00] LABS: Glucose,Whole Blood 180 mg/dL (75-99)
[2019-01-16 20:52] LABS: Glucose,Whole Blood 195 mg/dL (75-99)
[2019-01-17] MEDS: VANCOMYCIN 1,500 MG in SODIUM CHLORIDE 0.9% 250 ML IVPB SCH ×3 (00:09→17:50)
--- NOTE | 2019-01-17 00:24 | PN ---
PROGRESS NOTE DATE OF SERVICE: 01/16/2019. REASON FOR FOLLOWUP: Cavitating pneumonia. INTERVAL HISTORY: The patient is currently afebrile. The patient has been breathing comfortably. The patient denies having any chest pain. No shortness of breath. Very minimal cough. No nausea, no vomiting. No abdominal pain or diarrhea. PHYSICAL EXAMINATION: Blood pressure is 107/57 with a pulse of 90, temperature 98, she is 94% on room air. GENERAL DESCRIPTION: A middle-aged female lying in bed in no distress. RESPIRATORY SYSTEM: Unlabored breathing. Decreased breath sounds at the bases. No wheeze or crackle. HEART: S1, S2. Regular rate and rhythm. ABDOMEN: Soft, no tenderness. LABS: Urine has been slightly positive. The white count has been normal at 7.9. elevated at 83. CRP 52. Echocardiogram with no evidence of any vegetation. DIAGNOSTIC IMPRESSION AND PLAN: Patient with CT of the chest raising possibility of a cavitating pneumonia, question of septic emboli, however, the patient current not behaving as such with no fever. Blood culture negative so far. CT will be reviewed with radiologist. Continue empiric vancomycin at this point. Continue supportive care. MMODL / IJN: [id number] /
[2019-01-17] MEDS: CARVEDILOL 12.5 MG TAB PO SCH ×2 (06:08→17:50)
[2019-01-17 06:19] LABS: Glucose,Whole Blood 181 mg/dL (75-99)
[2019-01-17 07:36] LABS: Anion Gap 7 mmol/L; Blood Urea Nitrogen 9 mg/dL (7-17); Calcium 9.4 mg/dL (8.4-10.2); Carbon Dioxide 27 mmol/L (22-30); Chloride 103 mmol/L (98-107); Glucose 179 mg/dL (74-99); Potassium 4.5 mmol/L (3.5-5.1); Sodium 137 mmol/L (137-145)
[2019-01-17] MEDS: BUPRENORPHINE HCL 150 MCG BUCCAL SCH ×2 (11:40→15:25)
[2019-01-17] MEDS: INSULIN ASPART (NovoLOG) 100 UNIT/ML VIAL SQ SCH ×4 (11:40→20:06)
[2019-01-17] MEDS: CEFEPIME 2 GM in SODIUM CHLORIDE 0.9% 100 ML IVPB SCH (11:44)
[2019-01-17 11:45] LABS: Glucose,Whole Blood 190 mg/dL (75-99)
[2019-01-17] MEDS ORDERED: LIDOCAINE 1% INJ 10MG/ML (20 ML MDV) ONE (13:07)
[2019-01-17] MEDS ORDERED: PROPOFOL 10 MG/ML 20 ML VIAL IV ONE (13:07)
--- NOTE | 2019-01-17 13:10 | P.PN ---
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 01/17/2019, patient seen eval examined during the rounds clinically patient still have ongoing cough was severity has been stable some shortness of breath is present, is still have intermittent palpitation, patient is scheduled for bronchoscopy later on today, all cultures have been negative, urine cultures are pending, c-ANCA level is pending, urine analysis positive for large blood with WBC and many bacteria has been seen 01/16/2019, patient seen and evaluated examined during the rounds overall no significant change compared to yesterday is still of ongoing cough denies any sputum production does get some shortness of breath on activity and exertion, patient has been evaluated by cardiovascular services, continue to be tachycardic labs reviewed medications reviewed radiographic studies reviewed as well procedure bronchoscopy has been reviewed with the patient will reschedule patient for bronchoscopy tomorrow will hold Nathan 43-year-old female with a history of non-ischemic cardiomyopathy status post AICD performed a year ago, patient has not been sick for almost a month to month and a half with intermittent palpitation and tachycardia she follows Dr. siu for primary care activity also follows Dr. Richards for primary care activity, patient has been recently hospitalized a month ago at [facility] was found to have the TTP and was treated with IgG infusion and plasmapheresis the hospital course was complicated with thrombosis as well as pulmonary embolism has been on long-term anticoagulation with oral anticoagulants, patient has been admitted to hospital with ongoing palpitation and feeling of heart beat a computed tomography scan of the chest performed revealed dense rounded scattered infiltrate in the basal one appeared to have some development of necrosis and cavitation I was asked to evaluate this patient further, patient denies any hemoptysis does have night sweats but denies any chills or fever denies any significant weight loss in the last several months, patient is a smoker and has been smoking over a pack a day quit several months ago, currently her labs are fairly unremarkable except for borderline hyperglyce linda elevated sed rate and C-reactive protein, urinalysis has not been performed with the renal functions are normal Objective - Vital Signs Vital signs: Vital Signs Temp 97.1 F L 01/17/19 12:55 Pulse 94 01/17/19 12:55 Resp 18 01/17/19 12:55 BP 108/63 01/17/19 12:55 Pulse Ox 97 01/17/19 12:55 Intake & Output 01/16/19 01/17/19 01/17/19 18:59 06:59 18:59 Intake Total 720 350 Balance 720 350 Weight 89.5 kg Intake: IV 350 Cefepime 2 gm In Sodium 100 Chloride 0.9% 100 ml @ 200 mls/hr IVPB Q12H [facility] Rx#:[id number] Vancomycin 1,500 mg In 250 Sodium Chloride 0.9% 250 ml @ 125 mls/hr IVPB Q8H [facility] Rx#:[id number] Oral 720 Other: Voiding Method Toilet Toilet # Voids 2 1 - Exam - Constitutional General appearance: average body habitus, cooperative, disheveled, mild distress, obese - EENT Eyes: anicteric sclerae, EOMI, PERRLA, poor dentition, normal appearance Ears: bilateral: normal - Neck Neck: normal ROM Carotids: bilateral: upstroke normal - Respiratory Respiratory: bilateral: CTA - Cardiovascular Rhythm: regular Heart sounds: normal: S1, S2 - Gastrointestinal General gastrointestinal: normal bowel sounds - Integumentary Integumentary: decreased turgor, normal - Neurologic Neurologic: CNII-XII intact - Musculoskeletal Musculoskeletal: gait normal, generalized weakness, strength equal bilaterally - Psychiatric Psychiatric: A&O x's 3, appropriate affect, intact judgment & insight - Labs CBC & Chem 7: 01/14/19 07:56 01/17/19 07:12 Labs: Abnormal Lab Results - Last 24 Hours (Table) 01/16/19 01/16/19 01/17/19 Range/Units 16:58 20:35 06:16 Creatinine (0.52-1.04) mg/dL Glucose (74-99) mg/dL POC Glucose (mg/dL) 180 H 195 H 181 H (75-99) mg/dL 01/17/19 01/17/19 Range/Units 07:12 11:43 Creatinine 0.45 L (0.52-1.04) mg/dL Glucose 179 H (74-99) mg/dL POC Glucose (mg/dL) 190 H (75-99) mg/dL Microbiology - Last 24 Hours (Table) 03/10/19 03:25 Blood Culture - Preliminary Blood No Growth after 24 hours 01/15/19 00:00 Blood Culture - Preliminary Blood No Growth after 24 hours 01/16/19 11:45 Urine Culture - Preliminary Urine,Voided Assessment and Plan Assessment: UTI Hematuria Dense alveolar infiltrate rounded nodular appearance likely pneumonia infectious versus noninfectious versus neoplastic Palpitation and tachycardia Nonischemic cardiomyopathy status post AICD History of recent DVT PE/DIC TTP requiring plasmapheresis and immunoglobulin infusion with normalization of renal functions as well as Elevated sed rate as well as C-reactive protein, C-ANCA level is pending Plan: Continue broad-spectrum antibiotics reviewed the computed tomography scan We'll review the old record records Bronchoscopy with BAL being arranged, procedure explained to the patient at length Time with Patient: Greater than 30
[2019-01-17] MEDS ORDERED: LIDOCAINE 2% INJ 20 MG/ML INTRATRACH ONE (13:23)
[2019-01-17] MEDS ORDERED: IV FLUID CONTINUATION 1,000 ML IV ONE (13:25)
--- NOTE | 2019-01-17 13:26 | P.PCN ---
Date of Procedure: 01/17/19 Preoperative Diagnosis: Pneumonia Postoperative Diagnosis: As above Procedure(s) Performed: Bronchoscopy, bronchial lavage from the right upper lobe and right lower lobe and left lower lobe Anesthesia: MAC Surgeon: Andrew Forrester Condition: stable Indications for Procedure: As below Operative Findings: As below Description of Procedure: Repair and draped in a usual fashion fiberoptic bronchoscope was passed with the right nares, slight tightening of brown of the nasal mucosa was noted but no significant pathology has been identified tip of the scope was passed into the laryngeal area the vocal cords were noted to be normal structure and function tip of the scope was passed beyond the vocal cords and trachea mild diffuse right heme edema of both tracheobronchial tree bilaterally was noted but no endobronchial mass or lesion was seen no significant other pathology like endobronchial mass was noted above the scope was rash in the right lower lobe basal segment BAL was performed followed by BAL of the right upper lobe as well as left lower lobe right upper lobe, right middle lobe and right lower lobe along with subsegment was inspected followed by inspection of left upper lobe lingular lobe and left lower lobe, patient tolerated procedure well no complication noted
[2019-01-17] MEDS: LISINOPRIL 10 MG TAB PO SCH (13:47)
[2019-01-17] MEDS: busPIRone HCl 10 MG TAB PO SCH ×2 (13:47→20:06)
[2019-01-17] MEDS: SPIRONOLACTONE 25 MG TAB PO SCH (13:47)
[2019-01-17] MEDS: INSULIN DETEMIR (LEVEMIR) 100 UNIT/ML SYR SQ SCH (13:48)
[2019-01-17] MEDS: DESVENLAFAXINE SUCCINATE 50 MG TAB.ER.24H PO SCH (13:48)
[2019-01-17 14:07] LABS: C-ANCA <1:20 Titer (<1:20); P-ANCA <1:20 Titer (<1:20)
[2019-01-17 15:48] VITALS: PULSE 96
[2019-01-17 17:05] LABS: Glucose,Whole Blood 220 mg/dL (75-99)
[2019-01-17 20:17] LABS: Glucose,Whole Blood 154 mg/dL (75-99)
[2019-01-17 20:55] VITALS: BP 126/67; TEMP 97.3
--- NOTE | 2019-01-17 23:09 | PN ---
PROGRESS NOTE DATE OF SERVICE: 01/17/2019. REASON FOR FOLLOWUP VISIT: Cavitating lesion on the lung with question of pneumonia. INTERVAL HISTORY: The patient is afebrile. The patient denies having any chest pain or shortness of breath or cough. No nausea or vomiting. No abdominal pain or any diarrhea. PHYSICAL EXAMINATION: Blood pressure is 126/57 with a pulse of 93. Temperature is 97.3. She is 96% on room air. General description is a middle-aged female up in the bed in no distress. RESPIRATORY SYSTEM: Unlabored breathing. Clear to auscultation anteriorly. No wheeze or crackles. Heart S1-S2 regular rate and rhythm. Abdomen soft, no tenderness. Extremities: No edema of the feet. LABS: BUN of 9, creatinine 0.45. Blood culture has been negative. DIAGNOSTIC IMPRESSION AND PLAN: Patient with evidence of lower lobe with concern for possible pneumonia however the patient is not behaving as such with no fever, no respiratory symptoms, questionably rheumatological disorder versus related to recent DIC . Case was discussed in detail with the carrot buncher as well as the admitting physician. Antibiotic will be discontinued. The patient will be monitored closely off antibiotic therapy. Questions and concerns were answered. MMODL / IJN: [id number] /
--- NOTE | 2019-01-19 14:30 | PN ---
PROGRESS NOTE DATE OF SERVICE: 01/16/2019 PRESENT COMPLAINT: Sinus tachycardia. INTERVAL HISTORY: This patient is seen by me on 01/16/2019. The patient has underlying dilated cardiomyopathy with AICD. The patient was seen by Cardiology. Nothing further to be added. Did speak to Dr. Forrester from Pulmonary. He is planning to do a bronchoscopy tomorrow. Patient has no pulmonary symptoms. No cough. No sputum. No fever. No chills. Tolerating a diet, otherwise rather comfortable. REVIEW OF SYSTEMS: Done for constitutional, cardiovascular, GI, pulmonary; relevant findings as above. Current medications are reviewed. PHYSICAL EXAMINATION: Temperature 97.1, pulse 85, respiration 16, blood pressure 99/63, pulse ox 97% on room. GENERAL APPEARANCE: Sitting up, comfortable. EYES: Pupils equal, conjunctivae normal. NECK: JVD not raised. Mass not palpable. RESPIRATORY: Effort normal. LUNGS: Slightly decreased breath sounds. CARDIOVASCULAR: First and second sounds normal, no edema. ABDOMEN: Soft, nontender. Liver and spleen palpable. PSYCHIATRY: Alert and oriented x3. Mood and affect was normal. INVESTIGATIONS: UA has got squamous epithelial cells. ASSESSMENT: 1. Sinus tachycardia probably from underlying dilated cardiomyopathy. 2. Dilated cardiomyopathy with AICD in place. 3. Multiple cavities on the chest could have been from the recent pulmonary embolism. The patient has no respiratory symptoms, being followed by Pulmonary. 4. Diabetes mellitus type 2, chronically on insulin. 5. Asymptomatic bacteriuria with no urinary symptoms. 6. Hyperlipidemia. 7. Essential hypertension. 8. Obstructive sleep apnea. Using CPAP. 9. Anxiety and depression, not otherwise specified. 10.Irritable bowel syndrome. 11.Recent lumbar surgery done at [facility]. 12.Recent deep venous thrombosis and pulmonary embolism for which patient is on Eliquis. PLAN: Patient has no urinary symptoms. No need for antibiotics. Awaiting bronchoscopy by Dr. Forrester. Other medication treatment plans to continue. MMODL / IJN: [id number] /
== END 2019-01-17 22:04 | disposition home or self-care (01) | DRG 194 ==
LOC: EC 18:28 → 3SCARD 21:32 → OBSVTOIN 01-15 16:00
PROVIDERS: ADMIT Hospitalist; ATTEND Hospitalist
PROC: 0B9G7ZX Drainage of Left Upper Lung Lobe, Via Natural or Artificial Opening, Diagnostic (ICD-10-PCS; 2019-01-17)
PROC: 0B9F7ZX Drainage of Right Lower Lung Lobe, Via Natural or Artificial Opening, Diagnostic (ICD-10-PCS; 2019-01-17)
PROC: 0B9J7ZX Drainage of Left Lower Lung Lobe, Via Natural or Artificial Opening, Diagnostic (ICD-10-PCS; principal; 2019-01-17 08:50)
DX: J18.8 Other pneumonia, unspecified organism (principal); I42.0 Dilated cardiomyopathy; N39.0 Urinary tract infection, site not specified; E11.65 Type 2 diabetes mellitus with hyperglycemia; E78.5 Hyperlipidemia, unspecified; F32.9 Major depressive disorder, single episode, unspecified; F41.9 Anxiety disorder, unspecified; G47.33 Obstructive sleep apnea (adult) (pediatric); I10 Essential (primary) hypertension; K58.9 Irritable bowel syndrome, unspecified; M54.9 Dorsalgia, unspecified; R31.9 Hematuria, unspecified; R70.0 Elevated erythrocyte sedimentation rate; G89.29 Other chronic pain; R91.1 Solitary pulmonary nodule; R00.0 Tachycardia, unspecified; Z79.01 Long term (current) use of anticoagulants; Z79.4 Long term (current) use of insulin; Z79.899 Other long term (current) drug therapy; Z95.810 Presence of automatic (implantable) cardiac defibrillator; Z86.718 Personal history of other venous thrombosis and embolism; Z86.711 Personal history of pulmonary embolism; Z86.2 Personal history of diseases of the blood and blood-forming organs and certain disorders involving the immune mechanism; Z87.891 Personal history of nicotine dependence; Z87.01 Personal history of pneumonia (recurrent); Z80.8 Family history of malignant neoplasm of other organs or systems
CPT/HCPCS: 31624; 36415; 71046; 71250; 80048; 80053; 80202; 81001; 81025; 83735; 83880; 84484; 85025; 85610; 85652; 85730; 86140; 86255; 87040; 87070; 87086; 87102; 87116; 87205; 87206; 87252; 87496; 87498; 87502; 87529; 87634; 87798; 88108; 88305; 93005; 93306; 94760; 96365; 96366; 99285

== ENCOUNTER 2019-05-15 06:22 | Emergency (ER) | payer BC ==
[2019-05-15 06:29] VITALS: RESP 18
[2019-05-15] MEDS ORDERED: methylPREDNISolone SOD SUCCI 125 MG/2 ML VIAL IM ONE (07:09)
[2019-05-15] MEDS ORDERED: ORPHENADRINE 30 MG/ML 2 ML VIAL IM STA (07:10)
[2019-05-15] MEDS ORDERED: KETOROLAC 30 MG/ML 1 ML VIAL IM STA (07:10)
--- NOTE | 2019-05-15 07:14 | ED ---
General Adult HPI - General Chief complaint: Neck Pain/Injury Stated complaint: Rt arm and neck pain Time Seen by Provider: 05/15/19 07:01 Source: patient, RN notes reviewed, old records reviewed Mode of arrival: ambulatory Limitations: no limitations - History of Present Illness Initial comments: Patient is a 43-year-old female presents emergency department today for evaluation for complaints of right-sided neck pain, shoulder pain and arm pain and rib pain starting Wednesday. Patient states it's worse with movement. She denies associated chest pain or shortness of breath. Patient states that she had no fall or trauma to cause them to have worsening pain. She states she's had extensive past medical history of possible cluster she is on blood thinners and takes them religiously. Patient states that she has had no associated fevers or chills. Denies any coughing or abdominal pain. - Related Data Home Medications Medication Instructions Recorded Confirmed Lisinopril [Zestril] 10 mg PO DAILY 04/07/18 05/15/19 Carvedilol [Coreg] 25 mg PO BID 11/17/18 05/15/19 Spironolactone [Aldactone] 25 mg PO DAILY 11/17/18 05/15/19 busPIRone HCl [Buspar] 10 mg PO BID 11/17/18 05/15/19 Apixaban [Eliquis] 5 mg PO BID 01/13/19 05/15/19 Cholecalciferol [Vitamin D3] 400 unit PO DAILY 01/13/19 05/15/19 Insulin Glargine [Lantus] 40 unit SQ DAILY 01/13/19 05/15/19 Aspirin EC [Ecotrin Low Dose] 81 mg PO DAILY 05/15/19 05/15/19 FLUoxetine HCL [PROzac] 20 mg PO DAILY 05/15/19 05/15/19 buPROPion HCL [Wellbutrin XL] 300 mg PO DAILY 05/15/19 05/15/19 sitaGLIPtin [Januvia] 100 mg PO DAILY 05/15/19 05/15/19 Previous Rx's Medication Instructions Recorded Cyclobenzaprine [Flexeril] 10 mg PO TID #15 tab 05/15/19 methylPREDNISolone [Medrol Dose 4 mg PO DIRECTED #1 pack 05/15/19 Pack] Allergies Allergy/AdvReac Type Severity Reaction Status Date / Time No Known Allergies Allergy Verified 05/15/19 07:25 Review of Systems ROS Statement: Those systems with pertinent positive or pertinent negative responses have been documented in the HPI. ROS Other: All systems not noted in ROS Statement are negative. Past Medical History Past Medical History: Diabetes Mellitus, Hyperlipidemia, Hypertension, Skin Disorder, Sleep Apnea/CPAP/BIPAP Additional Past Medical History / Comment(s): Gets cysts, boil left outer thigh, - resolved. Back pain-currently waiting to have back surgery - Fusion L4-L5. "Weak and enlarged heart." CPAP use, IBS, nerve pain in right leg, occasionally in left leg. History of Any Multi-Drug Resistant Organisms: None Reported Past Surgical History: AICD, Back Surgery, Heart Catheterization, Pacemaker Additional Past Surgical History / Comment(s): Tubes brandie ears, right ear surgery, removal of cyst from ovaries. Past Anesthesia/Blood Transfusion Reactions: No Reported Reaction Type of Cardiac Device: AICD Device Placement Date:: 2017 Past Psychological History: Anxiety, Depression Smoking Status: Current every day smoker Past Alcohol Use History: Occasional Past Drug Use History: None Reported - Past Family History Mother Family Medical History: Cancer Additional Family Medical History / Comment(s): melanoma General Exam - General Exam Comments Initial Comments: This is a 43-year-old female. Alert and oriented 3. No significant distress. Limitations: no limitations General appearance: alert Head exam: Present: atraumatic, normocephalic, normal inspection Eye exam: Present: normal appearance, PERRL, EOMI. Absent: scleral icterus, conjunctival injection, periorbital swelling ENT exam: Present: normal exam, mucous membranes moist Neck exam: Present: normal inspection, tenderness (Lower cervical spinal tenderness. Tenderness over the right paraspinal muscles.). Absent: meningismus, lymphadenopathy Respiratory exam: Present: normal lung sounds bilaterally, other (Tenderness over right ribs.). Absent: respiratory distress, wheezes, rales, rhonchi, stridor Cardiovascular Exam: Present: regular rate, normal rhythm, normal heart sounds. Absent: systolic murmur, diastolic murmur, rubs, gallop, clicks GI/Abdominal exam: Present: soft, normal bowel sounds. Absent: distended, tenderness, guarding, rebound, rigid Extremities exam: Present: normal inspection, full ROM, normal capillary refill. Absent: tenderness, pedal edema, joint swelling, calf tenderness Back exam: Present: normal inspection Course Vital Signs 05/15/19 06:27 Temperature 98.1 F Pulse Rate 99 Respiratory 18 Rate Blood Pressure 110/69 O2 Sat by Pulse 96 Oximetry Medical Decision Making - Medical Decision Making Patient is a 43-year-old female who presents emergency department for evaluation for right-sided arm and neck and back pain for 4 days. Patient appears to have muscle spasms, tenderness to palpation over ribs and arm. She has normal pulse and sensation distally. No significant swelling. Patient chest x-ray is completed shows evidence of healing right lung lesion. Small left trace pleural effusion noted. Cervical spine x-ray shows lack of normal curvature likely related to muscle spasm or some disc disease noted at C5-C6. Patient was informed these results Patient is given I am slight Medrol Norflex and Toradol. And her pain seems to be muscular skeletal nature worse with movement. Discussed discharge and Patient with a short course of steroids and muscle relaxers and advised her of close follow-up with PCP. All questions were answered return parameters were discussed. - Radiology Data Radiology results: report reviewed Some residual opacity right basilar density at the patient's previous cavitary nodule. Possible scarring. Continued follow-up trace left effusion appears new. Mild to moderate spinal changes C5-C6. Reversal of cervical cervical lordosis is positional or due to muscle spasm. No malalignment. Disposition Clinical Impression: Strain of neck muscle, Back muscle spasm Disposition: HOME SELF-CARE Condition: Good Instructions (If sedation given, give patient instructions): Cervical Sprain (ED), Muscle Spasm (ED) Additional Instructions: Patient advised to have close follow-up with primary care physician. Denies a take the medications as prescribed. Patient should apply heat and ice to the area of soreness. Return to the emergency department if any alarming signs or symptoms occur. Prescriptions: Cyclobenzaprine [Flexeril] 10 mg PO TID #15 tab methylPREDNISolone [Medrol Dose Pack] 4 mg PO DIRECTED #1 pack Is patient prescribed a controlled substance at d/c from ED?: No Referrals: Wilton Richards MD [Primary Care Provider] - 1-2 days Time of Disposition: 08:42
--- NOTE | 2019-05-15 08:13 | XR ---
EXAMINATION TYPE: XR chest 2V DATE OF EXAM: 05/15/2019 COMPARISON: 01/13/2019 HISTORY: 43 year-old female right rib pain TECHNIQUE: PA and lateral views FINDINGS: Heart limits of normal in size. Strandy atelectasis at the lung bases. Some residual mild patchy dens ity remains at the right base. Trace effusion on the left. IMPRESSION: Some residual patchy right basilar density at the site of patient's previous cavitary nodule. Probabl e scarring. Continued follow-up recommended. Trace left effusion appears new.
--- NOTE | 2019-05-15 08:14 | XR ---
EXAMINATION TYPE: XR cervical spine limited DATE OF EXAM: 05/15/2019 COMPARISON: NONE HISTORY: 43-year-old female right-sided neck pain TECHNIQUE: 4 views FINDINGS: No predental space widening or prevertebral soft tissue swelling. Reversal of the normal cervical bijan dosis but with preserved alignment. Mild to moderate disc/endplate degenerative change at C5-C6. Asso ciated uncovertebral joint arthropathy. Normal odontoid view. IMPRESSION: Mild to moderate spondylotic change at C5-C6. Reversal of the normal cervical lordosis could be posit ional or due to muscle spasm. No malalignment.
[2019-05-15 09:05] VITALS: BP 134/80; PULSE 91; TEMP 98.3
== END 2019-05-15 09:04 | disposition home or self-care (01) ==
LOC: EC 06:22
DX: S16.1XXA Strain of muscle, fascia and tendon at neck level, initial encounter (principal); M62.830 Muscle spasm of back; E11.9 Type 2 diabetes mellitus without complications; E78.5 Hyperlipidemia, unspecified; I10 Essential (primary) hypertension; G47.30 Sleep apnea, unspecified; F41.9 Anxiety disorder, unspecified; F32.9 Major depressive disorder, single episode, unspecified; F17.200 Nicotine dependence, unspecified, uncomplicated; Z79.02 Long term (current) use of antithrombotics/antiplatelets; Z79.01 Long term (current) use of anticoagulants; Z79.82 Long term (current) use of aspirin; Z79.4 Long term (current) use of insulin; Z79.899 Other long term (current) drug therapy; Z95.0 Presence of cardiac pacemaker
CPT/HCPCS: 72040; 71046; 99284; 96372 ×3; J2360; J2930; J1885

== ENCOUNTER → 2019-06-02 | Outpatient (CLI) | payer BC ==
--- NOTE | 2019-06-06 13:26 | MM ---
Reason for exam: screening (asymptomatic). Last mammogram was performed 1 year and 10 months ago. History: Patient is nulliparous. Family history of breast cancer in paternal aunt. Took hormonal contraceptives for 17 years beginning at age 22. MG Screening Mammo w CAD Bilateral CC and MLO view(s) were taken. Prior study comparison: August 10, 2017, bilateral MG screening mammo w CAD. June 19, 2016, bilateral MG screening mammo w CAD. The breast tissue is heterogeneously dense. This may lower the sensitivity of mammography. No significant new finding when compared with prior studies. ASSESSMENT: Benign, BI-RAD 2 RECOMMENDATION: Routine screening mammogram of both breasts in 1 year.
== END | disposition home or self-care (01) ==
LOC: RADMAMWWP 13:45
PROVIDERS: ATTEND Family Medicine
DX: Z12.31 Encounter for screening mammogram for malignant neoplasm of breast (principal)
CPT/HCPCS: 77067

== ENCOUNTER 2019-06-23 18:42 | Emergency (ER) | payer BC ==
[2019-06-23 18:48] VITALS: RESP 18; TEMP 97.3
[2019-06-23] MEDS ORDERED: HYDROmorphone 0.5 MG/0.5 ML SYRINGE IVP STA (19:17)
[2019-06-23] MEDS ORDERED: DIAZEPAM 5 MG/ML 2 ML INJ IVP STA (19:17)
[2019-06-23] MEDS ORDERED: DEXAMETHASONE SOD PHOSPHATE 10 MG/ML 1 ML VIAL IV STA (19:17)
--- NOTE | 2019-06-23 19:26 | ED ---
Back Pain HPI - General Chief Complaint: Back Pain/Injury Stated Complaint: back pain Time Seen by Provider: 06/23/19 18:53 Source: EMS Limitations: no limitations - History of Present Illness Initial Comments: 43-year-old female patient with past medical history significant for sciatica, chronic low back pain, and back surgery presents to the emergency department today for evaluation of left low back pain radiating into the left buttock. Patient states his been going on for the last 4-5 days and worsening. Patient states that she has difficulty with changing position especially going from lying to sitting. She denies any numbness or tingling to the lower extremities. Denies any saddle anesthesia or loss of bowel or bladder control. Denies fever or chills. Denies hematuria, dysuria, urinary frequency, urinary urgency. Denies nausea or vomiting. Denies any known injury to the back. Patient denies any recent rash, shortness breath, chest pain, abdominal pain, diarrhea, constipation, dizziness, weakness, headache, visual changes, or any other complaints. - Related Data Home Medications Medication Instructions Recorded Confirmed Lisinopril [Zestril] 10 mg PO DAILY 04/07/18 05/15/19 Carvedilol [Coreg] 25 mg PO BID 11/17/18 05/15/19 Spironolactone [Aldactone] 25 mg PO DAILY 11/17/18 05/15/19 busPIRone HCl [Buspar] 10 mg PO BID 11/17/18 05/15/19 Apixaban [Eliquis] 5 mg PO BID 01/13/19 05/15/19 Cholecalciferol [Vitamin D3] 400 unit PO DAILY 01/13/19 05/15/19 Insulin Glargine [Lantus] 40 unit SQ DAILY 01/13/19 05/15/19 Aspirin EC [Ecotrin Low Dose] 81 mg PO DAILY 05/15/19 05/15/19 FLUoxetine HCL [PROzac] 20 mg PO DAILY 05/15/19 05/15/19 buPROPion HCL [Wellbutrin XL] 300 mg PO DAILY 05/15/19 05/15/19 sitaGLIPtin [Januvia] 100 mg PO DAILY 05/15/19 05/15/19 Previous Rx's Medication Instructions Recorded Cyclobenzaprine [Flexeril] 10 mg PO TID #15 tab 05/15/19 methylPREDNISolone [Medrol Dose 4 mg PO DIRECTED #1 pack 05/15/19 Pack] Acetaminophen-Codeine 300-30mg 1 tab PO Q6H PRN #12 tablet 06/23/19 [Tylenol #3] Diazepam [Valium] 5 mg PO TID PRN 3 Days #9 tab 06/23/19 methylPREDNISolone [Medrol Dose 4 mg PO DIRECTED #1 pack 06/23/19 Pack] Allergies Allergy/AdvReac Type Severity Reaction Status Date / Time No Known Allergies Allergy Verified 05/15/19 07:25 Review of Systems ROS Statement: Those systems with pertinent positive or pertinent negative responses have been documented in the HPI. ROS Other: All systems not noted in ROS Statement are negative. Past Medical History Past Medical History: Diabetes Mellitus, Hyperlipidemia, Hypertension, Skin Disorder, Sleep Apnea/CPAP/BIPAP Additional Past Medical History / Comment(s): Gets cysts, boil left outer thigh, - resolved. Back pain-currently waiting to have back surgery - Fusion L4-L5. "Weak and enlarged heart." CPAP use, IBS, nerve pain in right leg, occasionally in left leg. History of Any Multi-Drug Resistant Organisms: None Reported Past Surgical History: AICD, Back Surgery, Heart Catheterization, Pacemaker Additional Past Surgical History / Comment(s): Tubes brandie ears, right ear surgery, removal of cyst from ovaries. Past Anesthesia/Blood Transfusion Reactions: No Reported Reaction Type of Cardiac Device: AICD Device Placement Date:: 2017 Past Psychological History: Anxiety, Depression Smoking Status: Current every day smoker Past Alcohol Use History: Occasional Past Drug Use History: None Reported - Past Family History Mother Family Medical History: Cancer Additional Family Medical History / Comment(s): melanoma General Exam Limitations: no limitations General appearance: alert, in no apparent distress, other (This is a well- developed, well-nourished adult female patient in no acute distress. Vital signs upon presentation are temperature 97.3F, pulse 1:15, respirations 18, blood pressure 108/58, pulse ox 97% on room air.) Eye exam: Present: normal appearance, PERRL, EOMI. Absent: scleral icterus, conjunctival injection, periorbital swelling ENT exam: Present: normal exam, normal oropharynx, mucous membranes moist Respiratory exam: Present: normal lung sounds bilaterally. Absent: respiratory distress, wheezes, rales, rhonchi, stridor Cardiovascular Exam: Present: regular rate, normal rhythm, normal heart sounds. Absent: systolic murmur, diastolic murmur, rubs, gallop, clicks GI/Abdominal exam: Present: soft, normal bowel sounds. Absent: distended, tenderness, guarding, rebound, rigid Extremities exam: Present: normal inspection, full ROM, normal capillary refill, other (Skin to the lower extremities is pink, warm, dry. Cap refills less than 3 seconds. Pedal and posttibial pulses are 2+ and equal bilaterally.). Absent: tenderness, pedal edema, joint swelling, calf tenderness Back exam: Present: normal inspection. Absent: vertebral tenderness Neurological exam: Present: alert, oriented X3, CN II-XII intact, other (Strength in all extremities is 5/5.) Psychiatric exam: Present: normal affect, normal mood Skin exam: Present: warm, dry, intact, normal color. Absent: rash Course Vital Signs 06/23/19 06/23/19 18:46 21:03 Temperature 97.3 F L Pulse Rate 115 H 89 Respiratory 18 18 Rate Blood Pressure 108/58 106/50 O2 Sat by Pulse 97 98 Oximetry Medical Decision Making - Medical Decision Making 43-year-old female patient presented to the emergency department today for evaluation of left low back pain with radiation down the left buttock. Patient states pain started 4-5 days ago. She does have history of chronic low back pain with sciatica. Physical examination is unremarkable. She is neurovascularly and neurologically intact. Good strength in the lower extremities. She is afebrile. Vital signs are stable. She was given pain medication here in the emergency department. Upon reevaluation she does report improvement of symptoms per she is able to ambulate. She will be discharged home with prescriptions for pain medication and muscle relaxer. She is instructed to follow-up with her primary care physician to discuss referral to pain management should her symptoms continue. Return parameters were discussed in detail. She verbalizes understanding and agrees with this plan. Disposition Clinical Impression: Acute exacerbation of chronic low back pain Disposition: HOME SELF-CARE Condition: Good Instructions (If sedation given, give patient instructions): Acute Low Back Pain (ED), Lumbar Radiculopathy (ED) Additional Instructions: Perform gentle range of motion exercises. Avoid prolonged inactivity as this will make your pain worse. Take medications as directed. Follow-up with primary care physician to discuss referral to senior painter. Return to the emergency department immediately for any new, worsening, or concerning symptoms. Prescriptions: methylPREDNISolone [Medrol Dose Pack] 4 mg PO DIRECTED #1 pack Acetaminophen-Codeine 300-30mg [Tylenol #3] 1 tab PO Q6H PRN #12 tablet PRN Reason: Pain Diazepam [Valium] 5 mg PO TID PRN 3 Days #9 tab PRN Reason: Muscle Spasm Is patient prescribed a controlled substance at d/c from ED?: Yes When asked, does pt state using other controlled substances?: No If prescribed controlled substance>3 days was MAPS reviewed?: Prescribed <3 Days If opioid is for acute pain is fill amount 7 days or less?: Yes If Rx opioid, was Start Talking consent form obtained?: Yes Referrals: Wilton Richards MD [Primary Care Provider] - 1-2 days Time of Disposition: 20:42
[2019-06-23] MEDS ORDERED: KETOROLAC 30 MG/ML 1 ML VIAL IVP STA (19:27)
[2019-06-23 21:04] VITALS: BP 106/50; PULSE 89
== END 2019-06-23 21:09 | disposition home or self-care (01) ==
LOC: EC 18:42
DX: G89.29 Other chronic pain (principal); M54.5 Low back pain; E11.9 Type 2 diabetes mellitus without complications; I10 Essential (primary) hypertension; G47.39 Other sleep apnea; F32.9 Major depressive disorder, single episode, unspecified; F41.9 Anxiety disorder, unspecified; F17.200 Nicotine dependence, unspecified, uncomplicated; Z79.01 Long term (current) use of anticoagulants; Z79.4 Long term (current) use of insulin; Z79.82 Long term (current) use of aspirin; Z79.899 Other long term (current) drug therapy; Z98.1 Arthrodesis status; Z95.0 Presence of cardiac pacemaker; Z99.89 Dependence on other enabling machines and devices
CPT/HCPCS: 99284; 96374; 96375 ×3; J1100; J3360; J1885; J1170

== ENCOUNTER 2019-06-30 12:49 | Inpatient (IN) | payer BC ==
[2019-06-30 13:23] LABS: Glucose,Whole Blood 488 mg/dL (75-99)
[2019-06-30] MEDS ORDERED: SODIUM CHLORIDE 0.9% 1,000 ML IV STA (13:43)
--- NOTE | 2019-06-30 14:06 | ED ---
General Adult HPI - General Chief complaint: Recheck/Abnormal Lab/Rx Stated complaint: sleeping too much Time Seen by Provider: 06/30/19 13:00 Source: patient, family Mode of arrival: wheelchair Limitations: physical limitation - History of Present Illness Initial comments: The patient is a 43-year-old female who presents to the emergency Department with reported hypotension and suspected dehydration from family members. The patient does have a significant medical history. Sisters at bedside and provides the history. She states that her sister has had acute on chronic issues with left sided "sciatic pain" for the past 5 weeks. She has been eval uated by multiple physicians. Sister states that she's been placed on several courses of steroids. She is also taking [place] for pain control. She denies any saddle anesthesia or bowel/bladder incontinence. Sister states that the pain has been so out of control that the patient has stopped taking care of herself. She has stopped eating and drinking. She is not gotten out of bed in several days. She Does Have a History of Diabetes. States She Has Not Taken Her Medications in Several Days. Dr. Chavez did request that she have a lower extremity duplex performed as well as a CT PE protocol because she was recently diagnosed with a PE. She is on anticoagulation however has not taken this medication in several days. The patient did come to the hospital to have the studies performed. Vitals were obtained while the patient was here and she was noted to be hypotensive. She was then sent into the emergency room for further evaluation. Sister reports that it was very difficult to get the patient to agree to come to the ED. Sister also reports to recent issues with low platelets. She's been seen by a specialist at [facility] but they were unable to determine the etiology of the low platelets per family. She has a hx of ischemic cardiomyopathy with hx AICD. Patient denies any fevers or chills. No cough or hemoptysis. Denies any chest pain or shortness of breath. No abdominal pain. Denies any dark or black stools. The patient herself does not provide much history to me and therefore all information is provided by sister. There are no other alleviating, precipitating or modifying factors - Related Data Home Medications Medication Instructions Recorded Confirmed Lisinopril [Zestril] 10 mg PO DAILY 04/07/18 06/30/19 Insulin Glargine [Lantus] 40 unit SQ DAILY 01/13/19 06/30/19 sitaGLIPtin [Januvia] 100 mg PO DAILY 05/15/19 06/30/19 Amitriptyline HCl [Elavil] 10 mg PO HS 06/30/19 06/30/19 Apixaban [Eliquis] 5 mg PO BID 06/30/19 06/30/19 Buprenorphine HCl [Belbuca] 450 mcg PO BID 06/30/19 06/30/19 Carvedilol 25 mg PO BID 06/30/19 06/30/19 Cyclobenzaprine HCl 10 mg PO HS PRN 06/30/19 06/30/19 Desvenlafaxine Succinate [Pristiq] 100 mg PO DAILY 06/30/19 06/30/19 FLUoxetine HCL [PROzac] 20 mg PO DAILY 06/30/19 06/30/19 Insulin Lispro [humaLOG Kwikpen] 10 unit SQ AC-TID 06/30/19 06/30/19 Spironolactone 25 mg PO DAILY 06/30/19 06/30/19 busPIRone HCl [Buspar] 10 mg PO BID 06/30/19 06/30/19 methylPREDNISolone [Medrol Dose See Taper PO DIRECTED 06/30/19 06/30/19 Pack] valACYclovir HCL [Valacyclovir] 1,000 mg PO BID PRN 06/30/19 06/30/19 Allergies Allergy/AdvReac Type Severity Reaction Status Date / Time No Known Allergies Allergy Verified 06/30/19 13:12 Review of Systems ROS Statement: Those systems with pertinent positive or pertinent negative responses have been documented in the HPI. ROS Other: All systems not noted in ROS Statement are negative. Past Medical History Past Medical History: Diabetes Mellitus, Hyperlipidemia, Hypertension, Skin Disorder, Sleep Apnea/CPAP/BIPAP Additional Past Medical History / Comment(s): Gets cysts, boil left outer thigh, - resolved. Back pain-currently waiting to have back surgery - Fusion L4-L5. "Weak and enlarged heart." CPAP use, IBS, nerve pain in right leg, occasionally in left leg. History of Any Multi-Drug Resistant Organisms: None Reported Past Surgical History: AICD, Back Surgery, Heart Catheterization, Pacemaker Additional Past Surgical History / Comment(s): Tubes brandie ears, right ear surgery, removal of cyst from ovaries. Past Anesthesia/Blood Transfusion Reactions: No Reported Reaction Type of Cardiac Device: AICD Device Placement Date:: 2017 Past Psychological History: Anxiety, Depression Smoking Status: Current every day smoker Past Alcohol Use History: Occasional Past Drug Use History: None Reported - Past Family History Mother Family Medical History: Cancer Additional Family Medical History / Comment(s): melanoma General Exam Limitations: physical limitation General appearance: lethargic Head exam: Present: atraumatic, normocephalic Eye exam: Present: PERRL, EOMI Pupils: Present: normal accommodation ENT exam: Present: mucous membranes dry, TM's normal bilaterally Neck exam: Present: normal inspection. Absent: tenderness, meningismus Respiratory exam: Present: normal lung sounds bilaterally. Absent: respiratory distress, wheezes, rales, rhonchi, chest wall tenderness, accessory muscle use Cardiovascular Exam: Present: regular rate, normal rhythm, normal heart sounds GI/Abdominal exam: Present: soft. Absent: distended, tenderness, guarding, rebound, rigid Rectal exam: Present: deferred, other (patient denies ) Extremities exam: Present: normal inspection, full ROM, tenderness (reports sharp, shooting pain down posterior left leg with movement. 5/5 muscle strength in the b/l lower extremities. 2+ DP and PT pulses. Compartments are soft. Intact distal sensation.), normal capillary refill. Absent: pedal edema, joint swelling, calf tenderness Back exam: Present: normal inspection, other (no step offs or deformities. She has paraspinal tenderness to palpation of the lumbar spine bilaterally, L>R. ). Absent: rash noted Neurological exam: Present: other (weak, quiet, decreased activity) Psychiatric exam: Present: flat affect Skin exam: Present: warm, dry Course Vital Signs 06/30/19 06/30/19 06/30/19 12:59 13:10 13:28 Temperature 97.5 F L Pulse Rate 90 81 80 Respiratory 16 18 18 Rate Blood Pressure 64/41 77/49 76/46 O2 Sat by Pulse 99 96 100 Oximetry 06/30/19 06/30/19 06/30/19 14:29 16:14 17:30 Temperature Pulse Rate 81 87 86 Respiratory 18 18 18 Rate Blood Pressure 91/58 86/58 89/54 O2 Sat by Pulse 99 99 99 Oximetry 06/30/19 06/30/19 06/30/19 18:21 19:06 19:34 Temperature 98.2 F 97.5 F L Pulse Rate 82 90 Respiratory 18 18 Rate Blood Pressure 90/61 97/61 O2 Sat by Pulse 99 100 Oximetry 06/30/19 20:04 Temperature Pulse Rate 94 Respiratory 19 Rate Blood Pressure 95/54 O2 Sat by Pulse 99 Oximetry EKG Findings - EKG Comments: EKG Findings:: EKG demonstrates a normal sinus rhythm with a ventricular rate of 82. NC interval 174. QRS 104. QTC of 479. There is a mild conduction delay. No acute ST segment elevations. Q wave in lead 3. Medical Decision Making - Medical Decision Making Upon arrival the patient is placed into trauma bay 1. She is hooked up to continuous pulse ox and cardiac monitoring. Vitals were obtained and the patient is noted to have a blood pressure of 60 systolic. 2 large-bore peripheral IVs were established. The patient does have a history of dilated cardiomyopathy with an EF of 30% therefore I only provided the patient with 500 mL bolus of 0.9% normal saline. A bedside cardiac and IVC ultrasound was performed by myself. Does not demonstrate any signs of pericardial tamponade or effusion. I did recommend laboratory studies. I did review the results of the patient's CT PE and the lower extremity duplex. Laboratory studies were remarkable for a white blood cell count of 23,000. The patient denies fevers and chills. The patient is afebrile at this time. The leukocytosis may be secondary to recent steroid use vs infection. Her sodium is low at 125. BUN is elevated at 35. Glucose is elevated at 415. The patient does have improvement in her blood pressure to the mid 90s systolic. I did provide her with an additional 500 mL of normal saline and started her on 75 mL per hour. I did recommend admission to the hospital for which the patient did agree. I did call and discuss case with Dr. Keane. She recommends continuing the patient on fluid hydration and providing subcutanous insulin. She agrees to holding off on central line placement and pressors as the patients blood pressure has improved with fluid hydration. She is requesting I draw an acetone level on the patient. She is requesting hospital admission to the cardiac telemetry floor as we are not starting an insulin drip at this time. She reports the need to stabilize the patient first and she will evaluate further regarding the patients continued reported back pain. The patient did receive contrasted studies just prior to arrival to the emergency department. I did check a cortisol level with the patients use of steroids. The patient did agree to hospital admission. I discussed all of her results with her sister and the patient. She was re- evaluated and reports improved symptoms. The patient remained in stable condition and was transported to the floor. - Differential Diagnosis acute/chronic back pain, leukocytosis, hypotension, hyperglycemia - Lab Data Result diagrams: 07/01/19 06:19 07/01/19 06:19 Lab Results 06/30/19 06/30/19 06/30/19 Range/Units 13:15 13:26 13:26 WBC 23.5 H (3.8-10.6) k/uL RBC 5.23 (3.80-5.40) m/uL Hgb 13.1 (11.4-16.0) gm/dL Hct 41.5 (34.0-46.0) % MCV 79.3 L (80.0-100.0) fL MCH 25.0 (25.0-35.0) pg MCHC 31.5 (31.0-37.0) g/dL RDW 18.5 H (11.5-15.5) % Plt Count 194 (150-450) k/uL Neutrophils % (Manual) 64 % Band Neutrophils % 15 % Lymphocytes % (Manual) 4 % Monocytes % (Manual) 12 % Metamyelocytes % 3 % Myelocytes % 4 % Neutrophils # (Manual) 18.50 H (1.3-7.7) k/uL Lymphocytes # (Manual) 0.94 L (1.0-4.8) k/uL Monocytes # (Manual) 2.82 H (0-1.0) k/uL Metamyelocytes # (Man) 0.71 H (0) k/uL Myelocytes # (Manual) 0.94 H (0) k/uL Nucleated RBCs 0 (0-0) /100 WBC Manual Slide Review Performed Toxic Granulation Present Toxic Vacuolation Present Hypochromasia Slight Anisocytosis Slight Microcytosis Slight PT 11.2 (9.0-12.0) sec INR 1.1 (<1.2) APTT 29.1 (22.0-30.0) sec D-Dimer 1.42 H (<0.60) mg/L FEU Sodium (137-145) mmol/L Potassium (3.5-5.1) mmol/L Chloride (98-107) mmol/L Carbon Dioxide (22-30) mmol/L Anion Gap mmol/L BUN (7-17) mg/dL Creatinine (0.52-1.04) mg/dL Est GFR (CKD-EPI)AfAm (>60 ml/min/1.73 sqM) Est GFR (CKD-EPI)NonAf (>60 ml/min/1.73 sqM) Glucose (74-99) mg/dL POC Glucose (mg/dL) 488 H (75-99) mg/dL POC Glu Supervisor Diagnostic ID February Plasma Lactic Acid Alberto (0.7-2.0) mmol/L Calcium (8.4-10.2) mg/dL Magnesium (1.6-2.3) mg/dL Total Bilirubin (0.2-1.3) mg/dL AST (14-36) U/L ALT (9-52) U/L Alkaline Phosphatase (38-126) U/L Creatine Kinase (30-135) U/L Troponin I (0.000-0.034) ng/mL NT-Pro-B Natriuret Pep pg/mL Total Protein (6.3-8.2) g/dL Albumin (3.5-5.0) g/dL TSH (0.465-4.680) mIU/L Cortisol ug/dL Urine Color Urine Appearance (Clear) Urine pH (5.0-8.0) Ur Specific [place] (1.001-1.035) Urine Protein (Negative) Urine Glucose (UA) (Negative) Urine Ketones (Negative) Urine Blood (Negative) Urine Nitrite (Negative) Urine Bilirubin (Negative) Urine Urobilinogen (<2.0) mg/dL Ur Leukocyte Esterase (Negative) Urine RBC (0-5) /hpf Urine WBC (0-5) /hpf Ur Squamous Epith Cells (0-4) /hpf Urine Mucus (None) /hpf Urine HCG, Qual (Not Detectd) Acetone, Qual (Negative) Blood Type Blood Type Confirm Blood Type Recheck Antibody Screen Spec Expiration Date 06/30/19 06/30/19 06/30/19 Range/Units 13:26 13:26 14:25 WBC (3.8-10.6) k/uL RBC (3.80-5.40) m/uL Hgb (11.4-16.0) gm/dL Hct (34.0-46.0) % MCV (80.0-100.0) fL MCH (25.0-35.0) pg MCHC (31.0-37.0) g/dL RDW (11.5-15.5) % Plt Count (150-450) k/uL Neutrophils % (Manual) % Band Neutrophils % % Lymphocytes % (Manual) % Monocytes % (Manual) % Metamyelocytes % % Myelocytes % % Neutrophils # (Manual) (1.3-7.7) k/uL Lymphocytes # (Manual) (1.0-4.8) k/uL Monocytes # (Manual) (0-1.0) k/uL Metamyelocytes # (Man) (0) k/uL Myelocytes # (Manual) (0) k/uL Nucleated RBCs (0-0) /100 WBC Manual Slide Review Toxic Granulation Toxic Vacuolation Hypochromasia Anisocytosis Microcytosis PT (9.0-12.0) sec INR (<1.2) APTT (22.0-30.0) sec D-Dimer (<0.60) mg/L FEU Sodium (137-145) mmol/L Potassium (3.5-5.1) mmol/L Chloride (98-107) mmol/L Carbon Dioxide (22-30) mmol/L Anion Gap mmol/L BUN (7-17) mg/dL Creatinine (0.52-1.04) mg/dL Est GFR (CKD-EPI)AfAm (>60 ml/min/1.73 sqM) Est GFR (CKD-EPI)NonAf (>60 ml/min/1.73 sqM) Glucose (74-99) mg/dL POC Glucose (mg/dL) (75-99) mg/dL POC Glu Supervisor Diagnostic ID Plasma Lactic Acid Alberto (0.7-2.0) mmol/L Calcium (8.4-10.2) mg/dL Magnesium (1.6-2.3) mg/dL Total Bilirubin (0.2-1.3) mg/dL AST (14-36) U/L ALT (9-52) U/L Alkaline Phosphatase (38-126) U/L Creatine Kinase (30-135) U/L Troponin I <0.012 (0.000-0.034) ng/mL NT-Pro-B Natriuret Pep 607 pg/mL Total Protein (6.3-8.2) g/dL Albumin (3.5-5.0) g/dL TSH (0.465-4.680) mIU/L Cortisol ug/dL Urine Color Urine Appearance (Clear) Urine pH (5.0-8.0) Ur Specific [place] (1.001-1.035) Urine Protein (Negative) Urine Glucose (UA) (Negative) Urine Ketones (Negative) Urine Blood (Negative) Urine Nitrite (Negative) Urine Bilirubin (Negative) Urine Urobilinogen (<2.0) mg/dL Ur Leukocyte Esterase (Negative) Urine RBC (0-5) /hpf Urine WBC (0-5) /hpf Ur Squamous Epith Cells (0-4) /hpf Urine Mucus (None) /hpf Urine HCG, Qual (Not Detectd) Acetone, Qual (Negative) Blood Type O Positive Blood Type Confirm Blood Type Recheck CABO Indicated Antibody Screen NEGATIVE Spec Expiration Date 07/03/2019232406/30/19 06/30/19 06/30/19 Range/Units 14:25 14:25 14:25 WBC (3.8-10.6) k/uL RBC (3.80-5.40) m/uL Hgb (11.4-16.0) gm/dL Hct (34.0-46.0) % MCV (80.0-100.0) fL MCH (25.0-35.0) pg MCHC (31.0-37.0) g/dL RDW (11.5-15.5) % Plt Count (150-450) k/uL Neutrophils % (Manual) % Band Neutrophils % % Lymphocytes % (Manual) % Monocytes % (Manual) % Metamyelocytes % % Myelocytes % % Neutrophils # (Manual) (1.3-7.7) k/uL Lymphocytes # (Manual) (1.0-4.8) k/uL Monocytes # (Manual) (0-1.0) k/uL Metamyelocytes # (Man) (0) k/uL Myelocytes # (Manual) (0) k/uL Nucleated RBCs (0-0) /100 WBC Manual Slide Review Toxic Granulation Toxic Vacuolation Hypochromasia Anisocytosis Microcytosis PT (9.0-12.0) sec INR (<1.2) APTT (22.0-30.0) sec D-Dimer (<0.60) mg/L FEU Sodium 125 L (137-145) mmol/L Potassium 4.4 (3.5-5.1) mmol/L Chloride 89 L (98-107) mmol/L Carbon Dioxide 20 L (22-30) mmol/L Anion Gap 16 mmol/L BUN 35 H (7-17) mg/dL Creatinine 0.68 (0.52-1.04) mg/dL Est GFR (CKD-EPI)AfAm >90 (>60 ml/min/1.73 sqM) Est GFR (CKD-EPI)NonAf >90 (>60 ml/min/1.73 sqM) Glucose 415 H (74-99) mg/dL POC Glucose (mg/dL) (75-99) mg/dL POC Glu Supervisor Diagnostic ID Plasma Lactic Acid Alberto 1.4 (0.7-2.0) mmol/L Calcium 9.1 (8.4-10.2) mg/dL Magnesium 1.8 (1.6-2.3) mg/dL Total Bilirubin 0.4 (0.2-1.3) mg/dL AST 19 (14-36) U/L ALT 29 (9-52) U/L Alkaline Phosphatase 134 H (38-126) U/L Creatine Kinase <20 L (30-135) U/L Troponin I (0.000-0.034) ng/mL NT-Pro-B Natriuret Pep pg/mL Total Protein 6.3 (6.3-8.2) g/dL Albumin 3.0 L (3.5-5.0) g/dL TSH 2.690 (0.465-4.680) mIU/L Cortisol 30 ug/dL Urine Color Urine Appearance (Clear) Urine pH (5.0-8.0) Ur Specific [place] (1.001-1.035) Urine Protein (Negative) Urine Glucose (UA) (Negative) Urine Ketones (Negative) Urine Blood (Negative) Urine Nitrite (Negative) Urine Bilirubin (Negative) Urine Urobilinogen (<2.0) mg/dL Ur Leukocyte Esterase (Negative) Urine RBC (0-5) /hpf Urine WBC (0-5) /hpf Ur Squamous Epith Cells (0-4) /hpf Urine Mucus (None) /hpf Urine HCG, Qual (Not Detectd) Acetone, Qual Positive (Negative) Blood Type Blood Type Confirm Blood Type Recheck Antibody Screen Spec Expiration Date 06/30/19 06/30/19 06/30/19 Range/Units 14:48 15:23 15:23 WBC (3.8-10.6) k/uL RBC (3.80-5.40) m/uL Hgb (11.4-16.0) gm/dL Hct (34.0-46.0) % MCV (80.0-100.0) fL MCH (25.0-35.0) pg MCHC (31.0-37.0) g/dL RDW (11.5-15.5) % Plt Count (150-450) k/uL Neutrophils % (Manual) % Band Neutrophils % % Lymphocytes % (Manual) % Monocytes % (Manual) % Metamyelocytes % % Myelocytes % % Neutrophils # (Manual) (1.3-7.7) k/uL Lymphocytes # (Manual) (1.0-4.8) k/uL Monocytes # (Manual) (0-1.0) k/uL Metamyelocytes # (Man) (0) k/uL Myelocytes # (Manual) (0) k/uL Nucleated RBCs (0-0) /100 WBC Manual Slide Review Toxic Granulation Toxic Vacuolation Hypochromasia Anisocytosis Microcytosis PT (9.0-12.0) sec INR (<1.2) APTT (22.0-30.0) sec D-Dimer (<0.60) mg/L FEU Sodium (137-145) mmol/L Potassium (3.5-5.1) mmol/L Chloride (98-107) mmol/L Carbon Dioxide (22-30) mmol/L Anion Gap mmol/L BUN (7-17) mg/dL Creatinine (0.52-1.04) mg/dL Est GFR (CKD-EPI)AfAm (>60 ml/min/1.73 sqM) Est GFR (CKD-EPI)NonAf (>60 ml/min/1.73 sqM) Glucose (74-99) mg/dL POC Glucose (mg/dL) (75-99) mg/dL POC Glu Supervisor Diagnostic ID Plasma Lactic Acid Alberto (0.7-2.0) mmol/L Calcium (8.4-10.2) mg/dL Magnesium (1.6-2.3) mg/dL Total Bilirubin (0.2-1.3) mg/dL AST (14-36) U/L ALT (9-52) U/L Alkaline Phosphatase (38-126) U/L Creatine Kinase (30-135) U/L Troponin I (0.000-0.034) ng/mL NT-Pro-B Natriuret Pep pg/mL Total Protein (6.3-8.2) g/dL Albumin (3.5-5.0) g/dL TSH (0.465-4.680) mIU/L Cortisol ug/dL Urine Color Yellow Urine Appearance Clear (Clear) Urine pH 5.5 (5.0-8.0) Ur Specific [place] 1.049 H (1.001-1.035) Urine Protein 1+ H (Negative) Urine Glucose (UA) 4+ H (Negative) Urine Ketones 2+ H (Negative) Urine Blood Moderate H (Negative) Urine Nitrite Negative (Negative) Urine Bilirubin Negative (Negative) Urine Urobilinogen <2.0 (<2.0) mg/dL Ur Leukocyte Esterase Negative (Negative) Urine RBC 23 H (0-5) /hpf Urine WBC 2 (0-5) /hpf Ur Squamous Epith Cells <1 (0-4) /hpf Urine Mucus Rare H (None) /hpf Urine HCG, Qual Not Detected (Not Detectd) Acetone, Qual (Negative) Blood Type Blood Type Confirm O Positive Blood Type Recheck Antibody Screen Spec Expiration Date 06/30/19 Range/Units 18:23 WBC (3.8-10.6) k/uL RBC (3.80-5.40) m/uL Hgb (11.4-16.0) gm/dL Hct (34.0-46.0) % MCV (80.0-100.0) fL MCH (25.0-35.0) pg MCHC (31.0-37.0) g/dL RDW (11.5-15.5) % Plt Count (150-450) k/uL Neutrophils % (Manual) % Band Neutrophils % % Lymphocytes % (Manual) % Monocytes % (Manual) % Metamyelocytes % % Myelocytes % % Neutrophils # (Manual) (1.3-7.7) k/uL Lymphocytes # (Manual) (1.0-4.8) k/uL Monocytes # (Manual) (0-1.0) k/uL Metamyelocytes # (Man) (0) k/uL Myelocytes # (Manual) (0) k/uL Nucleated RBCs (0-0) /100 WBC Manual Slide Review Toxic Granulation Toxic Vacuolation Hypochromasia Anisocytosis Microcytosis PT (9.0-12.0) sec INR (<1.2) APTT (22.0-30.0) sec D-Dimer (<0.60) mg/L FEU Sodium (137-145) mmol/L Potassium (3.5-5.1) mmol/L Chloride (98-107) mmol/L Carbon Dioxide (22-30) mmol/L Anion Gap mmol/L BUN (7-17) mg/dL Creatinine (0.52-1.04) mg/dL Est GFR (CKD-EPI)AfAm (>60 ml/min/1.73 sqM) Est GFR (CKD-EPI)NonAf (>60 ml/min/1.73 sqM) Glucose (74-99) mg/dL POC Glucose (mg/dL) 353 H (75-99) mg/dL POC Glu Supervisor Diagnostic ID Maryam Bhat Plasma Lactic Acid Alberto (0.7-2.0) mmol/L Calcium (8.4-10.2) mg/dL Magnesium (1.6-2.3) mg/dL Total Bilirubin (0.2-1.3) mg/dL AST (14-36) U/L ALT (9-52) U/L Alkaline Phosphatase (38-126) U/L Creatine Kinase (30-135) U/L Troponin I (0.000-0.034) ng/mL NT-Pro-B Natriuret Pep pg/mL Total Protein (6.3-8.2) g/dL Albumin (3.5-5.0) g/dL TSH (0.465-4.680) mIU/L Cortisol ug/dL Urine Color Urine Appearance (Clear) Urine pH (5.0-8.0) Ur Specific [place] (1.001-1.035) Urine Protein (Negative) Urine Glucose (UA) (Negative) Urine Ketones (Negative) Urine Blood (Negative) Urine Nitrite (Negative) Urine Bilirubin (Negative) Urine Urobilinogen (<2.0) mg/dL Ur Leukocyte Esterase (Negative) Urine RBC (0-5) /hpf Urine WBC (0-5) /hpf Ur Squamous Epith Cells (0-4) /hpf Urine Mucus (None) /hpf Urine HCG, Qual (Not Detectd) Acetone, Qual (Negative) Blood Type Blood Type Confirm Blood Type Recheck Antibody Screen Spec Expiration Date Disposition Clinical Impression: Hypotension, Dehydration, Hyponatremia, Hyperglycemia, AICD (automatic cardiove rter/defibrillator) present, Cardiomyopathy, Chronic systolic heart failure Disposition: ADMITTED IP TO THIS [facility] Condition: Serious Is patient prescribed a controlled substance at d/c from ED?: No Decision to Admit Reason: Admit from EC Decision Date: 06/30/19 Decision Time: 18:21
[2019-06-30 14:09] LABS: Anisocytosis Slight; HCT 41.5 % (34.0-46.0); HGB 13.1 gm/dL (11.4-16.0); Hypochromasia Slight; MCHC 31.5 g/dL (31.0-37.0); MCV 79.3 fL (80.0-100.0); Mean Platelet Volume 9.6; Microcytosis Slight; Platelet Count 194 k/uL (150-450); RBC 5.23 m/uL (3.80-5.40); RDW 18.5 % (11.5-15.5); WBC 23.5 k/uL (3.8-10.6)
[2019-06-30 14:13] LABS: INR 1.1 (<1.2); Partial Thromboplastin Time 29.1 sec (22.0-30.0); Prothrombin Time 11.2 sec (9.0-12.0)
[2019-06-30 14:17] LABS: D-Dimer 1.42 mg/L FEU (<0.60)
[2019-06-30 14:30] LABS: Band Neutrophils % 15 %; Lymphocytes # (M) 0.94 k/uL (1.0-4.8); Metamyelocytes # (M) 0.71 k/uL (0); Metamyelocytes % 3 %; Monocytes # (M) 2.82 k/uL (0-1.0); Myelocytes # (M) 0.94 k/uL (0); Myelocytes % 4 %; Neutrophils % (M) 64 %; Nucleated Red Blood Cells 0 /100 WBC (0-0); Total Cells Counted 200
[2019-06-30 14:31] LABS: Toxic Granulation Present; Toxic Vacuolation Present
[2019-06-30 14:42] LABS: Anion Gap 16 mmol/L; Carbon Dioxide 20 mmol/L (22-30); Chloride 89 mmol/L (98-107); Glucose 415 mg/dL (74-99); Potassium 4.4 mmol/L (3.5-5.1); Sodium 125 mmol/L (137-145); Total Protein 6.3 g/dL (6.3-8.2)
[2019-06-30 14:43] LABS: ALT 29 U/L (9-52); AST 19 U/L (14-36); African American GFR (CKD) >90 (>60 ml/min/1.73 sqM); Alkaline Phosphatase 134 U/L (38-126); Blood Urea Nitrogen 35 mg/dL (7-17); Calcium 9.1 mg/dL (8.4-10.2); Creatine Kinase <20 U/L (30-135); Magnesium 1.8 mg/dL (1.6-2.3); Non-African American GFR(CKD) >90 (>60 ml/min/1.73 sqM); Total Bilirubin 0.4 mg/dL (0.2-1.3)
[2019-06-30 15:42] LABS: Appearance,Urine Clear (Clear); Bilirubin,Urine Negative (Negative); Blood,Urine Moderate (Negative); Color,Urine Yellow; Glucose,Urine (UA) 4+ (Negative); Leukocyte Esterase,Urine Negative (Negative); Mucus,Urine Rare /hpf; Nitrite,Urine Negative (Negative); PH, Urine 5.5 (5.0-8.0); Protein,Urine 1+ (Negative); RBC,Urine 23 /hpf (0-5); Squamous Epithelial Cell,Urine <1 /hpf (0-4); Urobilinogen,Urine <2.0 mg/dL (<2.0); WBC,Urine 2 /hpf (0-5)
[2019-06-30] MEDS: SODIUM CHLORIDE 0.9% 1,000 ML IV SCH (15:45)
[2019-06-30 15:47] LABS: Specific Gravity,Urine 1.049 (1.001-1.035)
[2019-06-30 15:48] LABS: Ketones,Urine 2+ (Negative)
[2019-06-30] MEDS ORDERED: HYDROmorphone 0.5 MG/0.5 ML SYRINGE IVP PRN (18:20)
[2019-06-30] MEDS ORDERED: NALOXONE 0.4 MG/ML 1 ML VIAL IV PRN ×2 (18:20→18:21)
[2019-06-30] MEDS ORDERED: CYCLOBENZAPRINE 10 MG TAB PO PRN (18:23)
[2019-06-30 18:25] LABS: Glucose,Whole Blood 353 mg/dL (75-99)
--- NOTE | 2019-06-30 18:31 | P.HPIM ---
History of Present Illness H&P Date: 06/30/19 Chief Complaint: Back pain 43-year-old female with a history of non-ischemic cardiomyopathy status post AICD, EF 30-35%, DM 2, was hospitalized in Nov 26 at [facility] for TTP and was treated with IgG infusion and plasmapheresis, that hospital course was complicated with thrombosis as well as pulmonary embolism for which she has been on long-term anticoagulation with oral anticoagulants, patient has been having severe back pain worsening over the past week. Pain is located in the lower back. It radiates to the left leg. She cannot move or do anything due to the pain. She wakes up at night every hour because of discomfort/pain. She also complained from subjective fevers and chills. According to the family patient has not been eating or drinking over the past week because she has not been functional, in addition she has not been taking her insulin. No shortness of breath, no chest pain, no diarrhea, nausea or vomiting. No focal weakness or numbness. Of note she has been following up with atr Whyte because of her symptoms order CT angiogram of the chest and Doppler ultrasound of the lower extremities in order to rule out thrombosis. Review of Systems Complete review of system performed, pertinent positives per HPI, otherwise negative. Past Medical History Past Medical History: Diabetes Mellitus, Hyperlipidemia, Hypertension, Skin Disorder, Sleep Apnea/CPAP/BIPAP Additional Past Medical History / Comment(s): Gets cysts, boil left outer thigh, - resolved. Back pain-currently waiting to have back surgery - Fusion L4-L5. "Weak and enlarged heart." CPAP use, IBS, nerve pain in right leg, occasionally in left leg. History of Any Multi-Drug Resistant Organisms: None Reported Past Surgical History: AICD, Back Surgery, Heart Catheterization, Pacemaker Additional Past Surgical History / Comment(s): Tubes brandie ears, right ear surgery, removal of cyst from ovaries. Past Anesthesia/Blood Transfusion Reactions: No Reported Reaction Type of Cardiac Device: AICD Device Placement Date:: 2017 Past Psychological History: Anxiety, Depression Smoking Status: Current every day smoker Past Alcohol Use History: Occasional Past Drug Use History: None Reported - Past Family History Mother Family Medical History: Cancer Additional Family Medical History / Comment(s): melanoma Medications and Allergies Home Medications Medication Instructions Recorded Confirmed Type Lisinopril [Zestril] 10 mg PO DAILY 04/07/18 06/30/19 History Insulin Glargine [Lantus] 40 unit SQ DAILY 01/13/19 06/30/19 History sitaGLIPtin [Januvia] 100 mg PO DAILY 05/15/19 06/30/19 History Amitriptyline HCl [Elavil] 10 mg PO HS 06/30/19 06/30/19 History Apixaban [Eliquis] 5 mg PO BID 06/30/19 06/30/19 History Buprenorphine HCl [Belbuca] 450 mcg PO BID 06/30/19 06/30/19 History Carvedilol 25 mg PO BID 06/30/19 06/30/19 History Cyclobenzaprine HCl 10 mg PO HS PRN 06/30/19 06/30/19 History Desvenlafaxine Succinate [Pristiq] 100 mg PO DAILY 06/30/19 06/30/19 History FLUoxetine HCL [PROzac] 20 mg PO DAILY 06/30/19 06/30/19 History Insulin Lispro [humaLOG Kwikpen] 10 unit SQ AC-TID 06/30/19 06/30/19 History Spironolactone 25 mg PO DAILY 06/30/19 06/30/19 History busPIRone HCl [Buspar] 10 mg PO BID 06/30/19 06/30/19 History methylPREDNISolone [Medrol Dose See Taper PO DIRECTED 06/30/19 06/30/19 History Pack] valACYclovir HCL [Valacyclovir] 1,000 mg PO BID PRN 06/30/19 06/30/19 History Allergies Allergy/AdvReac Type Severity Reaction Status Date / Time No Known Allergies Allergy Verified 06/30/19 13:12 Physical Exam Vitals: Vital Signs Temp Pulse Resp BP Pulse Ox 06/30/19 17:30 86 18 89/54 99 06/30/19 16:14 87 18 86/58 99 06/30/19 14:29 81 18 91/58 99 06/30/19 13:28 97.5 F L 80 18 76/46 100 06/30/19 13:10 81 18 77/49 96 06/30/19 12:59 90 16 64/41 99 Intake and Output 06/30/19 06/30/19 06/30/19 06:59 14:59 22:59 Other: Weight 79.379 kg Constitutional: No acute distress, conversant, pleasant Eyes:Anicteric sclerae, moist conjunctiva, no lid-lag, PERRLA, ENMT: Oropharynx clear, no erythema, exudates, dry mucous membranes Neck: Supple, FROM, no masses, or JVD, No carotid bruits, No thyromegaly Lungs: Clear to auscultation, Clear to percussion, Normal respiratory effort, no accessory muscle use Cardiovascular: Heart regular in rate and rhythm, No murmurs, gallops, or rubs, No peripheral edema Abdominal: Soft, Nontender, no guarding, rebound or rigidity, Normoactive bowel sounds, No hepatomegaly, No splenomegaly, No palpable mass Skin: Normal temperature, tone, texture, turgor, no induration, No subcutaneous nodules, No rash, lesions, No ulcers Extremities: Severe pain with any movement of the left lower extremity. No digital cyanosis, No clubbing, Pedal pulses intact and symmetrical, Radial pulses intact and symmetrical, No calf tenderness Psychiatric: Alert and oriented to person, place and time, appropriate affect, intact judgement Neuro: Muscles Strength 5/5 in all 4 extremities, Sensation to light touch grossly present throughout, Cranial nerves II-XII grossly intact, no focal sensory deficits Results CBC & Chem 7: 06/30/19 13:26 06/30/19 14:25 Labs: Abnormal Lab Results - Last 24 Hours (Table) 06/30/19 06/30/19 06/30/19 Range/Units 13:15 13:26 13:26 WBC 23.5 H (3.8-10.6) k/uL MCV 79.3 L (80.0-100.0) fL RDW 18.5 H (11.5-15.5) % Neutrophils # (Manual) 18.50 H (1.3-7.7) k/uL Lymphocytes # (Manual) 0.94 L (1.0-4.8) k/uL Monocytes # (Manual) 2.82 H (0-1.0) k/uL Metamyelocytes # (Man) 0.71 H (0) k/uL Myelocytes # (Manual) 0.94 H (0) k/uL D-Dimer 1.42 H (<0.60) mg/L FEU Sodium (137-145) mmol/L Chloride (98-107) mmol/L Carbon Dioxide (22-30) mmol/L BUN (7-17) mg/dL Glucose (74-99) mg/dL POC Glucose (mg/dL) 488 H (75-99) mg/dL Alkaline Phosphatase (38-126) U/L Creatine Kinase (30-135) U/L Albumin (3.5-5.0) g/dL Ur Specific [place] (1.001-1.035) Urine Protein (Negative) Urine Glucose (UA) (Negative) Urine Ketones (Negative) Urine Blood (Negative) Urine RBC (0-5) /hpf Urine Mucus (None) /hpf 06/30/19 06/30/19 Range/Units 14:25 15:23 WBC (3.8-10.6) k/uL MCV (80.0-100.0) fL RDW (11.5-15.5) % Neutrophils # (Manual) (1.3-7.7) k/uL Lymphocytes # (Manual) (1.0-4.8) k/uL Monocytes # (Manual) (0-1.0) k/uL Metamyelocytes # (Man) (0) k/uL Myelocytes # (Manual) (0) k/uL D-Dimer (<0.60) mg/L FEU Sodium 125 L (137-145) mmol/L Chloride 89 L (98-107) mmol/L Carbon Dioxide 20 L (22-30) mmol/L BUN 35 H (7-17) mg/dL Glucose 415 H (74-99) mg/dL POC Glucose (mg/dL) (75-99) mg/dL Alkaline Phosphatase 134 H (38-126) U/L Creatine Kinase <20 L (30-135) U/L Albumin 3.0 L (3.5-5.0) g/dL Ur Specific [place] 1.049 H (1.001-1.035) Urine Protein 1+ H (Negative) Urine Glucose (UA) 4+ H (Negative) Urine Ketones 2+ H (Negative) Urine Blood Moderate H (Negative) Urine RBC 23 H (0-5) /hpf Urine Mucus Rare H (None) /hpf Assessment and Plan Plan: #1 Hypotension/severe dehydration/adult failure to thrive IV fluids Encourage eating #2 Leukocytosis Unclear etiology No evidence of infection at this point Follow in a.m. #3 Severe back pain status post back surgery, with fusion L4-L5 in August of last year [facility] for pain Consult orthopedics Order CT back in a.m. #4 Diabetes type 2, uncontrolled She has not been taking her insulin We'll resume Add sliding scale insulin with blood sugar checks every before meals and at bedtime #5 Dilated cardiomyopathy status post ICD Stable Continue meds #6 History of DVT and PE Continue anticoagulation Patient will require more than 2 midnight stay due to severity of the above medical conditions
[2019-06-30] MEDS: KETOROLAC 30 MG/ML 1 ML VIAL IVP PRN (20:37)
[2019-06-30 20:42] LABS: Glucose,Whole Blood 266 mg/dL (75-99)
[2019-06-30] MEDS ORDERED: AMITRIPTYLINE HCL 10 MG TAB PO SCH (21:00)
[2019-06-30] MEDS: INSULIN ASPART (NovoLOG) 100 UNIT/ML VIAL SQ SCH (21:21)
[2019-06-30] MEDS: busPIRone HCl 10 MG TAB PO SCH (21:21)
[2019-06-30] MEDS: INSULIN DETEMIR (LEVEMIR) 100 UNIT/ML SYR SQ SCH (21:21)
[2019-06-30] MEDS: APIXABAN 5 MG TAB PO SCH (21:22)
[2019-07-01 02:02] LABS: Glucose,Whole Blood 234 mg/dL (75-99)
[2019-07-01] MEDS: SODIUM CHLORIDE 0.9% 1,000 ML IV SCH ×2 (05:36→17:51)
[2019-07-01] MEDS: KETOROLAC 30 MG/ML 1 ML VIAL IVP PRN (05:36)
[2019-07-01 07:04] LABS: Glucose,Whole Blood 191 mg/dL (75-99)
[2019-07-01] MEDS: INSULIN ASPART (NovoLOG) 100 UNIT/ML VIAL SQ SCH ×6 (07:05→17:33)
[2019-07-01 07:34] LABS: ALT 27 U/L (9-52); AST 18 U/L (14-36); African American GFR (CKD) >90 (>60 ml/min/1.73 sqM); Albumin 2.9 g/dL (3.5-5.0); Alkaline Phosphatase 132 U/L (38-126); Anion Gap 11 mmol/L; Blood Urea Nitrogen 23 mg/dL (7-17); Calcium 8.8 mg/dL (8.4-10.2); Carbon Dioxide 24 mmol/L (22-30); Chloride 96 mmol/L (98-107); Glucose 193 mg/dL (74-99); Non-African American GFR(CKD) >90 (>60 ml/min/1.73 sqM); Phosphorus 3.2 mg/dL (2.5-4.5); Potassium 4.1 mmol/L (3.5-5.1); Sodium 131 mmol/L (137-145); Total Bilirubin 0.5 mg/dL (0.2-1.3); Total Protein 6.3 g/dL (6.3-8.2)
[2019-07-01 08:26] LABS: Anisocytosis Slight; HCT 36.6 % (34.0-46.0); HGB 11.5 gm/dL (11.4-16.0); Hypochromasia Slight; MCH 24.4 pg (25.0-35.0); MCHC 31.5 g/dL (31.0-37.0); MCV 77.4 fL (80.0-100.0); Microcytosis Slight; Platelet Count 196 k/uL (150-450); RBC 4.74 m/uL (3.80-5.40); RDW 18.3 % (11.5-15.5); WBC 21.9 k/uL (3.8-10.6)
[2019-07-01] MEDS ORDERED: LINAGLIPTIN 5 MG TABLET PO SCH (09:00)
[2019-07-01] MEDS ORDERED: FLUoxetine HCL 20 MG CAP PO SCH (09:00)
[2019-07-01] MEDS ORDERED: DESVENLAFAXINE SUCCINATE 50 MG TAB.ER.24H PO SCH (09:00)
[2019-07-01] MEDS: APIXABAN 5 MG TAB PO SCH (09:55)
[2019-07-01] MEDS: busPIRone HCl 10 MG TAB PO SCH (09:55)
[2019-07-01] MEDS: INSULIN DETEMIR (LEVEMIR) 100 UNIT/ML SYR SQ SCH (09:55)
[2019-07-01 11:47] LABS: Glucose,Whole Blood 290 mg/dL (75-99)
[2019-07-01 12:23] LABS: Band Neutrophils % 14 %; Lymphocytes # (M) 1.53 k/uL (1.0-4.8); Metamyelocytes # (M) 1.53 k/uL (0); Metamyelocytes % 7 %; Monocytes # (M) 1.97 k/uL (0-1.0); Myelocytes # (M) 0.88 k/uL (0); Myelocytes % 4 %; Neutrophils % (M) 60 %; Nucleated Red Blood Cells 0 /100 WBC (0-0); Promyelocytes # (M) 0.22 k/uL (0); Promyelocytes % 1 %; Total Cells Counted 200
[2019-07-01 12:24] LABS: Poikilocytosis (M) Present
--- NOTE | 2019-07-01 12:52 | P.PN ---
Subjective Progress Note Date: 07/01/19 Principal diagnosis: Back pain Patient is doing better, still having back pain. Blood pressure is still borderline. Still on IV fluids. She was not treated with Dilaudid due to hypotension. No chest pain or shortness of breath. Objective - Vital Signs Vital signs: Vital Signs Temp 98.1 F 07/01/19 11:39 Pulse 95 07/01/19 11:39 Resp 16 07/01/19 11:39 BP 101/58 07/01/19 11:39 Pulse Ox 100 07/01/19 11:39 Intake & Output 06/30/19 07/01/19 07/01/19 18:59 06:59 18:59 Intake Total 615 Output Total 800 Balance -800 615 Weight 79.379 kg 76.5 kg Intake: Intake, IV Titration 375 Amount Sodium Chloride 0.9% 1, 375 000 ml @ 75 mls/hr IV . [id number] [facility] Rx#:[id number] Oral 240 Output: Urine 800 - Exam Constitutional: No acute distress, conversant, pleasant Eyes:Anicteric sclerae, moist conjunctiva, no lid-lag, PERRLA, ENMT: Oropharynx clear, no erythema, exudates, dry mucous membranes Neck: Supple, FROM, no masses, or JVD, No carotid bruits, No thyromegaly Lungs: Clear to auscultation, Clear to percussion, Normal respiratory effort, no accessory muscle use Cardiovascular: Heart regular in rate and rhythm, No murmurs, gallops, or rubs, No peripheral edema Abdominal: Soft, Nontender, no guarding, rebound or rigidity, Normoactive bowel sounds, No hepatomegaly, No splenomegaly, No palpable mass Skin: Normal temperature, tone, texture, turgor, no induration, No subcutaneous nodules, No rash, lesions, No ulcers Extremities: Severe pain with any movement of the left lower extremity. No digital cyanosis, No clubbing, Pedal pulses intact and symmetrical, Radial puls es intact and symmetrical, No calf tenderness Psychiatric: Alert and oriented to person, place and time, appropriate affect, intact judgement Neuro: Muscles Strength 5/5 in all 4 extremities, Sensation to light touch grossly present throughout, Cranial nerves II-XII grossly intact, no focal sens ory deficits - Labs CBC & Chem 7: 07/01/19 06:19 07/01/19 06:19 Labs: Abnormal Lab Results - Last 24 Hours (Table) 06/30/19 06/30/19 06/30/19 Range/Units 13:15 13:26 13:26 WBC 23.5 H (3.8-10.6) k/uL MCV 79.3 L (80.0-100.0) fL MCH (25.0-35.0) pg RDW 18.5 H (11.5-15.5) % Neutrophils # (Manual) 18.50 H (1.3-7.7) k/uL Lymphocytes # (Manual) 0.94 L (1.0-4.8) k/uL Monocytes # (Manual) 2.82 H (0-1.0) k/uL Metamyelocytes # (Man) 0.71 H (0) k/uL Myelocytes # (Manual) 0.94 H (0) k/uL Promyelocytes # (Man) (0) k/uL D-Dimer 1.42 H (<0.60) mg/L FEU Sodium (137-145) mmol/L Chloride (98-107) mmol/L Carbon Dioxide (22-30) mmol/L BUN (7-17) mg/dL Creatinine (0.52-1.04) mg/dL Glucose (74-99) mg/dL POC Glucose (mg/dL) 488 H (75-99) mg/dL Alkaline Phosphatase (38-126) U/L Creatine Kinase (30-135) U/L Albumin (3.5-5.0) g/dL Ur Specific [place] (1.001-1.035) Urine Protein (Negative) Urine Glucose (UA) (Negative) Urine Ketones (Negative) Urine Blood (Negative) Urine RBC (0-5) /hpf Urine Mucus (None) /hpf 06/30/19 06/30/19 06/30/19 Range/Units 14:25 15:23 18:23 WBC (3.8-10.6) k/uL MCV (80.0-100.0) fL MCH (25.0-35.0) pg RDW (11.5-15.5) % Neutrophils # (Manual) (1.3-7.7) k/uL Lymphocytes # (Manual) (1.0-4.8) k/uL Monocytes # (Manual) (0-1.0) k/uL Metamyelocytes # (Man) (0) k/uL Myelocytes # (Manual) (0) k/uL Promyelocytes # (Man) (0) k/uL D-Dimer (<0.60) mg/L FEU Sodium 125 L (137-145) mmol/L Chloride 89 L (98-107) mmol/L Carbon Dioxide 20 L (22-30) mmol/L BUN 35 H (7-17) mg/dL Creatinine (0.52-1.04) mg/dL Glucose 415 H (74-99) mg/dL POC Glucose (mg/dL) 353 H (75-99) mg/dL Alkaline Phosphatase 134 H (38-126) U/L Creatine Kinase <20 L (30-135) U/L Albumin 3.0 L (3.5-5.0) g/dL Ur Specific [place] 1.049 H (1.001-1.035) Urine Protein 1+ H (Negative) Urine Glucose (UA) 4+ H (Negative) Urine Ketones 2+ H (Negative) Urine Blood Moderate H (Negative) Urine RBC 23 H (0-5) /hpf Urine Mucus Rare H (None) /hpf 06/30/19 07/01/19 07/01/19 Range/Units 20:41 02:00 06:19 WBC 21.9 H (3.8-10.6) k/uL MCV 77.4 L (80.0-100.0) fL MCH 24.4 L (25.0-35.0) pg RDW 18.3 H (11.5-15.5) % Neutrophils # (Manual) 16.20 H (1.3-7.7) k/uL Lymphocytes # (Manual) (1.0-4.8) k/uL Monocytes # (Manual) 1.97 H (0-1.0) k/uL Metamyelocytes # (Man) 1.53 H (0) k/uL Myelocytes # (Manual) 0.88 H (0) k/uL Promyelocytes # (Man) 0.22 H (0) k/uL D-Dimer (<0.60) mg/L FEU Sodium (137-145) mmol/L Chloride (98-107) mmol/L Carbon Dioxide (22-30) mmol/L BUN (7-17) mg/dL Creatinine (0.52-1.04) mg/dL Glucose (74-99) mg/dL POC Glucose (mg/dL) 266 H 234 H (75-99) mg/dL Alkaline Phosphatase (38-126) U/L Creatine Kinase (30-135) U/L Albumin (3.5-5.0) g/dL Ur Specific [place] (1.001-1.035) Urine Protein (Negative) Urine Glucose (UA) (Negative) Urine Ketones (Negative) Urine Blood (Negative) Urine RBC (0-5) /hpf Urine Mucus (None) /hpf 07/01/19 07/01/19 07/01/19 Range/Units 06:19 07:03 11:46 WBC (3.8-10.6) k/uL MCV (80.0-100.0) fL MCH (25.0-35.0) pg RDW (11.5-15.5) % Neutrophils # (Manual) (1.3-7.7) k/uL Lymphocytes # (Manual) (1.0-4.8) k/uL Monocytes # (Manual) (0-1.0) k/uL Metamyelocytes # (Man) (0) k/uL Myelocytes # (Manual) (0) k/uL Promyelocytes # (Man) (0) k/uL D-Dimer (<0.60) mg/L FEU Sodium 131 L (137-145) mmol/L Chloride 96 L (98-107) mmol/L Carbon Dioxide (22-30) mmol/L BUN 23 H (7-17) mg/dL Creatinine 0.41 L (0.52-1.04) mg/dL Glucose 193 H (74-99) mg/dL POC Glucose (mg/dL) 191 H 290 H (75-99) mg/dL Alkaline Phosphatase 132 H (38-126) U/L Creatine Kinase (30-135) U/L Albumin 2.9 L (3.5-5.0) g/dL Ur Specific [place] (1.001-1.035) Urine Protein (Negative) Urine Glucose (UA) (Negative) Urine Ketones (Negative) Urine Blood (Negative) Urine RBC (0-5) /hpf Urine Mucus (None) /hpf Assessment and Plan Plan: #1 Hypotension/severe dehydration/adult failure to thrive IV fluids Encourage eating #2 Leukocytosis Unclear etiology. Trending down No evidence of infection at this point Follow in a.m. #3 Severe back pain status post back surgery, with fusion L4-L5 in August of last year Dilaudid IV for pain Consult orthopedics Further imaging of the lower back according to orthopedics #4 Diabetes type 2, controlled She has not been taking her insulin prior to admission Resume home insulin regimen in addition to sliding scale insulin with blood sugar checks every before meals and at bedtime #5 Dilated cardiomyopathy status post ICD Stable Continue meds #6 History of DVT and PE Continue anticoagulation
--- NOTE | 2019-07-01 13:14 | P.CNOR ---
History of Present Illness - [facility] Consult date: 07/01/19 History of present illness: This patient is a 43-year-old female with a past medical history of fusion of L4 - L5 in August of last year by a surgeon at [facility], cardiomyopathy, diabetes type 2, hypertension, hyperlipidemia, hospitalization at [facility] for TTP in November 2018 with development of pulmonary embolism who has been on long-term anticoagulation that presented to [facility] ER on 06/30/19 for complaints of severe back pain. The patient states that she was at the hospital yesterday for a CT angiogram of the chest and a Doppler ultrasound of the lower extremities ordered by Dr. Chavez, who she follows with on an outpatient basis, to rule out thrombosis. She states following these procedures, she presented to the ER for evaluation of her back pain, as "she cannot take anymore ". She states this back pain has been ongoing for about 6 weeks, there is no injury that she is aware of. She states she has been seen by multiple physicians, including her primary care physician, who put the patient on steroids and muscle relaxers. She states that the pain did not improve with these medications. She states she decided to come to the ER yesterday because she was sick of the pain. Patient states she has not eaten, or gotten out of bed throughout the past week due this pain. She states she also has been experiencing subjective fevers and chills. She states she's also been very tired. She localizes the pain to lumbar spine with radiation across the entire lower back. She denies bowel or bladder dysfunction. She denies radiation of the pain into the lower extremities. She denies numbness, tingling, weakness of the lower extremities. She voices no other orthopedic complaints at the time of exam. Past Medical History Past Medical History: Diabetes Mellitus, Hyperlipidemia, Hypertension, Skin Disorder, Sleep Apnea/CPAP/BIPAP Additional Past Medical History / Comment(s): Gets cysts, boil left outer thigh, - resolved. Back pain-currently waiting to have back surgery - Fusion L4-L5. "Weak and enlarged heart." CPAP use, IBS, nerve pain in right leg, occasionally in left leg. History of Any Multi-Drug Resistant Organisms: None Reported Past Surgical History: AICD, Back Surgery, Heart Catheterization, Pacemaker Additional Past Surgical History / Comment(s): Tubes brandie ears, right ear surgery, removal of cyst from ovaries. Past Anesthesia/Blood Transfusion Reactions: No Reported Reaction Type of Cardiac Device: AICD Device Placement Date:: 2017 Past Psychological History: Anxiety, Depression Smoking Status: Current every day smoker Past Alcohol Use History: Occasional Past Drug Use History: None Reported - Past Family History Mother Family Medical History: Cancer Additional Family Medical History / Comment(s): melanoma Medications and Allergies Home Medications Medication Instructions Recorded Confirmed Type Lisinopril [Zestril] 10 mg PO DAILY 04/07/18 06/30/19 History Insulin Glargine [Lantus] 40 unit SQ DAILY 01/13/19 06/30/19 History sitaGLIPtin [Januvia] 100 mg PO DAILY 05/15/19 06/30/19 History Amitriptyline HCl [Elavil] 10 mg PO HS 06/30/19 06/30/19 History Apixaban [Eliquis] 5 mg PO BID 06/30/19 06/30/19 History Buprenorphine HCl [Belbuca] 450 mcg PO BID 06/30/19 06/30/19 History Carvedilol 25 mg PO BID 06/30/19 06/30/19 History Cyclobenzaprine HCl 10 mg PO HS PRN 06/30/19 06/30/19 History Desvenlafaxine Succinate [Pristiq] 100 mg PO DAILY 06/30/19 06/30/19 History FLUoxetine HCL [PROzac] 20 mg PO DAILY 06/30/19 06/30/19 History Insulin Lispro [humaLOG Kwikpen] 10 unit SQ AC-TID 06/30/19 06/30/19 History Spironolactone 25 mg PO DAILY 06/30/19 06/30/19 History busPIRone HCl [Buspar] 10 mg PO BID 06/30/19 06/30/19 History methylPREDNISolone [Medrol Dose See Taper PO DIRECTED 06/30/19 06/30/19 Hist ory Pack] valACYclovir HCL [Valacyclovir] 1,000 mg PO BID PRN 06/30/19 06/30/19 History Allergies Allergy/AdvReac Type Severity Reaction Status Date / Time No Known Allergies Allergy Verified 06/30/19 13:12 Physical Examination On examination, the patient is lying in bed in no acute distress. She is alert and oriented 3. She appears fatigued on exam. Her head is normocephalic and atraumatic. Her breathing appears nonlabored. On inspection of the lower back, there are no open wounds, lacerations, abrasions, or bruising. There is tenderness to palpation at the lumbar spine, and across the lower back. She is nontender to palpation of the thoracic or cervical spine. There is no pain with passive range of motion of her bilateral hips. She is able to perform a straight leg raise bilaterally. Patient is able to dorsiflex and plantarflex her bilateral ankles with good strength. EHL is intact bilaterally. Sensation is intact subjectively to light touch of the lower extremities bilaterally. Bilateral lower extremities are warm and well-perfused with brisk capillary refill of her toes. Calves are soft and nontender bilaterally. Results - Labs Labs: Abnormal Lab Results - Last 24 Hours (Table) 06/30/19 06/30/19 06/30/19 Range/Units 13:15 13:26 13:26 WBC 23.5 H (3.8-10.6) k/uL MCV 79.3 L (80.0-100.0) fL MCH (25.0-35.0) pg RDW 18.5 H (11.5-15.5) % Neutrophils # (Manual) 18.50 H (1.3-7.7) k/uL Lymphocytes # (Manual) 0.94 L (1.0-4.8) k/uL Monocytes # (Manual) 2.82 H (0-1.0) k/uL Metamyelocytes # (Man) 0.71 H (0) k/uL Myelocytes # (Manual) 0.94 H (0) k/uL D-Dimer 1.42 H (<0.60) mg/L FEU Sodium (137-145) mmol/L Chloride (98-107) mmol/L Carbon Dioxide (22-30) mmol/L BUN (7-17) mg/dL Creatinine (0.52-1.04) mg/dL Glucose (74-99) mg/dL POC Glucose (mg/dL) 488 H (75-99) mg/dL Alkaline Phosphatase (38-126) U/L Creatine Kinase (30-135) U/L Albumin (3.5-5.0) g/dL Ur Specific [place] (1.001-1.035) Urine Protein (Negative) Urine Glucose (UA) (Negative) Urine Ketones (Negative) Urine Blood (Negative) Urine RBC (0-5) /hpf Urine Mucus (None) /hpf 06/30/19 06/30/19 06/30/19 Range/Units 14:25 15:23 18:23 WBC (3.8-10.6) k/uL MCV (80.0-100.0) fL MCH (25.0-35.0) pg RDW (11.5-15.5) % Neutrophils # (Manual) (1.3-7.7) k/uL Lymphocytes # (Manual) (1.0-4.8) k/uL Monocytes # (Manual) (0-1.0) k/uL Metamyelocytes # (Man) (0) k/uL Myelocytes # (Manual) (0) k/uL D-Dimer (<0.60) mg/L FEU Sodium 125 L (137-145) mmol/L Chloride 89 L (98-107) mmol/L Carbon Dioxide 20 L (22-30) mmol/L BUN 35 H (7-17) mg/dL Creatinine (0.52-1.04) mg/dL Glucose 415 H (74-99) mg/dL POC Glucose (mg/dL) 353 H (75-99) mg/dL Alkaline Phosphatase 134 H (38-126) U/L Creatine Kinase <20 L (30-135) U/L Albumin 3.0 L (3.5-5.0) g/dL Ur Specific [place] 1.049 H (1.001-1.035) Urine Protein 1+ H (Negative) Urine Glucose (UA) 4+ H (Negative) Urine Ketones 2+ H (Negative) Urine Blood Moderate H (Negative) Urine RBC 23 H (0-5) /hpf Urine Mucus Rare H (None) /hpf 06/30/19 07/01/19 07/01/19 Range/Units 20:41 02:00 06:19 WBC 21.9 H (3.8-10.6) k/uL MCV 77.4 L (80.0-100.0) fL MCH 24.4 L (25.0-35.0) pg RDW 18.3 H (11.5-15.5) % Neutrophils # (Manual) (1.3-7.7) k/uL Lymphocytes # (Manual) (1.0-4.8) k/uL Monocytes # (Manual) (0-1.0) k/uL Metamyelocytes # (Man) (0) k/uL Myelocytes # (Manual) (0) k/uL D-Dimer (<0.60) mg/L FEU Sodium (137-145) mmol/L Chloride (98-107) mmol/L Carbon Dioxide (22-30) mmol/L BUN (7-17) mg/dL Creatinine (0.52-1.04) mg/dL Glucose (74-99) mg/dL POC Glucose (mg/dL) 266 H 234 H (75-99) mg/dL Alkaline Phosphatase (38-126) U/L Creatine Kinase (30-135) U/L Albumin (3.5-5.0) g/dL Ur Specific [place] (1.001-1.035) Urine Protein (Negative) Urine Glucose (UA) (Negative) Urine Ketones (Negative) Urine Blood (Negative) Urine RBC (0-5) /hpf Urine Mucus (None) /hpf 07/01/19 07/01/19 07/01/19 Range/Units 06:19 07:03 11:46 WBC (3.8-10.6) k/uL MCV (80.0-100.0) fL MCH (25.0-35.0) pg RDW (11.5-15.5) % Neutrophils # (Manual) (1.3-7.7) k/uL Lymphocytes # (Manual) (1.0-4.8) k/uL Monocytes # (Manual) (0-1.0) k/uL Metamyelocytes # (Man) (0) k/uL Myelocytes # (Manual) (0) k/uL D-Dimer (<0.60) mg/L FEU Sodium 131 L (137-145) mmol/L Chloride 96 L (98-107) mmol/L Carbon Dioxide (22-30) mmol/L BUN 23 H (7-17) mg/dL Creatinine 0.41 L (0.52-1.04) mg/dL Glucose 193 H (74-99) mg/dL POC Glucose (mg/dL) 191 H 290 H (75-99) mg/dL Alkaline Phosphatase 132 H (38-126) U/L Creatine Kinase (30-135) U/L Albumin 2.9 L (3.5-5.0) g/dL Ur Specific [place] (1.001-1.035) Urine Protein (Negative) Urine Glucose (UA) (Negative) Urine Ketones (Negative) Urine Blood (Negative) Urine RBC (0-5) /hpf Urine Mucus (None) /hpf H & H 06/30/19 07/01/19 Range/Units 13:26 06:19 Hgb 13.1 11.5 (11.4-16.0) gm/dL Hct 41.5 36.6 (34.0-46.0) % Coagulation 06/30/19 Range/Units 13:26 INR 1.1 (<1.2) Result Diagrams: 07/01/19 06:19 07/01/19 06:19 Assessment and Plan Assessment: Lower back pain History of fusion L4-L5 in August 2018 by a surgeon at [facility] Leukocytosis Plan: - Discussed the clinical findings with the patient. Recommended we obtain lumbar spine x-rays and CT with and without contrast of the lumbar spine to further evaluate her back pain. Further recommendations will be based on these results. - Continue current pain management and medical management per admitting team. Patient discussed with Dr. Carl.
--- NOTE | 2019-07-01 13:54 | XR ---
EXAMINATION TYPE: XR lumbar spine 2 or 3V DATE OF EXAM: 07/01/2019 COMPARISON: None HISTORY: Back pain TECHNIQUE: Three-view lumbar spine FINDINGS: There 5 lumbar-type vertebral bodies. The pedicles are intact. The L4-5 pedicles are poorly visualized due to pedicle screws been present at these locations. Prior surgery is been performed wi th pedicle screws and rods. Disc heights are preserved. A minimal grade 1 spondylolisthesis of L4 anterior on L5 is present. Vert ebral body heights are preserved. IMPRESSION: 1. Postsurgical changes L4-5 with grade 1 anterolisthesis of L4 on L5
--- NOTE | 2019-07-01 14:11 | CT ---
EXAMINATION TYPE: CT lumbar spine w con DATE OF EXAM: 07/01/2019 COMPARISON: Plain films. HISTORY: Low back pain and leg weakness CT DLP: 1296 mGycm CONTRAST: CT scan of the lumbar is performed with IV Contrast, patient injected with 100 mL of Isovue 300. TECHNIQUE: CT of the lumbar spine is performed on a spiral scan at 3 mm thick sections. Reconstructed images are performed in the coronal and sagittal planes. FINDINGS: There is a large low-density collection which extends from the paraspinal region at L5 post eriorly to the L3 level. This is slightly lower central density. Differential could include abscess f ormation or pseudomeningocele. Some extension to the left paracentral region at the level of L4 may b e present. Ultrasound may be useful for additional evaluation. MRI may be required. T12-L1: No focal disc herniation or significant disc bulge is evident. No spinal canal stenosis or neural foraminal stenosis is present. L1-L2: No focal disc herniation or significant disc bulge is evident. No spinal canal stenosis or n eural foraminal stenosis is present L2-L3: No focal disc herniation or significant disc bulge is evident. No spinal canal stenosis or n eural foraminal stenosis is present L3-L4: Disc bulge is present with mild anterior thecal sac contact. Facet degenerative changes corn picker ior lateral thecal sac compression from facet hypertrophy. L4-L5: Pedicle screws and fixation rods are present. There is a grade 1 spondylolisthesis. Laminectom ies been performed L4 and L5. L5-S1: No focal disc herniation or significant disc bulge is evident. No spinal canal stenosis or n eural foraminal stenosis is present Vertebral body heights are preserved. Remaining vertebral body alignment be on the L4-5 anterolisthes is is normal. IMPRESSION: 9.2 x 4.6 x 7.3 cm lower density collection in the left paraspinal posterior paraspinal regions exten ding from L3 to L5. Abscess formation and pseudomeningocele are within the differential. Consider MR I or ultrasound for additional evaluation. Report was called to Concepcion, the patients nurse, by Dr Dario bauer by telephone at the time of interpretation.
[2019-07-01 14:42] VITALS: BMI 27.2
[2019-07-01 16:51] VITALS: BP 137/62; PULSE 127; RESP 18; TEMP 101.1
[2019-07-01 17:07] LABS: Glucose,Whole Blood 226 mg/dL (75-99)
[2019-07-01] MEDS ORDERED: ACETAMINOPHEN TAB 325 MG TAB PO PRN (17:13)
[2019-07-01] MEDS ORDERED: VANCOMYCIN IV PER PHARMACY 1 EACH MISC MISCELLANE PRN (17:19)
--- NOTE | 2019-07-01 17:29 | P.DS ---
Providers Date of admission: 06/30/19 18:24 Expected date of discharge: 07/01/19 Attending physician: Maggy Keane DO Consults: 06/30/19 18:22 Consult Physician Routine Consulting Provider: Devin Carl Consult Reason/Comments: back pain Do you want consulting provider notified?: Yes Primary care physician: Wilton Mcguire [facility] Course: 43-year-old female with a history of non-ischemic cardiomyopathy status post AICD, EF 30-35%, DM 2, was hospitalized in Nov 26 at [facility] for TTP and was treated with IgG infusion and plasmapheresis, that hospital course was complicated with thrombosis as well as pulmonary embolism for which she has been on long-term anticoagulation with oral anticoagulants, patient has been having severe back pain worsening over the past week. Pain is located in the lower back. It radiates to the left leg. She cannot move or do anything due to the pain. She wakes up at night every hour because of discomfort/pain. She also c omplained from subjective fevers and chills. According to the family patient has not been eating or drinking over the past week because she has not been functional, in addition she has not been taking her insulin or any other medication. No shortness of breath, no chest pain, no diarrhea, nausea or vomiting. No focal weakness or numbness. Of note she has been following up with [facility] because of her symptoms order CT angiogram of the chest and Doppler ultrasound of the lower extremities in order to rule out thrombosis. Patient was admitted to the hospital. Evaluation in the emergency department revealed significant hypertension with systolic blood pressure in the 70s and 80s. Labs revealed sodium level of 125. Leukocytosis with WBC count 23,000. Glucose 488. Patient was diagnosed with severe dehydration, hyponatremia secondary to dehydration as well as sepsis. Orthopedic was consulted, computed tomography scan of the lumbar spine was ordered and that showed an abscess at the level of L4 and 5. Patient was started on Tylenol for fevers, antibiotics, broad-spectrum Zosyn and vancomycin with abscess. She was kept on IV fluids. Her blood pressure and sodium level improved. Leukocytosis improved a little as well. The orthopedic surgeon here did not feel comfortable managing this and because of that patient was transferred to [facility] for further evaluation and management. Discharge diagnoses Severe sepsis with hypotension Severe dehydration/adult failure to thrive Leukocytosis Severe back pain status post back surgery, with fusion L4-L5 in August of last year secondary to abscess Diabetes type 2, uncontrolled Dilated cardiomyopathy status post ICD Patient Condition at Discharge: Serious Plan - Discharge Summary Discharge Rx Participant: Yes New Discharge Prescriptions: No Action RX: Lisinopril [Zestril] 10 mg PO DAILY RX: Insulin Glargine [Lantus] 40 unit SQ DAILY sitaGLIPtin [Januvia] 100 mg PO DAILY valACYclovir HCL [Valacyclovir] 1,000 mg PO BID PRN PRN Reason: OUTBREAK methylPREDNISolone [Medrol Dose Pack] See Taper PO DIRECTED Buprenorphine HCl [Belbuca] 450 mcg PO BID Insulin Lispro [humaLOG Kwikpen] 10 unit SQ AC-TID Spironolactone 25 mg PO DAILY RX: FLUoxetine HCL [PROzac] 20 mg PO DAILY Desvenlafaxine Succinate [Pristiq] 100 mg PO DAILY busPIRone HCl [Buspar] 10 mg PO BID Cyclobenzaprine HCl 10 mg PO HS PRN PRN Reason: Muscle Spasm Carvedilol 25 mg PO BID Apixaban [Eliquis] 5 mg PO BID Amitriptyline HCl [Elavil] 10 mg PO HS Discharge Medication List RX: Lisinopril [Zestril] 10 mg PO DAILY 04/07/18 [History] RX: Insulin Glargine [Lantus] 40 unit SQ DAILY 01/13/19 [History] sitaGLIPtin [Januvia] 100 mg PO DAILY 05/15/19 [History] Amitriptyline HCl [Elavil] 10 mg PO HS 06/30/19 [History] Apixaban [Eliquis] 5 mg PO BID 06/30/19 [History] Buprenorphine HCl [Belbuca] 450 mcg PO BID 06/30/19 [History] Carvedilol 25 mg PO BID 06/30/19 [History] Cyclobenzaprine HCl 10 mg PO HS PRN 06/30/19 [History] Desvenlafaxine Succinate [Pristiq] 100 mg PO DAILY 06/30/19 [History] Insulin Lispro [humaLOG Kwikpen] 10 unit SQ AC-TID 06/30/19 [History] RX: FLUoxetine HCL [PROzac] 20 mg PO DAILY 06/30/19 [History] Spironolactone 25 mg PO DAILY 06/30/19 [History] busPIRone HCl [Buspar] 10 mg PO BID 06/30/19 [History] methylPREDNISolone [Medrol Dose Pack] See Taper PO DIRECTED 06/30/19 [History] valACYclovir HCL [Valacyclovir] 1,000 mg PO BID PRN 06/30/19 [History] Follow up Appointment(s)/Referral(s): Wilton Richards MD [Primary Care Provider] - 1-2 days
[2019-07-01] MEDS ORDERED: PIPERACILLIN-TAZOBACTAM 3.375 GM in SODIUM CHLORIDE 0.9% 100 ML IVPB SCH (18:00)
[2019-07-01] MEDS ORDERED: ACETAMINOPHEN TAB 325 MG TAB PO STA (18:27)
[2019-07-01] MEDS ORDERED: VANCOMYCIN 1,500 MG in SODIUM CHLORIDE 0.9% 250 ML IVPB SCH (20:00)
== END 2019-07-01 19:06 | disposition short-term general hospital (02) | DRG 871 ==
LOC: EC 12:49 → 3SCARD 18:24
PROVIDERS: ADMIT Internal Medicine; ATTEND Internal Medicine
DX: A41.9 Sepsis, unspecified organism (principal); G06.1 Intraspinal abscess and granuloma; E87.1 Hypo-osmolality and hyponatremia; I42.0 Dilated cardiomyopathy; I50.22 Chronic systolic (congestive) heart failure; L02.212 Cutaneous abscess of back [any part, except buttock and flank]; D69.6 Thrombocytopenia, unspecified; E11.65 Type 2 diabetes mellitus with hyperglycemia; E78.5 Hyperlipidemia, unspecified; E86.0 Dehydration; F17.210 Nicotine dependence, cigarettes, uncomplicated; F32.9 Major depressive disorder, single episode, unspecified; F41.9 Anxiety disorder, unspecified; G47.30 Sleep apnea, unspecified; Z99.89 Dependence on other enabling machines and devices; G96.19 Other disorders of meninges, not elsewhere classified; I11.0 Hypertensive heart disease with heart failure; K58.9 Irritable bowel syndrome, unspecified; R62.7 Adult failure to thrive; R65.20 Severe sepsis without septic shock; T38.3X6A Underdosing of insulin and oral hypoglycemic [antidiabetic] drugs, initial encounter; Z79.01 Long term (current) use of anticoagulants; Z79.4 Long term (current) use of insulin; Z79.899 Other long term (current) drug therapy; Z80.8 Family history of malignant neoplasm of other organs or systems; Z86.711 Personal history of pulmonary embolism; Z86.718 Personal history of other venous thrombosis and embolism; Z95.810 Presence of automatic (implantable) cardiac defibrillator; Z98.1 Arthrodesis status
CPT/HCPCS: 36415; 71275; 72100; 72132; 80053; 81001; 81025; 82009; 82533; 82550; 82565; 83605; 83735; 83880; 84100; 84443; 84484; 84520; 85025; 85379; 85610; 85652; 85730; 86140; 86850; 86900; 86901; 93005; 93923; 93970; 96360; 99285

== ENCOUNTER → 2019-06-30 | Outpatient (CLI) | payer BC ==
[2019-06-30 10:25] LABS: Glucose,Whole Blood 449 mg/dL (75-99)
[2019-06-30 10:39] LABS: African American GFR (CKD) >90 (>60 ml/min/1.73 sqM); Blood Urea Nitrogen 29 mg/dL (7-17); Non-African American GFR(CKD) >90 (>60 ml/min/1.73 sqM)
--- NOTE | 2019-06-30 11:38 | CT ---
EXAMINATION TYPE: CT angio chest DATE OF EXAM: 06/30/2019 COMPARISON: 01/14/2019 HISTORY: Pulmonary embolus CT DLP: 246.60 mGycm CONTRAST: CT chest with contrast and 3D reconstruction with MIP imaging is performed without and with IV Contra st, patient injected with 100 ml mL of Isovue 370. Contrast-enhanced CT of the chest was performed through the course of the pulmonary arteries with leonardo g and mediastinal window settings submitted. 3D reconstruction with MIP imaging was also performed. PULMONARY ARTERIES: The pulmonary arteries and their major tributaries are patent. I do not see radha dence for sizable filling defect to suggest pulmonary embolic process. LUNGS: Scattered emphysematous bulla noted as well as a lower lobe bronchial wall thickening and mild bronchiectasis. Scattered focal infiltrates as well as nodular infiltrates are noted which are nonsp ecific and may be on the basis of inflammatory process although appear much improved relative to the prior study. MEDIASTINUM: Thoracic aorta is of normal caliber,however, evaluation is limited given timing of the contrast bolus. If there is concern for thoracic aortic pathology consider KIM. Correlate clinicall y . The heart is not enlarged. No evidence for mediastinal mass. No mediastinal lymph nodes greater than 1cm. HILAR STRUCTURES: No evidence for mass. No hilar lymph nodes greater than 1 cm. UPPER ABDOMEN: No significant abnormality is seen. IMPRESSION: 1. No evidence for Pulmonary embolism at this time. 2.Scattered emphysematous bulla noted as well as a lower lobe bronchial wall thickening and mild bron chiectasis. Scattered focal infiltrates as well as nodular infiltrates are noted which are nonspecifi c and may be on the basis of inflammatory process although appear much improved relative to the prior study.
--- NOTE | 2019-06-30 14:00 | US ---
EXAMINATION TYPE: US venous doppler duplex LE DATE OF EXAM: 06/30/2019 11:56 AM COMPARISON: NONE CLINICAL HISTORY: D68.9. Possible PE per patient SIDE PERFORMED: Bilateral TECHNIQUE: The lower extremity deep venous system is examined utilizing real time linear array sonog norris with graded compression, doppler sonography and color-flow sonography. VESSELS IMAGED: External Iliac Vein (EIV) Common Femoral Vein Deep Femoral Vein Greater Saphenous Vein * Femoral Vein Popliteal Vein Small Saphenous Vein * Proximal Calf Veins (* superficial vessels) Right Leg: Negative for DVT Left Leg: Negative for DVT IMPRESSION: 1. Bilateral lower extremity ultrasound negative for deep venous thrombosis. 2. Due to patient's low blood pressure at the time of this examination, patient was transferred to [facility] emergency room by the patient's sister.
--- NOTE | 2019-07-05 09:01 | P.ARTDOP ---
Arterial Doppler LOWER EXTREMITY ARTERIAL DOPPLER: DATE OF SERVICE: 06/30/2019 Reason for study: Bilateral leg pain. Doppler waveforms: Multiphasic bilaterally throughout. Pulse volume recording: Mild blunting Pressure gradients: Mild gradients below the knee. Ankle-brachial indices: 0.91 on the right and 0.97 on the left. Toe pressures: [] on the right, [] on the left Impression: Mild distal disease. Not consistent with leg pain.
== END | disposition home or self-care (01) ==
LOC: RADCTMAIN 09:40
PROVIDERS: ATTEND Internal Medicine Hematology & Oncology
DX: J43.9 Emphysema, unspecified (principal); J47.9 Bronchiectasis, uncomplicated; J98.4 Other disorders of lung; R91.8 Other nonspecific abnormal finding of lung field; D68.9 Coagulation defect, unspecified
CPT/HCPCS: 82565; 84520; 93923; 93970; 71275; 36415; Q9967

== ENCOUNTER 2019-07-28 18:39 | Emergency (ER) | payer BC ==
[2019-07-28 19:04] VITALS: RESP 18
[2019-07-28] MEDS ORDERED: ALTEPLASE 10 MG in SODIUM CHLORIDE 0.9% 50 ML IVPB ONE (19:25)
[2019-07-28] MEDS ORDERED: cefTRIAXone IN SWFI 1,000 MG/10 ML SYRINGE IVP STA (19:25)
--- NOTE | 2019-07-28 19:59 | ED ---
Recheck HPI - General Chief Complaint: Recheck/Abnormal Lab/Rx Stated Complaint: Picc Line Issues Time Seen by Provider: 07/28/19 19:09 Source: patient, RN notes reviewed, old records reviewed Mode of arrival: ambulatory Limitations: no limitations - History of Present Illness Initial Comments: This is a 44-year-old female the ER for evaluation patient presented today for evaluation of multiple complaints. Patient main complaint is PICC line not working she is on antibiotics for endocarditis. Had recent spinal cord infection, bacteremia no carditis. Patient had PICC line placed in PICC line. Worsening today. Patient also complaining of missing dose of antibiotics today. Patient is also complaining of devon in back being irritated irritating and they have been in for 3 weeks now MD Complaint: wound re-check, suture/staple removal, needs IV antibiotics, other (Unable to take medications secondary to fill PICC line) -: hour(s) Returns Today for: staple/Stitch removal, wound recheck Symptoms Since Prior Visit: no new symptoms Associated Symptoms: none - Related Data Home Medications Medication Instructions Recorded Confirmed Insulin Glargine [Lantus] 60 unit SQ DAILY 01/13/19 07/28/19 Carvedilol 25 mg PO BID 06/30/19 07/28/19 FLUoxetine HCL [PROzac] 20 mg PO DAILY 06/30/19 07/28/19 Insulin Lispro [humaLOG Kwikpen] 10 unit SQ AC-TID 06/30/19 07/28/19 Cholecalciferol [Vitamin D3 (25 1,000 unit PO DAILY 07/28/19 07/28/19 Mcg = 1000 Iu)] Enoxaparin [Lovenox] 80 mg SQ Q12H 07/28/19 07/28/19 Magnesium Oxide [Mag-Ox] 400 mg PO BID 07/28/19 07/28/19 busPIRone HCl [Buspar] 5 mg PO BID 07/28/19 07/28/19 cefTRIAXone SODIUM [Ceftriaxone] 2 gm IV DAILY 07/28/19 07/28/19 Allergies Allergy/AdvReac Type Severity Reaction Status Date / Time No Known Allergies Allergy Verified 07/28/19 19:59 Review of Systems ROS Statement: Those systems with pertinent positive or pertinent negative responses have been documented in the HPI. ROS Other: All systems not noted in ROS Statement are negative. Past Medical History Past Medical History: Diabetes Mellitus, Hyperlipidemia, Hypertension, Skin Disorder, Sleep Apnea/CPAP/BIPAP Additional Past Medical History / Comment(s): Gets cysts, boil left outer thigh, - resolved. Back pain-currently waiting to have back surgery - Fusion L4-L5. "Weak and enlarged heart." CPAP use, IBS, nerve pain in right leg, occasionally in left leg. dicttpitp, antiphosholipid antibody syndrome History of Any Multi-Drug Resistant Organisms: None Reported Past Surgical History: AICD, Back Surgery, Heart Catheterization, Pacemaker Additional Past Surgical History / Comment(s): Tubes brandie ears, right ear surgery, removal of cyst from ovaries, pacemaker and back surigical pieces removed Past Anesthesia/Blood Transfusion Reactions: No Reported Reaction Type of Cardiac Device: AICD Device Placement Date:: 2017 Past Psychological History: Anxiety, Depression Smoking Status: Former smoker Past Alcohol Use History: Occasional Past Drug Use History: None Reported - Past Family History Mother Family Medical History: Cancer Additional Family Medical History / Comment(s): melanoma General Exam - General Exam Comments Initial Comments: Right upper extremity PICC line shows no edema or swelling Limitations: no limitations General appearance: alert, in no apparent distress Head exam: Present: atraumatic, normocephalic, normal inspection Eye exam: Present: normal appearance, PERRL, EOMI. Absent: scleral icterus, conjunctival injection, periorbital swelling ENT exam: Present: normal exam, mucous membranes moist Neck exam: Present: normal inspection. Absent: tenderness, meningismus, lymphadenopathy Respiratory exam: Present: normal lung sounds bilaterally. Absent: respiratory distress, wheezes, rales, rhonchi, stridor Cardiovascular Exam: Present: normal rhythm, tachycardia, normal heart sounds. Absent: systolic murmur, diastolic murmur, rubs, gallop, clicks GI/Abdominal exam: Present: soft, normal bowel sounds. Absent: distended, tenderness, guarding, rebound, rigid Extremities exam: Present: normal inspection, full ROM, normal capillary refill. Absent: tenderness, pedal edema, joint swelling, calf tenderness Back exam: Present: normal inspection, other (Incision is clean dry and intact devon are intact) Neurological exam: Present: alert, oriented X3, CN II-XII intact Psychiatric exam: Present: normal affect, normal mood Skin exam: Present: warm, dry, intact, normal color. Absent: rash Course Vital Signs 07/28/19 19:01 Temperature 99.2 F Pulse Rate 107 H Respiratory 18 Rate Blood Pressure 137/91 O2 Sat by Pulse 99 Oximetry - Reevaluation(s) Reevaluation #1: 07/28/19 19:59 Medical records reviewed Reevaluation #2: 07/28/19 20:43 Here in the emergency room, cast late Flow is using the PICC line, PICC line now flushes well without difficulty, patient's daily dose of IV antibiotics is given here in the ER Reevaluation #3: 07/28/19 20:43 She contacted for swelling of lower extremity on Coumadin with INR of 2.3, no need for further evaluation of lower extremity edema Reevaluation #4: 07/28/19 20:43 Patient has devon removed from her back incision without dehiscence or difficulty Disposition Clinical Impression: Occluded PICC line, Removal of devon Disposition: HOME SELF-CARE Condition: Good Instructions (If sedation given, give patient instructions): How to Flush Your PICC or Midline Catheter (ED), Peripherally Inserted Central Catheters and Midline Catheters (DC), Staple Care (ED) Is patient prescribed a controlled substance at d/c from ED?: No Referrals: Wilton Richards MD [Primary Care Provider] - 1-2 days
[2019-07-28] MEDS ORDERED: ALTEPLASE 2 MG VIAL (CATHFLO) IV ONE (20:00)
[2019-07-28 21:13] VITALS: BP 136/87; PULSE 100; TEMP 99.1
== END 2019-07-28 21:12 | disposition home or self-care (01) ==
LOC: EC 18:39
DX: T82.898A Other specified complication of vascular prosthetic devices, implants and grafts, initial encounter (principal); Z48.02 Encounter for removal of sutures; E11.9 Type 2 diabetes mellitus without complications; I10 Essential (primary) hypertension; F41.9 Anxiety disorder, unspecified; F32.9 Major depressive disorder, single episode, unspecified; G47.30 Sleep apnea, unspecified; Z79.4 Long term (current) use of insulin; Z79.899 Other long term (current) drug therapy; Z79.01 Long term (current) use of anticoagulants; Z87.891 Personal history of nicotine dependence; Z95.0 Presence of cardiac pacemaker; Z95.5 Presence of coronary angioplasty implant and graft
CPT/HCPCS: 99284; 36593; 96374; J0696; J2997